=== PATIENT | female | born 1955 | race Caucasian/White ===

== ENCOUNTER 2025-01-20 12:29 | Inpatient (IN) | payer MEDICARE, SELFPAY ==
[2025-01-20] VITALS (12 sets, daily range): BP systolic 100–219; BP diastolic 61–102; PULSE 53–75; RESP 13–19; TEMP 36.4–36.7; O2SAT 92–96; BMI 21.1
--- NOTE | ~2025-01-20 | CT_ITS ---
EXAMINATION: CT HEAD WITHOUT IV CONTRAST HISTORY: SAENZ, hypertensive. TECHNIQUE: Unenhanced helical CT of the head was performed per standard departmental protocol. Coronal and sagittal reformats of the head were also evaluated. One or more of the following techniques was used for dose reduction: Automated exposure control, adjustment of the mA and/or kV according to patient size, use of iterative reconstruction technique. DLP: 695 mGy-cm COMPARISON: There are no prior studies for comparison. FINDINGS: BRAIN: The brain parenchyma is unremarkable. There is normal hurst/white differentiation. The ventricular system is normal in size and configuration. There is no mass effect or midline shift. No intra- or extra-axial fluid collections are identified. SINUSES: The visualized paranasal sinuses are clear. The mastoid air cells and middle ear cavities are well pneumatized. ORBITS: The visualized orbits are unremarkable. BONES/SOFT TISSUES: The extracranial soft tissues are unremarkable. The calvarium is intact. No suspicious lytic or sclerotic lesions. CT/CT head/brain wo IV con IMPRESSION: Unremarkable unenhanced head CT. Electronically signed by: Nick Guillory MD 01/20/2025 02:29 PM [facility]
--- NOTE | ~2025-01-20 | XR_ITS ---
CLINICAL HISTORY: sob 1 view chest x-ray Comparison: None Findings: The lungs are clear. Heart size is normal. No acute fracture. IMPRESSION: 1. No acute findings. This document has been electronically signed by: Gabino Smith MD on 01/20/2025 20:56:25
--- NOTE | 2025-01-20 12:34 | ED_ITS ---
HPI - General Adult General Chief complaint: Upper Respiratory Symptoms Stated complaint: Flu symptoms Time Seen by Provider: 01/20/25 17:50 Source: patient Limitations: no limitations History of Present Illness ED Provider: Julia Garcia PA-C HPI narrative: 69-year-old female with a history of COPD, hypertension, ongoing tobacco abuse presents with multiple complaints. Patient states she has had cough and cold symptoms for a week. Associated lethargy, nausea, vomiting, diarrhea, body aches and headache. The cough is dry and repetitive. Patient denies sick contacts with similar symptoms. Denies abdominal pain, recent travel, recent use of antibiotics or hospitalizations. Patient states she was seen at urgent care earlier this week, she was given a prescription for her cough, however she can not recall what it was. Related Data Home Medications ?Medication ?Instructions ?Recorded ?Confirmed albuterol sulfate 90 mcg/actuation 2 puff inhalation Q6H PRN wheezing 01/21/25 01/21/25 aerosol inhaler atenolol 25 mg tablet 37.5 mg PO DAILY 01/21/25 01/21/25 cholecalciferol (vitamin D3) 50 50 mcg PO DAILY 01/21/25 01/21/25 mcg (2,000 unit) capsule citalopram 40 mg tablet 40 mg PO DAILY 01/21/25 01/21/25 cyanocobalamin (vitamin B-12) 1,000 mcg PO DAILY 01/21/25 01/21/25 1,000 mcg tablet doxycycline hyclate 100 mg tablet 100 mg PO BID 01/21/25 01/21/25 fluticasone 250 mcg-salmeterol 50 1 ea inhalation BID 01/21/25 01/21/25 mcg/dose blistr powdr for inhalation lisinopril 40 mg tablet 40 mg PO DAILY 01/21/25 01/21/25 ondansetron 4 mg disintegrating 4 mg PO Q8H PRN Nausea And Vomiting 01/21/25 01/21/25 tablet pravastatin 20 mg tablet 20 mg PO DAILY 01/21/25 01/21/25 primidone 50 mg tablet 50 mg PO TID 01/21/25 01/21/25 Allergies Allergy/AdvReac Type Severity Reaction Status Date / Time No Known Allergies Allergy Verified 01/20/25 12:34 Review of Systems 2 Review of Systems: Yes all other systems are reviewed and are negative Constitutional: Constitutional: Reports fatigue, Reports fever(s) and Reports headache(s) ENT: Reports headache(s) Cardiovascular: Cardiovascular: Denies chest pain and Reports dyspnea Respiratory: Respiratory: Denies chest congestion, Reports cough and Reports dyspnea Gastrointestinal: Gastrointestinal: Denies abdominal pain, Reports diarrhea, Reports nausea and Reports vomiting Musculoskeletal: Musculoskeletal: Reports myalgias Neurologic: Reports headache(s) Endocrine: Endocrine: Reports fatigue PMF Past Medical History Attestation statement: The following information was validated with the patient. Medical History (Updated 01/21/25 @ 03:26 by Pal Bello MD) COPD (chronic obstructive pulmonary disease) Smoker unmotivated to quit Essential hypertension Social History Social History Smoked in Last 30 Days: Yes Advance Directives: No Advance Directives Information Provided: No Do you have a plan to hurt others: No Plan Patient : No Physical Exam ED Vital Signs: Vital Signs - 24 hr 01/20/25 12:32 01/20/25 18:32 01/20/25 18:39 Temperature 97.6 F Pulse Rate 75 53 Respiratory Rate 18 Blood Pressure 185/102 H 200/97 H Pulse Oximetry 94 92 Oxygen Delivery Method Room Air Room Air Oxygen Flow Rate 01/20/25 19:01 01/20/25 19:10 01/20/25 19:18 Temperature 98.1 F Pulse Rate 58 61 58 Respiratory Rate 16 15 Blood Pressure 219/87 H 219/87 H 152/72 H Pulse Oximetry 93 93 Oxygen Delivery Method Room Air Nasal Cannula Oxygen Flow Rate 2 01/20/25 19:28 01/20/25 20:08 01/20/25 21:09 Temperature Pulse Rate 57 61 63 Respiratory Rate 13 19 Blood Pressure 180/88 H 171/78 H Pulse Oximetry 95 Oxygen Delivery Method Nasal Cannula Oxygen Flow Rate 2 01/20/25 22:01 01/20/25 22:46 01/20/25 23:52 Temperature 98.1 F 98.0 F Pulse Rate 68 66 75 Respiratory Rate 15 18 17 Blood Pressure 136/66 129/69 100/61 Pulse Oximetry 92 94 93 Oxygen Delivery Method Room Air Room Air Room Air Oxygen Flow Rate 01/21/25 00:52 01/21/25 00:52 01/21/25 02:01 Temperature 97.9 F Pulse Rate 59 Respiratory Rate 18 Blood Pressure 85/43 L 99/54 L 88/44 L Pulse Oximetry 92 Oxygen Delivery Method Room Air Oxygen Flow Rate 01/21/25 02:04 Temperature Pulse Rate Respiratory Rate Blood Pressure 100/51 L Pulse Oximetry Oxygen Delivery Method Oxygen Flow Rate BMI result Body Mass Index 21.1 Const Other: Alert, ill in appearance Orientation/consciousness: patient oriented x3 Neck Other: Full range of motion no meningeal signs Resp Other: Nonlabored respirations, faint rhonchi noted no wheezing Cardio Other: Normal peripheral perfusion Skin Other: Warm dry no rash Neuro General: patient oriented x3, gait normal, no focal motor deficits and CN's II- XI intact bilaterally Psych Other: Cooperative Course Course Course Narrative: This is a Rapid Medical Examination (RME) performed by Rosa Pichardo PA-C in triage. Full HPI, ROS, assessment and treatment plan per primary provider in the Main ED. 69 yo female here for eval of headache, fever (tmax 101), nausea, myalgias x10 days. seen at 5 days ago, tested neg for covid. no known sick contacts. + hypertensive - took her BP meds this morning. self discontinued eliquis 6-7 wks ago. exam nonfocal. Plan: viral swabs, CT head Reevaluation(s) Reevaluation #1: concern for sepsis, the patient is now objectively hypoxic, she is between 89 and 90% on room air with a good pleth, her initial vitals she was 92-94 % RA.... Adding blood cultures, lactic acid and a chest x-ray. Other screening labs and a viral panel were already obtained, she is mildly rhonchorous on exam, I am treating her for bronchitis/COPD exacerbation. Her pressures have been elevated, she does not require weight based IV fluid at this time, starting empiric antibiotic Time: 19:23 Reevaluation #2: Blood pressure refractory, ordering additional IV labetalol Reevaluation #3: Pressures improved, we will give 100 mg of oral labetalol Additional Reevaluation(s): Pressure has remained stable, and We ambulated the patient, her oxygen dropped to 88% she became more dyspneic, we will admit Medications Administered Generic Name Dose Route Start Last Admin Trade Name Freq PRN Reason Stop Dose Admin Albuterol/Ipratropium 3 ml 01/21/25 03:00 01/21/25 07:48 Albuterol/Iprat 2.5/0.5mg 3 Ml Ampul.Neb INHALE 3 ml Q6H TIFFANIE Administration Sodium Chloride 3 ml 01/21/25 08:00 01/21/25 07:35 0.9 % Sodium Chloride Flush 3 Ml Syringe IVFLUSH Not Given QSHIFT TIFFANIE Discontinued Medications Generic Name Dose Route Start Last Admin Trade Name Aung PRN Reason Stop Dose Admin Albuterol/Ipratropium 3 ml 01/20/25 19:22 01/20/25 19:26 Albuterol/Iprat 2.5/0.5mg 3 Ml Ampul.Neb INHALE 01/20/25 19:23 3 ml ONCE ONE Administration Ceftriaxone Sodium 2 gm 01/20/25 19:23 01/20/25 20:05 Ceftriaxone Sodium 2 Gm Vial IVPUSH 01/20/25 19:24 2 gm ONCE ONE Administration Diphenhydramine HCl 25 mg 01/20/25 18:03 01/20/25 18:33 Diphenhydramine Hcl 50 Mg/Ml Vial IVPUSH 01/20/25 18:04 25 mg ONCE ONE Administration Magnesium Sulfate 2 gm in 50 mls @ 25 mls/hr 01/20/25 17:51 01/20/25 21:08 Magnesium Sulfate/H2o IV 01/20/25 19:50 Infused ONCE ONE Infusion Azithromycin 500 mg/ Sodium 250 mls @ 125 mls/hr 01/20/25 20:02 01/20/25 22:47 Chloride IV 01/20/25 22:01 Infused ONCE ONE Infusion Sodium Chloride 1,000 mls @ 999 mls/hr 01/21/25 01:00 01/21/25 02:10 Ns IV 01/21/25 02:00 Infused .Q1H1M TIFFANIE Infusion Sodium Chloride 1,000 mls @ 999 mls/hr 01/21/25 02:15 01/21/25 03:26 Ns IV 01/21/25 03:15 Infused .Q1H1M TIFFANIE Infusion Sodium Chloride 1,000 mls @ 250 mls/hr 01/21/25 02:51 01/21/25 07:35 Ns IVCONT 01/21/25 06:50 Infused .Q4H ONE Infusion Ketorolac Tromethamine 15 mg 01/20/25 18:03 01/20/25 18:33 Ketorolac Tromethamine 15 Mg/Ml Vial IVPUSH 01/20/25 18:04 15 mg ONCE ONE Administration Labetalol HCl 20 mg 01/20/25 18:03 01/20/25 18:32 Labetalol Hcl 100 Mg/20 Ml Vial IVPUSH 01/20/25 18:04 20 mg ONCE ONE Administration Labetalol HCl 30 mg 01/20/25 19:05 01/20/25 19:10 Labetalol Hcl 100 Mg/20 Ml Vial IVPUSH 01/20/25 19:06 30 mg ONCE ONE Administration Labetalol HCl 100 mg 01/20/25 20:37 01/20/25 21:09 Labetalol Hcl 100 Mg Tablet PO 01/20/25 20:38 100 mg ONCE ONE Administration Protocol Methylprednisolone Sodium Succinate 125 mg 01/20/25 19:06 01/20/25 19:11 Methylprednisolone Sod Succ 125 Mg/2 Ml Vial IVPUSH 01/20/25 19:07 125 mg ONCE ONE Administration Ondansetron HCl 4 mg 01/20/25 12:37 01/20/25 12:39 Ondansetron Odt 4 Mg Tab.Rapdis TRANSLINGU 01/20/25 12:38 4 mg ONCE ONE Administration Prochlorperazine Edisylate 10 mg 01/20/25 18:03 01/20/25 18:33 Prochlorperazine Edisylate 10 Mg/2 Ml Vial IVPUSH 01/20/25 18:04 10 mg ONCE ONE Administration Medical Decision Making Medical Decision Making MDM Narrative: 69-year-old female with a history of COPD, hypertension, ongoing tobacco abuse presents with multiple complaints. Patient states she has had cough and cold symptoms for a week. Associated lethargy, nausea, vomiting, diarrhea, body aches and headache. The cough is dry and repetitive. Patient denies sick contacts with similar symptoms. Denies abdominal pain, recent travel, recent use of antibiotics or hospitalizations. Patient states she was seen at urgent care earlier this week, she was given a prescription for her cough, however she can not recall what it was. Problem: COPD History: Per patient I have considered the following differential diagnoses: COPD exacerbation, pneumonia, bronchitis, sepsis, viral syndrome, hypertensive urgency , headache, intracranial hemorrhage, meningitis Plan:concern for sepsis, the patient is now objectively hypoxic, she is between 89 and 90% on room air with a good pleth, her initial vitals she was 92-94 % RA.... Adding blood cultures, lactic acid and a chest x-ray. Other screening labs and a viral panel were already obtained, she is mildly rhonchorous on exam, I am treating her for bronchitis/COPD exacerbation. Her pressures have been elevated, she does not require weight based IV fluid at this time, starting empiric antibiotics. In regard to her hypertension, she takes atenolol, she states she has been taking her medications as directed. We will be treating with IV labetalol. Patient was here also with a headache, likely part of her illness, CT scan of the brain was ordered and is negative. Unclear why this was ordered, the patient was not altered, she is neurologically intact, she is not actively vomiting to suggest an intracranial hemorrhage. Also thought about meningitis, however there were no meningeal signs on exam I have independently reviewed the following tests: Labs: No leukocytosis, not anemic, magnesium low we will replenish with 2 g of magnesium IV, viral panel negative EKG: Normal sinus rhythm, rate of 65, no active ischemic changes no ectopy QTC 457 Chest x-ray:Findings: The lungs are clear. Heart size is normal. No acute fracture. IMPRESSION: 1. No acute findings. CT brain:Unremarkable unenhanced head CT. Lab Data 01/21/25 05:12 01/21/25 05:12 Labs: Lab Results 01/20/25 01/20/25 Range/Units 12:49 19:57 WBC 8.6 (4.8-10.8) X10*3/uL RBC 5.34 (4.20-5.50) X10*6/uL Hgb 16.7 H (12.0-16.0) g/dl Hct 46.5 (37.0-47.0) % MCV 87.1 (80.0-98.0) fL MCH 31.3 (27.0-33.0) pg MCHC 35.9 H (31.0-35.0) g/dl RDW 13.6 (11.0-16.0) % Plt Count 237 (160-400) X10*3/uL MPV 9.7 (9.4-12.3) fL Immature Gran % (Auto) 0.3 (0.0-0.4) % Neut % (Auto) 69.0 (45-73) % Lymph % (Auto) 20.6 (20-40) % [place] % (Auto) 9.4 (2-11) % Eos % (Auto) 0.6 (0-4) % Baso % (Auto) 0.1 (0-2) % Lymph # (Auto) 1.8 (1.2-4.9) X10*3/uL [place] # (Auto) 0.8 (0.1-1.2) X10*3/uL Eos # (Auto) 0.1 (0.0-0.4) X10*3/uL Baso # (Auto) 0.0 (0.0-0.2) X10*3/uL Abs Immat Gran (auto) 0.03 (0.00-0.03) X10*3/uL Absolute Neuts (auto) 5.9 (2.0-8.3) x10*3/uL Absolute Nucleated RBC 0.000 (0.0-0.012) X10*3/uL Nucleated RBC % (auto) 0.0 (0.0-0.2) /100WBC Sodium 131 L (135-145) mmol/L Potassium 4.1 (3.3-5.1) mmol/L Chloride 97 (96-108) mmol/L Carbon Dioxide 20 L (22-29) mmol/L Anion Gap 18 (12-20) BUN 16 (9-16) mg/dL Creatinine 0.71 (0.5-1.4) mg/dL Estim Creat Clear Calc 67.2 Estimated GFR > 60 Random Glucose 104 (60-115) mg/dL Lactic Acid 1.4 (0.5-2.0) mmol/L Calcium 9.7 (8.4-10.2) mg/dL Magnesium 1.3 L* (1.6-2.6) mg/dL Total Bilirubin 0.5 (0.0-1.0) mg/dL AST 24 (5-31) U/L ALT 13 (0-31) U/L Alkaline Phosphatase 128 H (39-117) U/L Troponin I High Sens < 2.7 (<3.5-17.0) ng/L Total Protein 7.8 (6.5-8.0) g/dL Albumin 3.9 (3.5-5.0) g/dL Influenza Type A (PCR) NEGATIVE (Negative) Influenza Type B (PCR) NEGATIVE (Negative) RSV RNA Qual (PCR) NEGATIVE (Negative) SARS-CoV-2 RNA (RT-PCR) NEGATIVE (Negative) Discharge Plan Discharge Clinical Impression: COPD exacerbation, Hypoxia, Hypertensive urgency
[2025-01-20] MEDS: Ondansetron ODT 4 MG TAB.RAPDIS TRANSLINGU (12:39)
--- NOTE | 2025-01-20 12:39 | ECG_ITS ---
Test Reason : HYPERTENSIVE Blood Pressure : */* mmHG Vent. Rate : 65 BPM Atrial Rate : 65 BPM P-R Int : 166 ms QRS Dur : 72 ms QT Int : 440 ms P-R-T Axes : 75 -47 69 degrees QTcB Int : 457 ms Normal sinus rhythm Possible Left atrial enlargement Left anterior fascicular block Inferior infarct , age undetermined Possible Anterior infarct , age undetermined Abnormal ECG When compared with ECG of 07-Jun-2015 14:19, QRS axis Shifted left Inferior infarct is now Present Referred By: Kim Pichardo Electronically Signed By: KASSIE ESCOBAR MD
[2025-01-20 12:56] LABS: MANUAL DIFF FLAG NO
[2025-01-20 12:59] LABS: Basophils Percent Auto 0.1 % (0-2); Eosinophils Absolute Auto 0.1 X10*3/uL (0.0-0.4); Eosinophils Percent Auto 0.6 % (0-4); Hematocrit 46.5 % (37.0-47.0); Hemoglobin 16.7 g/dl (12.0-16.0); Imm Gran Abs Auto 0.03 X10*3/uL (0.00-0.03); Imm Gran Pct Auto 0.3 % (0.0-0.4); Lymphocytes Absolute Auto 1.8 X10*3/uL (1.2-4.9); Lymphocytes Percent Auto 20.6 % (20-40); Mean Corpuscular HGB Conc 35.9 g/dl (31.0-35.0); Mean Corpuscular Hemoglobin 31.3 pg (27.0-33.0); Mean Corpuscular Volume 87.1 fL (80.0-98.0); Mean Platelet Volume 9.7 fL (9.4-12.3); Monocytes Absolute Auto 0.8 X10*3/uL (0.1-1.2); Monocytes Percent Auto 9.4 % (2-11); Neutrophils Absolute Auto 5.9 x10*3/uL (2.0-8.3); Platelet Count 237 X10*3/uL (160-400); Red Blood Count 5.34 X10*6/uL (4.20-5.50); Red Cell Distribution Width 13.6 % (11.0-16.0); White Blood Count 8.6 X10*3/uL (4.8-10.8)
[2025-01-20 13:37] LABS: Influenza A PCR NEGATIVE (Negative); Influenza B PCR NEGATIVE (Negative); Resp Syncy Virus RNA Qual PCR NEGATIVE (Negative); SARS COV2 PCR INHOUSE NEGATIVE (Negative)
[2025-01-20 15:48] LABS: Alkaline Phosphatase 128 U/L (39-117); Anion Gap 18 (12-20)
[2025-01-20 16:24] LABS: Alanine Aminotransferase 13 U/L (0-31); Albumin Level 3.9 g/dL (3.5-5.0); Aspartate Amino Transferase 24 U/L (5-31); Bilirubin Total 0.5 mg/dL (0.0-1.0); Blood Urea Nitrogen 16 mg/dL (9-16); Calcium 9.7 mg/dL (8.4-10.2); Carbon Dioxide 20 mmol/L (22-29); Chloride 97 mmol/L (96-108); Creatinine Clr Calc Pharmacy 67.2; Estimated Glomerular Filt Rate > 60; Glucose Random 104 mg/dL (60-115); Magnesium 1.3 mg/dL (1.6-2.6); Potassium 4.1 mmol/L (3.3-5.1); Sodium 131 mmol/L (135-145); Total Protein 7.8 g/dL (6.5-8.0)
--- OUTSIDE RECORDS SUMMARY | 2025-01-20 18:16 | XMS_ITS | Clinical Summary ---
Author Organization [facility] [employer] [facility] Address [address] [place] [address] Phone Care Team Providers Care Conditioner Tender Name Role Phone Max George MD Primary Care Provider [phone] Allergies No known active allergies Medications apixaban (Eliquis) 5 mg tablet Take 1 tablet (5 mg total) by mouth 2 (two) times a day. 180 tablet 1 09/22/20 24 Active Additional Information Patient not taking.Reported on 01/09/2025 atenoloL (TENORMIN) 25 mg tablet Take 1.5 tablets (37.5 mg total) by mouth 1 (one) time each day. 08/03/20 24 Active betamethasone, augmented, (DIPROLENE-AF) 0.05 % cream APPLY TO AFFECTED AREA TWICE A DAY NEEDED 03/26/20 22 Active cyanocobalamin (VITAMIN B-12) 1,000 mcg tablet Take 1 tablet (1,000 mcg total) by mouth 1 (one) time each day. 08/03/20 24 Active lisinopril (PRINIVIL,ZEST RIL) 40 mg tablet Take 1 tablet (40 mg total) by mouth 1 (one) time each day. 08/03/20 24 Active loperamide (IMODIUM) 2 mg capsule Take 1 Capsule by mouth 2 times daily as needed for Diarrhea. 11/10/20 23 Active primidone (MYSOLINE) 50 mg tablet Take 1 tablet (50 mg total) by mouth 1 (one) time each day. 09/09/20 23 Active pravastatin (PRAVACHOL) 20 mg tablet TAKE 1 TABLET BY MOUTH DAILY 90 tablet 1 12/08/19 25 Active albuterol HFA (PROAIR HFA ; PROVENTIL HFA ; VENTOLIN HFA) 90 mcg/actuation inhaler Inhale 2 puffs by mouth every 6 (six) hours if needed for wheezing. 6.7 g 11 12/12/19 25 026 Active cholecalcifero l (VITAMIN D-3) 25 mcg (1,000 unit) tablet Take 1 tablet (1,000 Units total) by mouth 1 (one) time each day. Active citalopram (CeleXA) 40 mg tablet Take 1 tablet by mouth once daily 90 each 3 01/09/20 25 Active cholecalcifero l (VITAMIN D-3) 50 mcg (2,000 unit) capsule Take 1 capsule (2,000 Units total) by mouth 1 (one) time each day. 08/03/20 24 025 Discontinued citalopram (CeleXA) 20 mg tablet Take 1 tablet (20 mg total) by mouth 1 (one) time each day. 08/03/20 24 025 Discontinued flecainide (TAMBOCOR) 50 mg tablet Take 1 tablet (50 mg total) by mouth 2 (two) times a day. 08/03/20 025 Discontinued furosemide (LASIX) 40 mg tablet Take 1 tablet (40 mg total) by mouth 1 (one) time each day. 09/10/20 23 025 Discontinued Active Problems Problem Noted Date Diagnosed Date Dyspnea 09/10/2023 Overview (10/19/2024): Last Assessment & Plan: The patient had been reporting episodes of shortness of breath with associated chest pain. She underwent a pharmacological nuclear stress test which showed normal perfusion without evidence of ischemia or infarction. We discussed these results. Her symptoms are likely related to her COPD and she continues to follow with pulmonary and has been participating in pulmonary rehab with improvement in her symptoms. She continues on furosemide daily as prescribed. Patient advised to seek emergency medical attention by calling 911 if they were to develop severe dyspnea, chest pain that did not resolve with rest, or if they were to faint. A-fib 09/09/2023 Overview (10/19/2024): Last Assessment & Plan: The patient has a history of paroxysmal atrial fibrillation. She recently completed a 48-hour Holter monitor which showed normal sinus rhythm with sinus bradycardia with an average heart rate of 60 bpm. During times of symptoms, she was noted to be in sinus rhythm. She also completed an echocardiogram which showed normal LV function and no significant valvular abnormalities. Her heart rate is well-controlled today. She continues on rate control therapy with atenolol as prescribed. She is also on flecainide. She denies any perceptions of atrial fibrillation including palpitations or dizziness. She continues on anticoagulation with apixaban 5 mg orally twice daily based on her age, weight, and kidney function. She denies any excessive bruising or bleeding. At this point, we will continue current therapies. Assessment & Plan (01/11/2025 1:43 PM EST): Orders: Complete blood count; Future Comprehensive metabolic panel; Future Thyroid stimulating hormone; Future Lipid panel with reflex to direct LDL; Future Vitamin D 25 hydroxy; Future Chest pain 09/09/2023 Overview (10/19/2024): Last Assessment & Plan: The patient has been reporting episodes of chest discomfort. She does describe that her symptoms are usually worse with exerting herself with activities associated with shortness of breath as well as worse with taking deep breaths. During her hospitalization, inflammatory markers of ESR and CRP were significantly elevated. She was treated presumptively for acute pericarditis with colchicine which she will continue for 3 months. She was not treated for NSAIDs or aspirin given she was just started on Eliquis for new atrial fibrillation. She does report some improvement in her symptoms since her hospitalization. I will have her update new inflammatory markers to assess her ESR and CRP to ensure that they are downtrending. We also discussed that the episodes of chest discomfort and shortness of breath could be related to ischemia as a cause given her cardiac risk factors of hypertension, hyperlipidemia, and chronic tobacco use. I will have her complete an exercise nuclear stress test to assess for ischemia as a cause as well as assess her heart rates during activity. I will notify her of the results of soon as the become available. Patient advised to seek emergency medical attention by calling 911 if they were to develop severe dyspnea, chest pain that did not resolve with rest or nitroglycerin, or if they were to faint. Pulmonary edema 09/09/2023 Stage 1 mild COPD by GOLD classification 023 Overview (10/19/2024): Last Assessment & Plan: 68-year-old woman with stage I COPD Congratulated her because she has been ready more than 6 months without smoking after 40 pack years Continue with dual therapy with Anoro/Ellipta 1 puff once a day Continue with Combivent as a rescue inhaler Patient is already enrolled in the lung cancer screening program Return to clinic in [address] Carballo. B12 deficiency 04/05/2019 Ingrown nail 04/05/2019 Osteopenia 04/05/2019 Panic attack 06/01/2018 Primary osteoarthritis of both shoulders 015 Hyperlipidemia 05/04/2015 Anxiety 10/17/2013 Essential tremor 05/16/2013 Depression 02/14/2013 Insomnia 02/14/2013 HTN (hypertension) 01/24/2013 Overview (10/19/2024): Last Assessment & Plan: Patient's blood pressure is well-controlled today with a reading of 110/60. She will continue her current antihypertensive medication regimen with lisinopril and atenolol as prescribed. Assessment & Plan (01/11/2025 1:43 PM EST): Orders: Complete blood count; Future Comprehensive metabolic panel; Future Thyroid stimulating hormone; Future Lipid panel with reflex to direct LDL; Future Vitamin D 25 hydroxy; Future Macrocytosis 12/10/2010 Vitamin D deficiency 12/09/2010 Assessment & Plan (01/11/2025 1:43 PM EST): Orders: Complete blood count; Future Comprehensive metabolic panel; Future Thyroid stimulating hormone; Future Lipid panel with reflex to direct LDL; Future Vitamin D 25 hydroxy; Future Hand eczema 12/05/2010 Encounters Date Type Department Care Team Description 01/09/2025 3:00 PM EST Office Visit Adult Medicine [address] [phone] Braydon Hunter PA Hypertension, unspecified type (Primary Dx); Atrial fibrillation, unspecified type (CMS/[facility]); Vitamin D deficiency; Tubular adenoma [facility] [address] [place] [address] Julieta Carballo MD Med Refill from Last 3 Months Immunizations Name Administration Dates Next Due Pfizer SARS-CoV-2 COVID-19, mRNA, LNP-S, preservative free 07/05/2021,06/20/2021 Td Tetanus diptheria (Tdvax) 7yo and older 04/27 Tdap Tetanus diptheria acell ular pertussis (Boostrix; Adacel) 7yo and older 03/13/2008 Surgical History Surgery Date Site/Laterality Comments KNEE SURGERY Left PROCEDURE: HISTORICAL KNEE SURGERY APPENDECTOMY PROCEDURE: HISTORICAL APPENDECTOMY COLONOSCOPY 03/12/2017 PROCEDURE: HISTORICAL COLONOSCOPY; COMMENT: normal; repeat in 10 yrs UPPER GASTROINTESTINAL ENDOSCOPY 08/10/2019 PROCEDURE: [place] UPPER GI ENDOSCOPY PERFORMED; COMMENT: Normal; duodenal bx: normal. COLONOSCOPY 08/10/2019 PROCEDURE: HISTORICAL COLONOSCOPY; COMMENT: Solitary 4 mm polyp; random biopsies obtained. Random bx normal; tubular adenoma. Medical History Medical History Date Comments Vitamin D deficiency DX:Vitamin D deficiency Tremor DX:Tremor Vitamin D deficiency disease DX: Vitamin D deficiency disease HTN (hypertension) DX:HTN (hyper tension) Hyperlipidemia DX:Hyperlipidemi a Insomnia DX:Insomnia DJD of shoulder DX:DJD of should er; COMMENT: pt denies this Smoker DX:Smoker Family History Medical History Relation Name Comments Lung cancer Father Diabetes Maternal Grandmother Colon cancer Mother Hypertension Mother Alcohol abuse Sister 1 Cirrhosis Sister 1 Breast cancer Neg Hx Ovarian cancer Neg Hx Relation Name Status Comments Brother Alive Father (Age 83) lung cance r Maternal Grandmother Mother dm, Sister 1 Sister 2 (Age 40's) etoh Sister 3 (Age 40's) etoh Social History Tobacco Use Types Packs/Day Years Used Date Smoking Tobacco: Former Cigarettes Q uit: 07/17/2023 Smokeless Tobacco: Never Alcohol Use Standard Drinks/Week Comments Not Currently 5.8 (1 standard drink = 0.6 oz p ure alcohol) Comments Unknown Sex and Gender Information Value Date Recorded Sex Assigned at Not on file Legal Sex Female 1:40 PM EST Gender Identity Not on file Sexual Orientation Not on file Obstetrics History Last Filed Vital Signs Vital Sign Reading Time Taken Comments Blood Pressure 110/60 08/03/2024 1:58 PM EDT Pulse 56 08/03/2024 1:58 PM EDT Temperature 36.4 ??C (97.6 ??F) 01/09/2025 3:15 PM ES T Respiratory Rate - - Oxygen Saturation - - Inhaled Oxygen Concentration - - Weight 61.2 kg (135 lb) 01/09/2025 3:15 PM EST Height 160 cm (5' 3 ) 01/09/2025 3:15 PM EST Body Mass Index 23.91 01/09/2025 3:15 PM EST Plan of Treatment Upcoming Encounters Date Type Department Care Team (Late st Contact Info) Description 01/26/2025 8:40 AM EDT Office Visit [facility] [address] [place] [address] [place] [address] Lisa Jarvis NP [address] [place] [address] [address] [place] [address] 01/30/2025 2:00 PM EDT Office Visit Pulmonolgy - [facility] [address] [facility] [address] [place] [phone] Julieta Carballo MD [address] [facility] [address] [place] [address] 05/11/2025 2:30 PM EDT Office Visit Adult Medicine [place] - [address] [phone] Stacey Griffin PA [address] [place] [id number] 05/22/2025 1:00 PM EDT Appointment Radiology Department - [address] [phone] Health Maintenance Due Date Last Done Comments Pneumococcal Vaccine: 50+ Years (1 of 2 - PCV) 1974 Zoster Vaccines (1 of 2) 2005 RSV Immunization Patients 60+ Years Old (1 - Risk 60-74 years 1-dose series) 2015 Social Influencers of Health Screening 10/25/2022 COVID-19 Vaccine (3 - season) 2024 07/05/2021, 06/20/2021 Influenza Vaccine (#1) 2024 Colorectal Cancer Screening: Colonoscopy 08/10/2024 08/10/2019, 03/12/2017 Hypertension/CHF/CAD Annual BMP Blood Test 11/10/2024 11/10/2023 Lung Cancer Screening (Low Dose CT) 08/15/2025 08/15/2024, 08/12/2024, 12/28/2022 Depression Screening 01/09/2026 01/09/2025 Falls Risk Assessment 01/09/2026 01/09/2025, 025 Medicare Annual Wellness Visit 01/09/2026 01/09/2025 Breast Cancer Screening 05/12/2026 05/12/20, 05/12/2024, 04/30/2023, Additional history exists Cholesterol Screening (Lipid Panel) 12/05/2027 12/05/2022 DTaP,Tdap,and Td Vaccines (3 - Td or Tdap) 04/27/2028 04/27/2018, 03/13/2008 Osteoporosis Screening (Bone Density Screening) 01/22/2033 01/22/2023, 07/02/2018 Hepatitis C Screening Completed 05/16/2013 HIB Vaccines Aged Out No longer eligi ble based on patient's age to complete this topic HPV Vaccines Aged Out No longer eligi ble based on patient's age to complete this topic Hepatitis A Vaccines Aged Out No long er eligible based on patient's age to complete this topic Hepatitis B Vaccines Aged Out No long er eligible based on patient's age to complete this topic IPV Vaccines Aged Out No longer eligi ble based on patient's age to complete this topic MMR Vaccines Aged Out No longer eligi ble based on patient's age to complete this topic Meningococcal ACWY Vaccine Aged Out N o longer eligible based on patient's age to complete this topic Meningococcal B Vacine Aged Out No lo nger eligible based on patient's age to complete this topic RSV Immunization Patients Under 20 months Aged Out No longer eligible based on patient's age to complete this topic Varicella Vaccines Aged Out No longer eligible based on patient's age to complete this topic Procedures Procedure Name Priority Date/Time Associated Diagnosis Comments CT LUNG SCREENING LOW DOSE Routine 08/15/2024 10:40 AM EDT SCREENING MAMMOGRAPHY BI 2-VIEW BREAST INC CAD Routine 05/12/2024 9:52 AM EDT Encounter for screening mammogram for malignant neoplasm of breast ANNUAL BMP BLOOD TEST Routine 11/10/2023 DXA BONE DENSITY STUDY 1+ SITS AXIAL SKEL Routine 01/22/2023 11:40 AM EST Other specified disorders of bone density and structure, unspecified site LIPID PANEL Routine 12/05/2022 COLONOSCOPY Routine 08/10/2019 HEPATITIS C SCREENING Routine 05/16/2013 from Last 3 Months or Most Recently Relevant to Health Maintenance Results * CT LUNG SCREENING LOW DOSE (08/15/2024 10:40 AM EDT) Anatomical Region Laterality Modality Computed Tomogra phy 08/12/2024 2:27 PM EDT Narrative 08/15/2024 10:40 AM EDT [facility] Diagnostic Imaging Department [address] [place], [place] [id number] Patient: ??RAYA STEINER ?/Age/Sex: 1955 - 69 - F Unit#: ??[id number] ? Location/Status: ??SPDICATLS/REG CLI ? Mnemonic/Ordering Site: ??CTLUNGLD/SPCT Ordering Physician: ??DAVID CRUZ MD CT Lung Screening Low Dose - 08/12/24 - [id number] Report Status:Signed INDICATION: Current smoker with 44 pack-year smoking history FINDINGS: Low-dose CT scan of the chest obtained as a lung cancer screening study. Scanner: NeuroVista speed 64 slice VCT Dose reduction technique: ASIR (Adaptive statistical iterative reconstruction) and/or AEC (automated exposure control) Dose: total exam DLP 168 mGY per cm COMPARISON: Compared to multiple prior studies most recent chest CTA from August 06, 2023. Lung: Emphysematous changes with persistent bilateral upper lobe peripheral groundglass attenuation small nodules suggestive of respiratory bronchiolitis, similar to the prior study. Grouping of 3 adjacent 2 mm nodules noted anteriorly in the right upper lobe seen best on series 3 image 90. Mild parenchymal scarring medial right middle lobe, right lung base and lingula. Resolved small left effusion as well as left lower lobe atelectatic changes. Lymph nodes: No thoracic lymphadenopathy. Mediastinum: Trachea and esophagus are within normal limits. Heart normal in size and shape without pericardial effusion. Mediastinal vascular structures are normal in course and caliber. Bony structures: Within normal limits for the patient's age. IMPRESSION: 3 adjacent 2 mm nodules anteriorly in the right upper lobe are likely post infectious/inflammatory in origin. Lung RADS 2, recommend low-dose screening chest CT in 12 months Dictating Physician: ??LAWRENCE JOHNSTON MD Electronically Signed by: ??LAWRENCE JOHNSTON MD Dic Date/Time: ??08/15/24 1028 Sign date/Time: ??08/15/24 1040 Procedure Note Lawrence Johnston MD - 08/31/2024 [facility] Diagnostic Imaging Department [address] [place] [id number] Patient: RAYA STEINER /Age/Sex: 1955 - 69 - F Unit#: [id number] Location/Status: SPDICATLS/REG CLI [facility] Ordering Physician: DAVID CRUZ MD CT Lung Screening Low Dose - 08/12/24 - [id number] Report Status:Signed INDICATION: Current smoker with 44 pack-year smoking history FINDINGS: Low-dose CT scan of the chest obtained as a lung cancerscreening study. Scanner: NeuroVista speed 64 slice VCT Dose reduction technique: ASIR (Adaptive statistical iterativereconstruction) and/or AEC (automated exposure control) Dose: total exam DLP 168 mGY per cm COMPARISON: Compared to multiple prior studies most recent chest CTAfrom August 06, 2023. Lung: Emphysematous changes with persistent bilateral upper lobeperipheral groundglass attenuation small nodules suggestive of respiratorybronchiolitis, similar to the prior study. Grouping of 3 adjacent 2 mm nodules notedanteriorly in the right upper lobe seen best on series 3 image 90. Mild parenchymal scarring medial right middle lobe, right lung base and lingula. Resolvedsmall left effusion as well as left lower lobe atelectatic changes. Lymph nodes: No thoracic lymphadenopathy. Mediastinum: Trachea and esophagus are within normal limits. Heart normalin size and shape without pericardial effusion. Mediastinal vascularstructures are normal in course and caliber. Bony structures: Within normal limits for the patient's age. IMPRESSION: 3 adjacent 2 mm nodules anteriorly in the right upper lobe are likelypost infectious/inflammatory in origin. Lung RADS 2, recommend low-dose screening chest CT in 12 months Dictating Physician: LAWRENCE JOHNSTON MD Electronically Signed by: LAWRENCE JOHNSTON MD Dic Date/Time: 08/15/24 1028 Sign date/Time: 08/15/24 1040 David Cruz MD IMG CT PROCEDURES Final Result * SCREENING MAMMOGRAPHY BI 2-VIEW BREAST INC CAD (05/12/2024 9:52 AM EDT) Anatomical Region Laterality Modality Radiographic Amisha ging 04/30/2023 3:45 PM EDT Narrative 05/12/2024 12:02 PM EDT This is a summary report. The complete report is available in the patient's medical record. If you cannot access the medical record, please contact the sending organization for a detailed fax or copy. Full field digital screening 2D C views and tomosynthesis mammography, reviewed with CAD and compared to previous. The breasts are composed of fatty and fibroglandular tissue. ??No suspicious mass, architectural distortion or suspicious calcifications are identified. IMPRESSION: : No mammographic evidence of malignancy. BIRADS 1-Negative; N. 5 year breast cancer risk assessment 1.4 % Lifetime breast cancer risk assessment 4.6 % Breast cancer risk category Low (<15%) Procedure Note Samira Lackey MD - 08/31/2024 This is a summary report. The complete report is available in thepatient's medical record. If you cannot access the medical record, pleasecontact the sending organization for a detailed fax or copy. Full field digital screening 2D C views and tomosynthesis mammography,reviewed with CAD and compared to previous. The breasts are composed offatty and fibroglandular tissue. No suspicious mass, architecturaldistortion or suspicious calcifications are identified. IMPRESSION: : No mammographic evidence of malignancy. BIRADS 1-Negative; N. 5 year breast cancer risk assessment 1.4 % Lifetime breast cancer risk assessment 4.6 % Breast cancer risk category Low (<15%) Max George MD IMG XR PROCEDURES Final Result * Annual BMP Blood Test (11/10/2023) HM Annual BMP Blood Test abstracted us Historical Provider HEALTH MAINTENANCE Final Result * DXA BONE DENSITY STUDY 1+ SITS AXIAL SKEL (01/22/2023 11:40 AM EST) Anatomical Region Laterality Modality Bone Densitometr y 11/25/2022 1:49 PM EST Narrative 01/22/2023 8:29 PM EST BONE DENSITY SCAN (DEXA): FINDINGS: Lumbar Spine T-score is 1.0. ?? (SD relative to 20-29 y/o adult) Z-score is 2.9. ??(SD relative to age matched peers) This is considered normal by WHO criteria. Left Hip T-score is -1.6. Z-score is 0.1. This is considered osteopenia by WHO criteria. Comparison exam(s): 07/02/2018. ??5.5% loss of left hip bone mineral density and 5.1% increase in lumbar spine bone mineral density, both statistically significant at the 95% confidence level. IMPRESSION: IMPRESSION: Osteopenia by WHO criteria. This patient has a 8.8% risk of major osteoporotic fracture and a 1.9% risk of hip fracture over the next 10 years. (World Health Organization Fracture Risk Assessment) [facility] Department of Internal Medicine recommends using National Osteoporosis Foundation (NOF) guidelines in treatment decisions related to osteoporosis. NOF guidelines suggest considering treatment for postmenopausal women and men aged 50 or older presenting with the following: History of hip or vertebral fracture. T-score = -2.5 (DXA) at the femoral neck, total hip, or spine, after appropriate evaluation to exclude secondary causes. Low bone mass (T-score between -1.0 and -2.5 at the femoral neck or spine) AND a 10-year probability of a hip fracture = 3% OR a 10-year probability of a major osteoporosis-related fracture = 20% based on the [place]-adapted WHO algorithm Please note that all treatment decisions require clinical judgment and consideration of individual patient factors, including patient preferences, co-morbidities, previous drug use, risk factors not captured in the FRAX model (e.g., frailty, falls, vitamin D deficiency, increased bone turnover, interval significant decline in bone density) and possible under- or over-estimation of fracture risk by FRAX. Optional alternative screening schedule based on kvng Luong., [facility] December 04, 2011 for patients with osteopenia (based on hip BMD T-score) is as follows: * ??advanced osteopenia (T scores -2.00 to -2.49), BMD testing every year * ??moderate osteopenia (T scores -1.50 to -1.99), BMD testing every 5 years mild osteopenia or normal BMD (T scores -1.50 and higher), BMD testing every 15 years Procedure Note Kemi Blanco MD - 12/22/2023 BONE DENSITY SCAN (DEXA): FINDINGS: Lumbar Spine T-score is 1.0. (SD relative to 20-29 y/o adult) Z-score is 2.9. (SD relative to age matched peers) This is considered normal by WHO criteria. Left Hip T-score is -1.6. Z-score is 0.1. This is considered osteopenia by WHO criteria. Comparison exam(s): 07/02/2018. 5.5% loss of left hip bone mineraldensity and 5.1% increase in lumbar spine bone mineral density, both statistically significant atthe 95% confidence level. IMPRESSION: IMPRESSION: Osteopenia by WHO criteria. This patient has a 8.8% risk of majorosteoporotic fracture and a 1.9% risk of hip fracture over the next 10 years. (World HealthOrganization Fracture Risk Assessment) [facility] Department of Internal Medicine recommendsusing National Osteoporosis Foundation (NOF) guidelines in treatment decisions related toosteoporosis. NOF guidelines suggest considering treatment for postmenopausal women and menaged 50 or older presenting with the following: History of hip or vertebral fracture. T-score = -2.5 (DXA) at the femoral neck, total hip, or spine, afterappropriate evaluation to exclude secondary causes. Low bone mass (T-score between -1.0 and -2.5 at the femoral neck or spine)AND a 10-year probability of a hip fracture = 3% OR a 10-year probability of a majorosteoporosis-related fracture = 20% based on the [place]-adapted WHO algorithm Please note that all treatment decisions require clinical judgment andconsideration of individual patient factors, including patient preferences, co- morbidities,previous drug use, risk factors not captured in the FRAX model (e.g., frailty, falls, vitaminD deficiency, increased bone turnover, interval significant decline in bone density) andpossible under- or over-estimation of fracture risk by FRAX. Optional alternative screening schedule based on siena Luong al., NEJMJanuary 2011 for patients with osteopenia (based on hip BMD T-score) is as follows: * advanced osteopenia (T scores -2.00 to -2.49), BMD testing every year * moderate osteopenia (T scores -1.50 to -1.99), BMD testing every 5years mild osteopenia or normal BMD (T scores -1.50 and higher), BMD testingevery 15 years Result [facility] Braydon CAM IMG DXA PROCEDURES Final Result * Lipid panel (12/05/2022) [facility] LDL/HDL Ratio 2 0 - 4 Triglycerides 92 0 - 150 mg/dL Cholesterol 184 0 - 200 mg/dL HDL 88 >=40 mg/dL LDL Cholesterol 78 0 - 100 mg/dL Blood Venous blood specimen / Unknown Result [facility] Historical Provider LAB BLOOD ORDERABLES Mavis l Result * Colonoscopy (08/10/2019) [facility] Colonoscopy no interpreta tion,abstr acted Anatomical Region Laterality Modality Other Result [facility] Historical [facility] Final Result * Hepatitis C Screening (05/16/2013) [facility] Hepatitis C Screening abstracted Result [facility] Historical Provider HEALTH MAINTENANCE Final Result from Last 3 Months or Most Recently Relevant to Health Maintenance Insurance [employer] MEDICARE Advance Directives Documents on File Type Date Recorded Patient Observatory Director Expl anation Health Care Decision (hx) 08/10/2023 AD HAYES DIRECTIVE Health Care Decision (hx) 08/10/2023 AD HAYES DIRECTIVE Health Care Decision (hx) 08/10/2023 AD HAYES DIRECTIVE Health Care Decision (hx) 08/10/2023 AD HAYES DIRECTIVE Health Care Decision (hx) 08/10/2023 AD HAYES DIRECTIVE Care Teams Conditioner Tender Relationship Specialty Start Date End Date Max George MD [address] [place] [address] PCP - General Internal Medicine 05/08/15
--- OUTSIDE RECORDS SUMMARY | 2025-01-20 18:16 | XMS_ITS | Encounter Summary ---
Author Organization [facility] Address [address] [place] [address] Care Team Providers Care Latin Dance Instructor Name Role Phone Max George MD Primary Care Provider [phone] Reason for Referral * Consultation (Routine) - Closed Specialty Diagnoses / Procedures Referred By Chan hinojosa Referred To Contact Gastroenterology Diagnoses Tubular adenoma Braydon Hunter PA [address] [place] [address] Phone: tel: fax: Gastroenterology - [address] [place] [address] Phone: tel: fax: Referral ID Status Reason Start Date Expiration Date V isits Requested Visits Authorized [id number] Closed Specialty Services Required 01/11/2025 01/11/2026 1 1 Reason for Visit * Reason Comments Medicare Annual Wellness Visit Bryant hinojosa Encounter Details Date Type Department Care Team (Late st Contact Info) Description 01/09/2025 3:00 PM EST Office Visit Adult Medicine [facility] [address] [place] [id number] Braydon Hunter PA [address] [place], [place] Hypertension, unspecified type (Primary Dx); Atrial fibrillation, unspecified type (CMS/HCC); Vitamin D deficiency; Tubular adenoma Social History Tobacco Use Types Packs/Day Years [...] on file Sexual Orientation Not on file documented as of this encounter Last Filed Vital Signs Vital Sign Reading Time Taken Comments Blood Pressure - - Pulse - - Temperature 36.4 ??C (97.6 ??F) 01/09/2025 3:15 PM ES T Respiratory Rate - - Oxygen Saturation - - Inhaled Oxygen Concentration - - Weight 61.2 kg (135 lb) 01/09/2025 3:15 PM EST Height 160 cm (5' 3 ) 01/09/2025 3:15 PM EST Body Mass Index 23.91 01/09/2025 3:15 PM EST documented in this encounter Ordered Prescriptions Prescription Sig Dispense Quantity Refills Last Filled Start Date End Date citalopram (CeleXA) 40 mg tablet Take 1 tablet by mouth once daily 90 each 3 01/09/2025 documented in this encounter Progress Notes * DORINA Olson - 01/09/2025 3:00 PM ESTAssociated Problem(s): HTN (hypertension) Orders: Complete blood count; Future Comprehensive metabolic panel; Future Thyroid stimulating hormone; Future Lipid panel with reflex to direct LDL; Future Vitamin D 25 hydroxy; Future * DORINA Olson - 01/09/2025 3:00 PM ESTAssociated Problem(s): A-fib (CMS/HCC) Orders: Complete blood count; Future Comprehensive metabolic panel; Future Thyroid stimulating hormone; Future Lipid panel with reflex to direct LDL; Future Vitamin D 25 hydroxy; Future * DORINA Olson - 01/09/2025 3:00 PM ESTAssociated Problem(s): Vitamin D deficiency Orders: Complete blood count; Future Comprehensive metabolic panel; Future Thyroid stimulating hormone; Future Lipid panel with reflex to direct LDL; Future Vitamin D 25 hydroxy; Future * DORINA Olson - 01/09/2025 3:00 PM EST Medicare Annual Wellness Visit Note Patient Name: Raya Soler Date of : 1955 Race: White Ethnicity: Not Hispan/Lat Date of Service: 01/09/2025 Raya is a 69 y.o. female presenting for Medicare Annual Wellness Visit Subsequent History of Present Illness 69-year-old female here for evaluation of her medical conditions. She is also here for an annual wellness visit. She is atrial fibrillation, anxiety, B12 deficiency, hypertension, hyperlipidemia, vitamin D deficiency. She tells me she takes 40 mg of Celexa, not 20 mg, because she feels this dose works better for her anxiety. She needs a refill. She is seeing the cardio team in regards to her atrial fibrillation. She has not been taking her Eliquis regularly, she plans to discuss this with her cardiology team. We discussed the risks of untreated atrial fibrillation. She feels well. She does not have any complaints or concerns. 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 6.7 g 11 atenoloL (TENORMIN) 25 mg tablet Take 1.5 tablets (37.5 mg total) by mouth 1 (one) time each day. betamethasone, augmented, (DIPROLENE-AF) 0.05 % cream APPLY TO AFFECTED AREA TWICE A DAY NEEDED cholecalciferol (VITAMIN D-3) 25 mcg (1,000 unit) tablet Take 1 tablet (1,000 Units total) by mouth1 (one) time each day. cyanocobalamin (VITAMIN B-12) 1,000 mcg tablet Take 1 tablet (1,000 mcg total) by mouth 1 (one) time each day. lisinopril (PRINIVIL,ZESTRIL) 40 mg tablet Take 1 tablet (40 mg total) by mouth 1 (one) time each day. pravastatin (PRAVACHOL) 20 mg tablet TAKE 1 TABLET BY MOUTH DAILY 90 tablet 1 primidone (MYSOLINE) 50 mg tablet Take 1 tablet (50 mg total) by mouth 1 (one) time each day. apixaban (Eliquis) 5 mg tablet Take 1 tablet (5 mg total) by mouth 2 (two) times a day. (Patient not taking: Reported on 01/09/2025) 180 tablet 1 citalopram (CeleXA) 40 mg tablet Take 1 tablet by mouth once daily 90 each 3 loperamide (IMODIUM) 2 mg capsule Take 1 Capsule by mouth 2 times daily as needed for Diarrhea. (Patient not taking: Reported on 01/09/2025) No current facility-administered medications for this visit. Past Medical History: Diagnosis Date DJD of shoulder DX:DJD of shoulder; COMMENT: pt denies this HTN (hypertension) DX:HTN (hypertension) Hyperlipidemia DX:Hyperlipidemia Insomnia DX:Insomnia Smoker DX:Smoker Tremor DX:Tremor Vitamin D deficiency DX:Vitamin D deficiency Vitamin D deficiency disease DX:Vitamin D deficiency disease Past Surgical History: Procedure Laterality Date APPENDECTOMY PROCEDURE: HISTORICAL APPENDECTOMY COLONOSCOPY 03/12/2017 PROCEDURE: HISTORICAL COLONOSCOPY; COMMENT: normal; repeat in 10 yrs COLONOSCOPY 08/10/2019 PROCEDURE: HISTORICAL COLONOSCOPY; COMMENT: Solitary 4 mm polyp; random biopsies obtained. Random bx normal; tubular adenoma. KNEE SURGERY Left PROCEDURE: HISTORICAL KNEE SURGERY UPPER GASTROINTESTINAL ENDOSCOPY 08/10/2019 PROCEDURE: AK UPPER GI ENDOSCOPY PERFORMED; COMMENT: Normal; duodenal bx: normal. Social History Socioeconomic History Marital status: Spouse name: None Number of children: None Years of education: None Highest education level: None Occupational History None Tobacco Use Smoking status: Former Current packs/day: 0.00 Types: Cigarettes Quit date: 07/17/2023 Years since quittin.4 Smokeless tobacco: Never Substance and Sexual Activity Alcohol use: Not Currently Alcohol/week: 5.8 standard drinks of alcohol Drug use: Yes Types: Marijuana/Cannabis Sexual activity: None Other Topics Concern None Social History Narrative None Family History Problem Relation Name Age of Onset Hypertension Mother Colon cancer Mother Lung cancer Father Cirrhosis Sister Alcohol abuse Sister Diabetes Maternal Grandmother Breast cancer Neg Hx Ovarian cancer Neg Hx Immunizations: Immunization History Administered Date(s) Administered Pfizer SARS-CoV-2 COVID-19, mRNA, LNP-S, preservative free 06/20/2021, 07/05/2021 Td Tetanus diptheria (Tdvax) 7yo and older 04/27/2018 Tdap Tetanus diptheria acellular pertussis (Boostrix; Adacel) 7yo and older 03/13/2008 Hospitalization in the last year: Has not been hospitalized in last year Current Providers and Suppliers: Patient Care Team: Max George MD as PCP - General (Internal Medicine) Irving Chicas MD as Consulting Physician (Cardiology) Lisa Jarvis NP as Nurse Practitioner (Cardiology) Patient does not have/use current medical supplier Cognitive Function Assessment Cognitive screening performed. Depression/Mood Disorder Screening Depression Screening (PHQ2/9): Depression Screening Will the patient answer the depression risk questions?: Yes Over the last 2 weeks, how often have you been bothered by little interest or pleasure in doing things?: Not at all Over the last 2 weeks, how often have you been bothered by feeling down, depressed, or hopeless?: Not at all Depression Risk: 0 PHQ9 Full Set of Questions Over the last 2 weeks, how often have you been bothered by little interest or pleasure in doing things?: Not at all Over the last 2 weeks, how often have you been bothered by feeling down, depressed, or hopeless?: Not at all Depression Risk Score NEW: 0 Pain: Pain Medications: Patient does not take any opioid medications BMI: Body mass index is 23.91 kg/m??.. BMI is in the acceptable range. Functional Ability and Level of Safety Review Health Status: In general, the patient reports health as: good In general, patient reports life as: good Patient reports sleep pattern as: sleeping well Has stress been negatively affecting your life: No Has anger been negatively affecting your life: No Have you been bothered by unusual fatigue: No Activity of Daily Living (ADLs): Do you need help from others for your personal care such as eating, dressing, toileting, or gettingaround the house?: No Do you experience incontinence?: No Are you able to independently move around your home, with or without an assistive device such as a walker or wheelchair: Yes Do you need help from others grooming, bathing or dressing: No Do you need help from others with eating: No Do you need help from others for toileting: No Instrumental Activities of Daily Living (IADLs): Do you need help with using the telephone?: No Do you need help with shopping?: No Do you need help with food preparation?: No Do you need help with housekeeping?: No Do you need help with laundry?: No Do you need help handling finances?: No Do you drive?: Yes Do you manage your own medication?: Yes, independent Physical Activity: Do you exercise for about 20 minutes or more three days a week?: Yes, most of the time Nutritional Assessment: Do you eat a balanced diet including daily serving of fruits, vegetables, and whole grains?: Yes, most of the time Social Influencer of Health (SIOH): Sexual Health: Have you been bothered by sexual problems: Declined to answer Fall Risk: Have you fallen in the past year? yes. Are you worried about falling? no. . Hearing: No data recorded Vision Screening: Required for Medicare Initial Preventative Physical Exam (IPPE) No data recorded Review of Systems Review of Systems Constitutional: Negative for chills, fever and unexpected weight change. HENT: Negative for ear discharge, ear pain, facial swelling, sinus pain, sore throat and trouble swallowing. Eyes: Negative for discharge and visual disturbance. Respiratory: Negative for cough, chest tightness and shortness of breath. Cardiovascular: Negative for chest pain and leg swelling. Gastrointestinal: Negative for abdominal distention, abdominal pain, blood in stool, diarrhea and nausea. Endocrine: Negative for cold intolerance, heat intolerance, polydipsia and polyuria. Genitourinary: Negative for dysuria and flank pain. Musculoskeletal: Negative for gait problem and joint swelling. Skin: Negative for color change, rash and wound. Breast: Negative for breast lump or mass. Neurological: Negative for dizziness, syncope, facial asymmetry and headaches. Hematological: Negative for adenopathy. Psychiatric/Behavioral: Negative for confusion. Objective Temp 36.4 ??C (97.6 ??F) (Temporal) Ht 1.6 m (63 ) Wt 61.2 kg (135 lb) BMI 23.91 kg/m?? Physical Exam Constitutional: General: She is not in acute distress. Appearance: Normal appearance. She is not ill-appearing. HENT: Head: Normocephalic and atraumatic. Right Ear: Tympanic membrane, ear canal and external ear normal. There is no impacted cerumen. Left Ear: Tympanic membrane, ear canal and external ear normal. There is no impacted cerumen. Mouth/Throat: Mouth: Mucous membranes are moist. Pharynx: Oropharynx is clear. No oropharyngeal exudate or posterior oropharyngeal erythema. Eyes: General: No scleral icterus. Right eye: No discharge. Left eye: No discharge. Extraocular Movements: Extraocular movements intact. Conjunctiva/sclera: Conjunctivae normal. Pupils: Pupils are equal, round, and reactive to light. Neck: Vascular: No carotid bruit. Cardiovascular: Rate and Rhythm: Normal rate and regular rhythm. Pulses: Normal pulses. Heart sounds: Normal heart sounds. No murmur heard. Pulmonary: Effort: Pulmonary effort is normal. No respiratory distress. Breath sounds: Normal breath sounds. No wheezing, rhonchi or rales. Abdominal: General: Bowel sounds are normal. There is no distension. Palpations: Abdomen is soft. There is no mass. Tenderness: There is no abdominal tenderness. Hernia: No hernia is present. Musculoskeletal: General: No swelling, tenderness, deformity or signs of injury. Normal range of motion. Cervical back: Normal range of motion. No rigidity or tenderness. Right lower leg: No edema. Left lower leg: No edema. Lymphadenopathy: Cervical: No cervical adenopathy. Skin: General: Skin is warm and dry. Capillary Refill: Capillary refill takes less than 2 seconds. Coloration: Skin is not jaundiced. Findings: No bruising, erythema, lesion or rash. Neurological: General: No focal deficit present. Mental Status: She is alert and oriented to person, place, and time. Mental status is at baseline. Coordination: Coordination normal. Gait: Gait normal. Deep Tendon Reflexes: Reflexes normal. Psychiatric: Mood and Affect: Mood normal. Behavior: Behavior normal. Thought Content: Thought content normal. ASSESSMENT AND PLAN: Patient presented today for an Subsequent Medicare Wellness Visit with management of chronic condition(s). Assessment/Plan Assessment & Plan Hypertension, unspecified type Orders: Complete blood count; Future Comprehensive metabolic panel; Future Thyroid stimulating hormone; Future Lipid panel with reflex to direct LDL; Future Vitamin D 25 hydroxy; Future Atrial fibrillation, unspecified type (CMS/HCC) Orders: Complete blood count; Future Comprehensive metabolic panel; Future Thyroid stimulating hormone; Future Lipid panel with reflex to direct LDL; Future Vitamin D 25 hydroxy; Future Vitamin D deficiency Orders: Complete blood count; Future Comprehensive metabolic panel; Future Thyroid stimulating hormone; Future Lipid panel with reflex to direct LDL; Future Vitamin D 25 hydroxy; Future Tubular adenoma Orders: Ambulatory referral to Gastroenterology; Future Will check basic labs. Will refer to gastroenterology for another colonoscopy because previously she had tubular adenoma and is due for repeat. Discussed signs or symptoms that warrant immediate reevaluation. Follow-up in 4 months. Sooner if needed. She is asked to call with questions or concerns. Advance Care Planning Discussion: Advance Care Planning was discussed. Raya reports that she does not have advance directives or surrogate decision maker. have an advanced directive. Patient has not identified their surrogate decision maker. During the visit we discussed: Available Advanced Directive forms discussed A total time of 16 minutes or greater was spent on Advance Care Planning today :No Health Maintenance Health Maintenance Topic Date Due Pneumococcal Vaccine: 50+ Years (1 of 2 - PCV) Never done Zoster Vaccines (1 of 2) Never done RSV Immunization Patients 60+ Years Old (1 - Risk 60-74 years 1-dose series) Never done Social Influencers of Health Screening Never done Medicare Annual Wellness Visit Never done Influenza Vaccine (1) Never done COVID-19 Vaccine (2023- season) 2024 Colorectal Cancer Screening: Colonoscopy 08/10/2024 Hypertension/CHF/CAD Annual BMP Blood Test 11/10/2024 Lung Cancer Screening (Low Dose CT) 08/15/2025 Falls Risk Assessment 01/09/2026 Depression Screening 01/09/2026 Breast Cancer Screening 05/12/2026 Cholesterol Screening (Lipid Panel) 12/05/2027 DTaP,Tdap,and Td Vaccines (3 - Td or Tdap) 04/27/2028 Osteoporosis Screening (Bone Density Screening) 01/22/2033 Hepatitis C Screening Completed HIB Vaccines Aged Out Hepatitis B Vaccines Aged Out IPV Vaccines Aged Out Hepatitis A Vaccines Aged Out MMR Vaccines Aged Out Varicella Vaccines Aged Out Meningococcal ACWY Vaccine Aged Out Meningococcal B Vacine Aged Out HPV Vaccines Aged Out RSV Immunization Patients Under 20 months Aged Out DORINA Olson [facility] [address] Dept: [phone] Dept documented in this encounter Plan of Treatment Upcoming Encounters Date Type Department Care Team (Late st Contact Info) Description 01/26/2025 8:40 AM EDT Office Visit [facility] [place] [address] [place] [address] Lisa Jarvis NP [address] [place] [address] [address] [place] [address] 01/30/2025 2:00 PM EDT Office Visit Pulmonolgy - [place] [address] [facility] [address] [place] [address] Julieta Carballo MD [address] [facility] [address] [place] [address] 05/11/2025 2:30 PM EDT Office Visit Adult Medicine [address] [phone] Stacey Griffin PA [address] [place] [address] 05/22/2025 1:00 PM EDT Appointment Radiology Department - [address] [place] [address] Scheduled Orders Name Type Priority Associated Diagnoses Orde r Schedule Complete blood count Lab Routine Hypertension, unspecified type Atrial fibrillation, unspecified type (CMS/HCC) Vitamin D deficiency 1 Occurrences starting 01/09/2025 until 01/09/2026 Comprehensive metabolic panel Lab Routine Hypertension, unspecified type Atrial fibrillation, unspecified type (CMS/HCC) Vitamin D deficiency 1 Occurrences starting 01/09/2025 until 01/09/2026 Thyroid stimulating hormone Lab Routine Hypertension, unspecified type Atrial fibrillation, unspecified type (CMS/HCC) Vitamin D deficiency 1 Occurrences starting 01/09/2025 until 01/09/2026 Lipid panel with reflex to direct LDL Lab Routine Hypertension, unspecified type Atrial fibrillation, unspecified type (CMS/HCC) Vitamin D deficiency 1 Occurrences starting 01/09/2025 until 01/09/2026 Vitamin D 25 hydroxy Lab Routine Hypertension, unspecified type Atrial fibrillation, unspecified type (CMS/HCC) Vitamin D deficiency 1 Occurrences starting 01/09/2025 until 01/09/2026 Scheduled Referrals Name Type Priority Associated Diagnoses Order Schedule Ambulatory referral to Gastroenterology Outpatient Referral Routine Tubular adenoma 1 Occurrences starting 01/11/2025 until 01/11/2026 documented as of this encounter Visit Diagnoses Diagnosis Hypertension, unspecified type- Primary Atrial fibrillation, unspecified type (CMS/HCC) Vitamin D deficiency Tubular adenoma Benign neoplasm of unspecified site Encounter for screening mammogram for breast cancer documented in this encounter Discontinued Medications Medication Sig Discontinue Reason Start Date End Da te citalopram (CeleXA) 20 mg tablet Take 1 tablet (20 mg total) by mouth 1 (one) time each day. 08/03/2024 01/09/2025 flecainide (TAMBOCOR) 50 mg tablet Take 1 tablet (50 mg total) by mouth 2 (two) times a day. 08/03/2024 01/09/2025 furosemide (LASIX) 40 mg tablet Take 1 tablet (40 mg total) by mouth 1 (one) time each day. 09/10/2023 01/09/2025 cholecalciferol (VITAMIN D-3) 50 mcg (2,000 unit) capsule Take 1 capsule (2,000 Units total) by mouth 1 (one) time each day. 08/03/2024 01/09/2025 documented as of this encounter Historical Medications * This list may reflect changes made after this encounter. cholecalciferol (VITAMIN D-3) 25 mcg (1,000 unit) tablet Take 1 tablet (1,000 Units total) by mouth 1 (one) time each day. added in this encounter Additional Health Concerns Assessment Noted Time PHQ-9 Depression Total Score: 0 01/09/20 25 3:23 PM EST A fall risk assessment has been complete d for the patient 01/09/2025 3:22 PM EST documented as of this encounter Care Teams Latin Dance Instructor Relationship Specialty Start Date End Date Max George MD [address] [place] [address] PCP - General Internal Medicine 05/08/15 documented as of this encounter
[2025-01-20 18:24] LABS: Troponin-I High Sensitivity < 2.7 ng/L (<3.5-17.0)
[2025-01-20] MEDS: Labetalol HCL 100 MG/20 ML VIAL 20 MG IVPUSH (18:32)
[2025-01-20] MEDS: diphenhydrAMINE HCL 50 MG/ML VIAL 25 MG IVPUSH (18:33)
[2025-01-20] MEDS: Ketorolac Tromethamine 15 MG/ML VIAL IVPUSH (18:33)
[2025-01-20] MEDS: Prochlorperazine Edisylate 10 MG/2 ML VIAL IVPUSH (18:33)
[2025-01-20] MEDS: Magnesium Sulfate/H2O 2 GM/50 ML PIGGYBACK IV (19:03)
[2025-01-20] MEDS: Labetalol HCL 100 MG/20 ML VIAL 30 MG IVPUSH (19:10)
[2025-01-20] MEDS: methylPREDNISolone Sod Succ 125 MG/2 ML VIAL IVPUSH (19:11)
[2025-01-20] MEDS: Albuterol/Iprat 2.5/0.5MG 3 ML AMPUL.NEB INHALE (19:26)
[2025-01-20] MEDS: cefTRIAXone sodium 2 GM VIAL IVPUSH (20:05)
[2025-01-20 20:30] LABS: Lactic Acid 1.4 mmol/L (0.5-2.0)
[2025-01-20] MEDS: Azithromycin 500 MG in 0.9 % Sodium Chloride 250 ML 125 MG IV (20:38)
[2025-01-20] MEDS: Labetalol HCL 100 MG TABLET PO (21:09)
--- NOTE | 2025-01-20 23:00 | PC.NURSE ---
Addendum entered by Sarah Bansal RN 01/21/25 02:06: Pts BP noted to be 88/44 on RA and 100/51 on La after 1L of NS. Provider aware, pending new orders Addendum entered by Sarah Bansal RN 01/21/25 00:51: Pt noted to have BP of 85/43 on the left arm supine and 99/54 on the right arm supine. Provider aware, pending new orders Original Note: EDT attempted ambulation trial with pt, pt desat to 88% on RA and stated she felt dizzy. Provider aware.
[2025-01-21] VITALS (16 sets, daily range): BP systolic 85–176; BP diastolic 43–85; PULSE 56–80; RESP 13–20; TEMP 36.6–37; O2SAT 92–99
[2025-01-21] MEDS: 0.9 % Sodium Chloride 1,000 ML 999 ML IV ×2 (01:01→02:18)
--- NOTE | 2025-01-21 02:47 | P.HPHOSP_ITS ---
History of Present Illness Date of Service: 01/21/25 Attending physician on admission: Pal Bello Chief Complaint: Feeling generally weak with flu-like symptoms x 1 week Patient is a 69-year-old female with history of COPD, hypertension, and ongoing tobacco abuse who presents to the emergency room from home complaining of feeling generally weak with flu-like symptoms for the last 1 week. She describes generalized body aches, headaches, decreased appetite, dry cough and nasal congestion over the past one week. She has not been able to go to work (at [employer]) as she has been very weak. Today she was so weak that she could not even get off the couch and she also had a severe headache so she decided to come in for evaluation. She is long time smoker who has underlying COPD but did not endorse any associated shortness of breath or chest pain. Initial blood work done in the emergency department was significant for mild hyponatremia with a serum sodium of 131 mmol/L and hypomagnesemia at 1.3 for which she received IV magnesium sulfate replacement. She was also noted to be significantly hypertensive with a blood pressure of 219/87 mmHg which was treated with intravenous and oral labetalol with improvement. There was concern for COPD exacerbation so she received DuoNeb updrafts, steroids and antibiotics but when they tried to walk her, her oxygen saturation dropped to 88% hence the decision to admit her. She otherwise has no other complaints. Review of Systems 2 Review of Systems: Yes all other systems are reviewed and are negative PMFSH Medical History (Updated 01/21/25 @ 03:26 by Pal Bello MD) COPD (chronic obstructive pulmonary disease) Smoker unmotivated to quit Essential hypertension Functional capacity: independent ambulation Patient : No Meds Allergies Allergy/AdvReac Type Severity Reaction Status Date / Time No Known Allergies Allergy Verified 01/20/25 12:34 Physical Exam 2 Vital Signs and Narrative: Vital Signs: Last Vital Signs Temp 97.9 F 01/21/25 02:01 Pulse 59 01/21/25 02:01 Resp 18 01/21/25 02:01 BP 100/51 L 01/21/25 02:04 Pulse Ox 92 01/21/25 02:01 O2 Del Method Room Air 01/21/25 02:01 O2 Flow Rate 2 01/20/25 20:08 BMI result Body Mass Index 21.1 General: Well nourished but ill appearing. Awake, alert and oriented x 4. No apparent distress Eyes: No pallor or jaundice. PERRLA, EOMI HENT: Moist oral mucus membranes. No oropharyngeal lesions. Neck: Supple. No cervical adenopathy. No JVD Cardiovascular: Regular rate and rhythm. Normal heart sounds. No murmurs, rubs or gallops. No JVD. No peripheral edema. Respiratory: Normal respiratory effort with no accessory muscle use. CTAB. Gastrointestinal: Abdomen is soft, non-tender, non-distended. Normoactive bowel sounds in all quadrants. No hepatosplenomegaly Extremities: No edema. No calf tenderness. Good peripheral pulses Skin - Warm/Dry. No rashes. No mottling. Capillary refill is < 2 seconds Neurological: AAOx4. Intact speech & cognition. Normal gait & balance. CN II - XII grossly intact but not individually tested. No motor or sensory deficits Hematologic: No bleeding. No ecchymosis. No swollen or tender lymph nodes. Psychiatric: Cooperative. Appropriate mood and affect Results Labs 01/20/25 12:49 01/20/25 12:49 Labs: Laboratory Results - last 24 hr 01/20/25 01/20/25 12:49 19:57 MCV 87.1 MCH 31.3 MCHC 35.9 H RDW 13.6 Plt Count 237 MPV 9.7 Immature Gran % (Auto) 0.3 Neut % (Auto) 69.0 Lymph % (Auto) 20.6 [place] % (Auto) 9.4 Eos % (Auto) 0.6 Baso % (Auto) 0.1 Lymph # (Auto) 1.8 [place] # (Auto) 0.8 Eos # (Auto) 0.1 Baso # (Auto) 0.0 Abs Immat Gran (auto) 0.03 Absolute Neuts (auto) 5.9 Absolute Nucleated RBC 0.000 Nucleated RBC % (auto) 0.0 Anion Gap 18 Estim Creat Clear Calc 67.2 Estimated GFR > 60 Random Glucose 104 Lactic Acid 1.4 Calcium 9.7 Magnesium 1.3 L* Total Bilirubin 0.5 AST 24 ALT 13 Alkaline Phosphatase 128 H Total Protein 7.8 Albumin 3.9 Influenza Type A (PCR) NEGATIVE Influenza Type B (PCR) NEGATIVE RSV RNA Qual (PCR) NEGATIVE SARS-CoV-2 RNA (RT-PCR) NEGATIVE Imaging Radiologist's Impressions: Impressions Head CT 01/20/25 14:[address] Chest x-ray No acute findings Assessment and Plan (1) Hypertensive urgency: Status: Acute (2) Generalized weakness: Status: Acute (3) Electrolyte abnormality: Status: Acute (4) COPD (chronic obstructive pulmonary disease): Qualifiers: COPD type: COPD with acute exacerbation Qualified Code(s): J44.1 - Chronic obstructive pulmonary disease with (acute) exacerbation Status: Acute (5) Smoker unmotivated to quit: Status: Chronic Plan This is a 69-year-old female with a history of hypertension though not on treatment, COPD and who unfortunately continues to smoke here with: # hypertensive urgency -she presents with a blood pressure of 219/87 mmHg -this improved after she received both IV and oral labetalol -will admit for overnight observation -encourage low-salt diet and increased activity -will start on antihypertensive medication (Amlodipine) -encourage primary care provider follow-up -encourage smoking cessation # asthenia -she presents complaining of progressively worsening weakness over the last 1 week -she likely had a viral infection - probably the flu - that is resolving -encourage caloric intake -encouraged increased physical activity -consider physical therapy if she remains weak -consider discharged for short-term rehab if she remains weak # electrolyte imbalance -noted with mild hypomagnesemia and hyponatremia -magnesium was replaced -low sodium is likely due to mild dehydration -she has received IV fluids and so we will recheck electrolytes in the morning # COPD exacerbation -likely with mild exacerbation -oxygen saturation on ambulation was around 88% which is acceptable -will however continue treatment with steroids and DuoNebs -reassess in the morning # smoker -still unmotivated to quit -declines an RT -encouraged smoking cessation DVT: SC Lovenox CODE STATUS: Full code Admission for at least 2 midnights for management of hypertensive urgency, generalized weakness and COPD exacerbation This note is constructed using voice recognition software. While every effort has been made to ensure accuracy, paster operator errors may have been included. Total time managing care of this patient today: 75 minutes. Quality Stroke Does the patient have a stroke diagnosis?: No VTE Prior VTE?: No VTE Risk Level:: Medical - moderate - high VTE Device Contraindication: N/A - Device Ordered VTE Drug Contraindication: N/A - Med Ordered
[2025-01-21] MEDS: 0.9 % Sodium Chloride 1,000 ML 250 ML IVCONT (03:28)
[2025-01-21 06:09] LABS: Hematocrit 38.5 % (37.0-47.0); Hemoglobin 13.4 g/dl (12.0-16.0); Mean Corpuscular HGB Conc 34.8 g/dl (31.0-35.0); Mean Corpuscular Hemoglobin 30.7 pg (27.0-33.0); Mean Corpuscular Volume 88.3 fL (80.0-98.0); Platelet Count 217 X10*3/uL (160-400); Red Blood Count 4.36 X10*6/uL (4.20-5.50); Red Cell Distribution Width 13.7 % (11.0-16.0); White Blood Count 7.8 X10*3/uL (4.8-10.8)
[2025-01-21 06:36] LABS: Anion Gap 13 (12-20); Blood Urea Nitrogen 19 mg/dL (9-16); Carbon Dioxide 21 mmol/L (22-29); Chloride 106 mmol/L (96-108); Creatinine Clr Calc Pharmacy 67.2; Estimated Glomerular Filt Rate > 60; Potassium 4.6 mmol/L (3.3-5.1); Sodium 135 mmol/L (135-145)
[2025-01-21 06:37] LABS: Alanine Aminotransferase 8 U/L (0-31); Albumin Level 2.8 g/dL (3.5-5.0); Alkaline Phosphatase 94 U/L (39-117); Aspartate Amino Transferase 17 U/L (5-31); Bilirubin Total 0.3 mg/dL (0.0-1.0); Calcium 7.8 mg/dL (8.4-10.2); Cholesterol 136 mg/dL (<200); Glucose Random 103 mg/dL (60-115); HDL Cholesterol 41 mg/dL (>40); LDL Cholesterol Calculated 83 mg/dL (<100); Magnesium 1.5 mg/dL (1.6-2.6); Phosphorus 3.1 mg/dL (2.7-4.5); Total Protein 5.6 g/dL (6.5-8.0); Triglycerides 62 mg/dL (<150)
[2025-01-21 06:49] LABS: Thyroid Stimulating Hormone 0.26 uIU/mL (0.32-4.0)
[2025-01-21] MEDS: Albuterol/Iprat 2.5/0.5MG 3 ML AMPUL.NEB INHALE ×3 (07:48→19:38)
--- NOTE | 2025-01-21 10:01 | PHA.MEDREC ---
Pharmacy Consult ? Medication Reconciliation Pharmacy has completed the medication reconciliation. Spoke to pt to confirm meds. Per pt, no longer takes flecainide and eliquis.
--- NOTE | 2025-01-21 11:27 | PC.NURSE ---
Patient stopped taking eliquis for afib because she could not afford the cost of it. was prescribed doxycycline bid 100mg x 10 days at urgent care last thursday and was taking as prescribed until she came to the hospital. provider aware
[2025-01-21] MEDS: Doxycycline Monohydrate 100 MG CAPSULE PO ×2 (11:44→21:09)
[2025-01-21] MEDS: Cyanocobalamin (Vitamin B-12) 1,000 MCG TABLET 1000 MCG PO (11:44)
[2025-01-21] MEDS: Cholecalciferol (Vitamin D3) 25 MCG TABLET 50 MCG PO (11:44)
[2025-01-21] MEDS: lisinopriL 40 MG TABLET PO (11:44)
[2025-01-21] MEDS: atenoloL 25 MG TABLET 37.5 MG PO (11:45)
[2025-01-21 11:53] LABS: INTERNATIONAL NORM RATIO 1.3 (0.9-1.1); Prothrombin Time 14.8 SEC (10.9-12.4)
--- NOTE | 2025-01-21 11:55 | MHC.CM.PN ---
Addendum entered by Nahomi Benson 01/21/25 15:05: HOSPITALIST SENT A PRESCRIPTION OF DABIGATRAN TO PTS PHARMACY CM CALLED [facility] AND SPOKE TO THE PHARMACIST WHO INDICATED THE COST WOULD BE $97 PER MONTH CM MET WITH PT WHO STATED THAT IS NOT AFFORDABLE, ESPECIALLY SINCE SHE HAS BEEN OUT OF WORK DUE TO ILLNESS Original Note: PT REPORTS SHE LIVES ALONE AND IS INDEPENDENT WITH CARE SHE HAS NO DME AND NO SERVICES SHE HAS A HCP, COPY REQUESTED PCP: MANNIE FLETCHER IMM DELIVERED DCP: HOME NO SERVICES VIA PRIVATE TRANSPORT PT REPORTS SHE HAS BEEN ON ELIQUIS BUT CAN NO LONGER AFFORD IT SHE SAYS SHE DID CALL HER INSURANCE COMPANY FOR ASSISTANCE BUT THEY WERE UNABLE TO HELP PT WILL DISCUSS OTHER MED OPTIONS WITH HOSPITALIST AND HAS AN APPT WITH HER [employer] ON THURSDAY
[2025-01-21] MEDS: Primidone 50 MG TABLET PO ×3 (12:29→21:09)
[2025-01-21] MEDS: Escitalopram Oxalate 20 MG TABLET PO (12:29)
[2025-01-21] MEDS: Pravastatin Sodium 20 MG TABLET PO (12:30)
[2025-01-21 13:26] LABS: Adenovirus PCR Not Detected (Not Detect.); Bordetella parapertussis PCR Not Detected (Not Detect.); Bordetella pertussis PCR Not Detected (Not Detect.); Chlamydia pneumoniae PCR Not Detected (Not Detect.); Coronavirus 229E PCR Not Detected (Not Detect.); Coronavirus HKU1 PCR Not Detected (Not Detect.); Coronavirus NL63 PCR Not Detected (Not Detect.); Coronavirus OC43 PCR Not Detected (Not Detect.); Human metapneumovirus PCR Not Detected (Not Detect.); Influenza A PCR Not Detected (Not Detect.); Influenza B PCR Not Detected (Not Detect.); Mycoplasma pneumoniae PCR Not Detected (Not Detect.); Parainfluenza 1 PCR Not Detected (Not Detect.); Parainfluenza 2 PCR Not Detected (Not Detect.); Parainfluenza 3 PCR Not Detected (Not Detect.); Parainfluenza 4 PCR Not Detected (Not Detect.); RSV PCR Not Detected (Not Detect.); Rhino/Enterovirus PCR Not Detected (Not Detect.)
[2025-01-21 13:44] LABS: SARS-CoV-2 PCR Not Detected (Not Detect.)
--- NOTE | 2025-01-21 14:06 | PM.EVENT ---
Event Note Date of Service: 01/22/25 Event Note: Patient seen and examined by hospitalist service this morning, seen and examined again: Seem feeling somewhat better Physical exam and assessment and plan coordinated in h&P note, Agree with the plan in addition: hypertensive urgency,electrolyte imbalance,copd excerebation,smoker,hx of copd and paf (Self stopped eliquis): Continue blood pressure medications, COPD management, Eliquis was changed to warfarin since patient insurance issues. Time Spent With Patient Time: Total time managing care of this patient today ____ minutes.
[2025-01-21] MEDS: Magnesium Sulfate/D5W 1 GM/100 ML PIGGYBACK IV (14:55)
[2025-01-21 15:06] LABS: Free T4 (Free Thyroxine) 1.06 ng/dL (0.71-1.85)
[2025-01-21] MEDS: Magnesium Oxide 400 MG TABLET PO (18:16)
[2025-01-21] MEDS: Warfarin Sodium 5 MG TABLET PO (18:16)
[2025-01-22] VITALS (16 sets, daily range): BP systolic 137–173; BP diastolic 71–87; PULSE 52–91; RESP 13–19; TEMP 36–37.1; O2SAT 93–95; BMI 21.6
[2025-01-22] MEDS: 0.9 % Sodium Chloride Flush 3 ML SYRINGE IVFLUSH ×4 (00:47→20:49)
[2025-01-22 06:27] LABS: INTERNATIONAL NORM RATIO 1.3 (0.9-1.1); Prothrombin Time 14.7 SEC (10.9-12.4)
[2025-01-22 07:09] LABS: Anion Gap 10 (12-20); Blood Urea Nitrogen 17 mg/dL (9-16); Carbon Dioxide 23 mmol/L (22-29); Chloride 106 mmol/L (96-108); Creatinine Clr Calc Pharmacy 72.3; Estimated Glomerular Filt Rate > 60; Glucose Random 80 mg/dL (60-115); Magnesium 1.7 mg/dL (1.6-2.6); Potassium 4.3 mmol/L (3.3-5.1); Sodium 135 mmol/L (135-145)
[2025-01-22] MEDS: Albuterol/Iprat 2.5/0.5MG 3 ML AMPUL.NEB INHALE ×3 (08:26→20:17)
[2025-01-22] MEDS: Escitalopram Oxalate 20 MG TABLET PO (08:56)
[2025-01-22] MEDS: Primidone 50 MG TABLET PO ×3 (08:56→20:49)
[2025-01-22] MEDS: Cyanocobalamin (Vitamin B-12) 1,000 MCG TABLET 1000 MCG PO (08:56)
[2025-01-22] MEDS: Pravastatin Sodium 20 MG TABLET PO (08:56)
[2025-01-22] MEDS: Doxycycline Monohydrate 100 MG CAPSULE PO ×2 (08:56→20:49)
[2025-01-22] MEDS: Magnesium Oxide 400 MG TABLET PO ×2 (08:56→17:28)
[2025-01-22] MEDS: Cholecalciferol (Vitamin D3) 25 MCG TABLET 50 MCG PO (08:56)
[2025-01-22] MEDS: atenoloL 25 MG TABLET 37.5 MG PO (08:57)
[2025-01-22] MEDS: lisinopriL 40 MG TABLET PO (08:57)
--- NOTE | 2025-01-22 13:11 | P.PNIM_ITS ---
Subjective Subjective Date of Service: 01/22/25 Interval History: COPD exacerbation, hypomagnesemia Review of Systems Shortness of breaths somewhat improving but short of breath with minimal exertion, generalized weak Physical Exam 2 Vital Signs: Vital Signs: Last Vital Signs Temp 98.2 F 01/22/25 11:20 Pulse 52 01/22/25 11:20 Resp 18 01/22/25 11:20 BP 149/79 H 01/22/25 11:20 Pulse Ox 94 01/22/25 11:20 O2 Del Method Room Air 01/22/25 11:20 O2 Flow Rate 2 01/21/25 04:00 BMI result Body Mass Index 21.6 Appearance: Alert.? Oriented X3.? cvs: rrr, [id number]. res:air entry seems abd: no rebound or guarding ,nt, bs present. ext pulses present , no cyanosis . neuro: axo3 , nonfocal. Objective Data Active Medications Acetaminophen (Acetaminophen 325 Mg Tablet) 650 mg PO Q6H PRN PRN Reason: Pain, Mild 1-3,fever,headache Albuterol Sulfate (Albuterol Sulfate (0.083%) 2.5 Mg/3 Ml Vial.Neb) 2.5 mg INHALE Q4H PRN PRN Reason: Shortness of Breath/Wheezing Albuterol/Ipratropium (Albuterol/Iprat 2.5/0.5mg 3 Ml Ampul.Neb) 3 ml INHALE Q6H [facility] Last Admin: 01/22/25 08:26 Dose: 3 ml Documented By: KELLY Atenolol (Atenolol 25 Mg Tablet) 37.5 mg PO DAILY [facility]; Protocol Last Admin: 01/22/25 08:57 Dose: 37.5 mg Documented By: SPEEDY Calcium Carbonate (Calcium Carbonate 750 Mg Tab.Chew) 750 mg PO Q4H PRN PRN Reason: Heartburn Cyanocobalamin (Cyanocobalamin (Vitamin B-12) 1,000 Mcg Tablet) 1,000 mcg PO DAILY [facility] Last Admin: 01/22/25 08:56 Dose: 1,000 mcg Documented By: SPEEDY Doxycycline Monohydrate (Doxycycline Monohydrate 100 Mg Capsule) 100 mg PO BID [facility] Last Admin: 01/22/25 08:56 Dose: 100 mg Documented By: SPEEDY Escitalopram Oxalate (Escitalopram Oxalate 20 Mg Tablet) 20 mg PO DAILY [facility] Last Admin: 01/22/25 08:56 Dose: 20 mg Documented By: SPEEDY Fluticasone/Vilanterol (Fluticasone/Vilanterol 100/25 Blst.W.Dev) 1 puff INHALE RDAILY [facility] Last Admin: 01/22/25 08:56 Dose: Not Given Documented By: KELLY Non-Admin Reason: med unavailable pharmacy called Lisinopril (Lisinopril 40 Mg Tablet) 40 mg PO DAILY [facility]; Protocol Last Admin: 01/22/25 08:57 Dose: 40 mg Documented By: SPEEDY Magnesium Hydroxide (Milk Of Magnesia 30 Ml Oral.Susp) 30 ml PO DAILY PRN PRN Reason: Constipation Magnesium Oxide (Magnesium Oxide 400 Mg Tablet) 400 mg PO BIDPC [facility] Last Admin: 01/22/25 08:56 Dose: 400 mg Documented By: SPEEDY Melatonin (Melatonin 3 Mg Tablet) 6 mg PO BEDTIME PRN PRN Reason: Insomnia Nicotine Polacrilex (Nicotine Polacrilex Lozenge 2 Mg Lozenge) 2 mg BUCCAL Q2H PRN PRN Reason: Nicotine Cravings Ondansetron HCl (Ondansetron Hcl 4 Mg/2 Ml Vial) 4 mg IVPUSH Q8H PRN PRN Reason: Nausea and Vomiting Oxycodone HCl (Oxycodone Hcl Immed Release 5 Mg Tablet) 5 mg PO Q6H PRN PRN Reason: Pain, Severe (Pain Scale 7-10) Pravastatin Sodium (Pravastatin Sodium 20 Mg Tablet) 20 mg PO DAILY [facility] Last Admin: 01/22/25 08:56 Dose: 20 mg Documented By: SPEEDY Primidone (Primidone 50 Mg Tablet) 50 mg PO TID [facility] Last Admin: 01/22/25 08:56 Dose: 50 mg Documented By: SPEEDY Senna (Sennosides 8.6 Mg Tablet) 17.2 mg PO BEDTIME PRN PRN Reason: Constipation Sodium Chloride (0.9 % Sodium Chloride Flush 3 Ml Syringe) 3 ml IVFLUSH QSHIFT [facility] Last Admin: 01/22/25 08:55 Dose: 3 ml Documented By: SPEEDY Vitamin D (Cholecalciferol (Vitamin D3) 25 Mcg Tablet) 50 mcg PO DAILY [facility] Last Admin: 01/22/25 08:56 Dose: 50 mcg Documented By: SPEEDY Warfarin Sodium (Warfarin Sodium 5 Mg Tablet) 5 mg PO DAILY@1800 [facility] Last Admin: 01/21/25 18:16 Dose: 5 mg Documented By: ZORAIDA Labs 01/21/25 05:12 01/22/25 06:09 Labs: Laboratory Results - last 24 hr 01/21/25 01/21/25 01/22/25 05:12 11:48 06:09 Hold Purple Top SEE NOTE PT 14.7 H INR 1.3 H Anion Gap 10 L Estim Creat Clear Calc 72.3 Estimated GFR > 60 Random Glucose 80 Calcium 9.0 D Magnesium 1.7 Free T4 1.06 Hold Green Top See Note Respiratory Panel Mendes See Note Adenovirus (Rapid PCR) Not Detected B.pert (TEM-PCR) Not Detected B.parapertussis DNA PCR Not Detected C. pneumoniae DNA (PCR) Not Detected Coronavirus OC43 (PCR) Not Detected Coronavirus HKU1 (PCR) Not Detected Coronavirus 229E (PCR) Not Detected Coronavirus NL63 (PCR) Not Detected Human Metapneumovir PCR Not Detected Influenza A (RT-PCR) Not Detected Influenza B (RT-PCR) Not Detected M. pneumoniae (PCR) Not Detected Parainfluenza 1 (PCR) Not Detected Parainfluenza 2 (PCR) Not Detected Parainfluenza 3 (PCR) Not Detected Parainfluenza 4 (PCR) Not Detected RSV (PCR) Not Detected Entero/Rhino (PCR) Not Detected SARS-CoV-2 RNA (RT-PCR) Not Detected Microbiology Microbiology Results: Microbiology 01/20/25 19:58 Blood Culture - Preliminary Blood - Venous No growth after 24 hours. 01/20/25 19:58 Blood Culture - Preliminary Blood - Venous No growth after 24 hours. Assessment and Plan (1) Electrolyte abnormality: Status: Acute (2) Generalized weakness: Status: Acute (3) COPD (chronic obstructive pulmonary disease): Status: Acute Assessment and Plan: 69-year-old female with a history of hypertension though not on treatment, COPD and who unfortunately continues to smoke here with: acute COPD exacerbation-likely with mild exacerbation Shortness of breath with minimal exertion Feels generalized weak Continue nebs, steroids, out of bed, incentive spirometry, chest physiotherapy PT evaluation electrolyte imbalance -noted with mild hypomagnesemia and hyponatremia replted and improved smoker -still unmotivated to quit -declines an RT -encouraged smoking cessation diarrhae: added cdiff and gip DVT: SC Lovenox CODE STATUS: Full code Ongoing need: generalized weakness and COPD exacerbation-respiratory status is not optimal yet, need nebs, steroids, PT evaluation and diarrhea workup. Quality Stroke Does the patient have a stroke diagnosis?: No VTE Prior VTE?: No VTE Risk Level:: Medical - moderate - high VTE Device Contraindication: N/A - Device Ordered VTE Drug Contraindication: N/A - Med Ordered
[2025-01-22] MEDS: Warfarin Sodium 5 MG TABLET PO (17:28)
[2025-01-22 20:15] LABS: CDiff Gene PCR NEGATIVE (Negative)
[2025-01-23] VITALS (9 sets, daily range): BP systolic 129–166; BP diastolic 69–89; PULSE 54–79; RESP 16–18; TEMP 36–37; O2SAT 93–97
[2025-01-23 06:42] LABS: INTERNATIONAL NORM RATIO 1.6 (0.9-1.1); Prothrombin Time 18.6 SEC (10.9-12.4)
[2025-01-23] MEDS: Albuterol/Iprat 2.5/0.5MG 3 ML AMPUL.NEB INHALE (07:48)
[2025-01-23] MEDS: Fluticasone/Vilanterol 100/25 BLST.W.DEV 1 PUFF INHALE (08:05)
[2025-01-23] MEDS: Primidone 50 MG TABLET PO (08:26)
[2025-01-23] MEDS: Pravastatin Sodium 20 MG TABLET PO (08:26)
[2025-01-23] MEDS: lisinopriL 40 MG TABLET PO (08:26)
[2025-01-23] MEDS: Magnesium Oxide 400 MG TABLET PO (08:26)
[2025-01-23] MEDS: Escitalopram Oxalate 20 MG TABLET PO (08:26)
[2025-01-23] MEDS: Doxycycline Monohydrate 100 MG CAPSULE PO (08:26)
[2025-01-23] MEDS: Cholecalciferol (Vitamin D3) 25 MCG TABLET 50 MCG PO (08:26)
[2025-01-23] MEDS: atenoloL 25 MG TABLET 37.5 MG PO (08:26)
[2025-01-23] MEDS: Cyanocobalamin (Vitamin B-12) 1,000 MCG TABLET 1000 MCG PO (08:26)
[2025-01-23] MEDS: 0.9 % Sodium Chloride Flush 3 ML SYRINGE IVFLUSH (08:28)
[2025-01-23] MEDS: guaiFENesin 200 MG/10 ML 10 ML LIQUID PO (10:35)
[2025-01-23 11:00] LABS: Adenovirus F 40/41 Not Detected (Not Detect.); Astrovirus Not Detected (Not Detect.); Campylobacter Not Detected (Not Detect.); Cryptosporidium Not Detected (Not Detect.); Cyclospora cayetanensis Not Detected (Not Detect.); E. coli EAEC Not Detected (Not Detect.); E. coli EPEC Not Detected (Not Detect.); E. coli ETEC Not Detected (Not Detect.); E. coli STEC Not Detected (Not Detect.); Entamoeba histolytica Not Detected (Not Detect.); Giardia lamblia Not Detected (Not Detect.); Norovirus GI/GII Not Detected (Not Detect.); Plesiomonas shigelloides Not Detected (Not Detect.); Rotavirus A Not Detected (Not Detect.); Salmonella Not Detected (Not Detect.); Sapovirus Not Detected (Not Detect.); Shigella sp./EIEC Not Detected (Not Detect.); Vibrio Not Detected (Not Detect.); Vibrio Cholerae Not Detected (Not Detect.); Yersinia enterocolitica Not Detected (Not Detect.)
[2025-01-23] MEDS: predniSONE 20 MG TABLET PO (11:29)
--- NOTE | 2025-01-23 11:29 | P.DS_ITS ---
DS: Providers Provider Date of Service: 01/23/25 Date of admission: 01/21/25 02:49 Date of discharge: 01/23/25 Primary care physician: Max George MD Attending physician on discharge: Nithya Guardado Discharging clinician: Nithya Guardado DS: Diagnosis Discharge Diagnosis (1) Electrolyte abnormality: Status: Acute (2) Generalized weakness: Status: Acute (3) COPD (chronic obstructive pulmonary disease): Status: Acute DS: Summary Hospital Course Hospital Course: HPI:69-year-old female with history of COPD, hypertension, and ongoing tobacco abuse who presents to the emergency room from home complaining of feeling generally weak with flu-like symptoms for the last 1 week. She describes generalized body aches, headaches, decreased appetite, dry cough and nasal congestion over the past one week. She has not been able to go to work (at [employer]) as she has been very weak. Today she was so weak that she could not even get off the couch and she also had a severe headache so she decided to come in for evaluation. She is long time smoker who has underlying COPD but did not endorse any associated shortness of breath or chest pain. Initial blood work done in the emergency department was significant for mild hyponatremia with a serum sodium of 131 mmol/L and hypomagnesemia at 1.3 for which she received IV magnesium sulfate replacement. She was also noted to be significantly hypertensive with a blood pressure of 219/87 mmHg which was treated with intravenous and oral labetalol with improvement. There was concern for COPD exacerbation so she received DuoNeb updrafts, steroids and antibiotics but when they tried to walk her, her oxygen saturation dropped to 88% hence the decision to admit her. She otherwise has no other complaints. Hospital course: 69-year-old female with a history of hypertension though not on treatment, COPD and who unfortunately continues to smoke here with: acute COPD exacerbation-likely with mild exacerbation: Given nebs, added steroids and seems to improved: Patient will be going p.o. prednisone 3 more days electrolyte imbalance: mild hypomagnesemia-repleted and resolved hyponatremia: Hydrated and improved smoker: Advised to abstain from smoking, nicotine gum ordered. diarrhae: Improved spontaneously cdiff negative and gi panel pending but patient is asymptomatic so going home, no diarrhea. PAF: Patient is noncompliant with Eliquis secondary to insurance issues, started on warfarin given 1 week supply she is saying that she will seeing her die set up worker this week and decide further anticoagulation type at time. Currently INR is 1.6. Patient will be going home with warfarin 5 mg daily. Please check INR in 2-3 days outpatient. Patient is to follow-up with PCP /cardiology outpatient. p Above management discussed with the patient in detail length she understand and in agreement with the above plan. Time spent 40 minute. Time Attestation Discharge Coordination Time (in mins): 40 min Quality: Safe Use of Opioids Does Pt have an Active Cancer Diagnosis on the Problem List?: No Quality: Stroke Does the patient have a stroke diagnosis?: No Physical Exam Vital Signs: Vital Signs: Last Vital Signs Temp 97.7 F 01/23/25 07:35 Pulse 79 01/23/25 08:25 Resp 18 01/23/25 07:50 BP 135/77 01/23/25 08:25 Pulse Ox 94 01/23/25 07:35 O2 Del Method Room Air 01/23/25 07:35 O2 Flow Rate 2 01/21/25 04:00 BMI result Body Mass Index 21.6 Appearance: Alert.? Oriented X3.? cvs: rrr, [id number]. res: clear to auscultation ,no rhonchii or wheezing abd: no rebound or guarding ,nt, bs present. ext pulses present , no cyanosis d. neuro: axo3 , nonfocal. DS: Data Data Completed and Pending Labs on day of discharge: Laboratory Results - last 24 hr 01/22/25 01/23/25 19:17 06:24 PT 18.6 H D INR 1.6 H C. difficile Tox B Gene NEGATIVE Preliminary micro results at discharge 01/20/25 19:58 Blood Culture - Preliminary Blood - Venous No growth after 48 hours. 01/20/25 19:58 Blood Culture - Preliminary Blood - Venous No growth after 48 hours. Imaging Chest x-ray: Radiologist's impression: ITS Impressions Head CT 01/20/25 14:00 IMPRESSION: Unremarkable unenhanced head CT. Electronically signed by: Nick Guillory MD 01/20/2025 02:29 PM EST Discharge Plan Discharge Anticipated Discharge Date/Time: 01/23/25 11:14 Patient Disposition: Home, Self-Care Discharge Diagnosis: copd execerebation, hx of paf Referrals: Max George MD [Primary Care Provider] - 1 Week Discharge Medications: New nicotine (polacrilex) 2 mg Lozenge 2 mg buccal Q2H PRN (Reason: Nicotine Cravings) Qty: 72 0RF guaifenesin 100 mg/5 mL Liquid 100 mg PO Q4H PRN (Reason: Cough) Qty: 473 0RF warfarin [Jantoven] 5 mg Tablet 5 mg PO DAILY@1800 Qty: 7 0RF prednisone 20 mg tablet 20 mg PO DAILY Qty: 3 0RF magnesium oxide 400 mg (241.3 mg magnesium) Tablet 400 mg PO BIDPC Qty: 10 0RF Continued primidone 50 mg tablet 50 mg PO TID fluticasone propion-salmeterol 250-50 mcg/dose blister with device 1 ea inhalation BID citalopram 40 mg tablet 40 mg PO DAILY atenolol 25 mg tablet 37.5 mg PO DAILY cyanocobalamin (vitamin B-12) 1,000 mcg tablet 1,000 mcg PO DAILY pravastatin 20 mg tablet 20 mg PO DAILY albuterol sulfate 90 mcg/actuation HFA aerosol inhaler 2 puff INHALATION Q6H PRN (Reason: wheezing) lisinopril 40 mg tablet 40 mg PO DAILY ondansetron 4 mg tablet,disintegrating 4 mg PO Q8H PRN (Reason: Nausea And Vomiting) doxycycline hyclate 100 mg tablet 100 mg PO BID Rx Instructions: END DATE: 01/23/25 cholecalciferol (vitamin D3) 50 mcg (2,000 unit) capsule 50 mcg PO DAILY Discharge Orders: Discharge Order (Routine); Ordered 01/23/25 Ordered By: Nithya Guardado Diet: Advance to usual diet Activity on Discharge: As tolerated Stand Alone Forms: Patient Portal Discharge page Print Language: Singaporean Other Ambulatory Orders: Basic Metabolic Panel (Routine) Timeframe: 1 Week Facility: [facility] - Location: Laboratory Ordered By: Nithya Guardado Magnesium (Routine) Timeframe: 1 Week Facility: [facility] - Location: Laboratory Ordered By: Nithya Guardado Prothrombin Time INR (Routine) Timeframe: 2 Days Facility: [facility] - Location: Laboratory Ordered By: Nithya Guardado Care Plan Goals: 69-year-old female with a history of hypertension though not on treatment, COPD and who unfortunately continues to smoke here with: acute COPD exacerbation-likely with mild exacerbation: Given nebs, added steroids and seems to improved:Patient will be going p.o. prednisone 3 more days electrolyte imbalance: mild hypomagnesemia-repleted and resolved hyponatremia: Hydrated and improved htn -bp flactuating : will continue her home meds atenolol andlisinopril- monitor blood pressure outpatient and further management outpatient. smoker: Advised to abstain from smoking, nicotine gum ordered. diarrhae: Improved spontaneously cdiff negative and gi panel pending but patient is asymptomatic so going home, no diarrhea. PAF: Patient is noncompliant with Eliquis secondary to insurance issues, [facility] on warfarin given 1 week supply she is saying that she will seeing her die set up worker this week and decide further anticoagulation type at time. Currently INR is 1.6. Patient will be going home with warfarin 5 mg daily. Please check INR in 2-3 days outpatient. Patient is to follow-up with pcp and cardiology outpatient. Health Concerns: As above. Plan of Treatment: As above. Assessment: As above. Discharge Date/Time: 01/23/25 12:48
--- NOTE | 2025-01-23 11:45 | MHC.CM.PN ---
PT DCD HOME SELF CARE
== END 2025-01-23 12:48 | disposition home or self-care (01) | DRG 191 ==
LOC: HO.ED 19:33 → HO.EDOVER 01-21 02:56 → HO.S3 01-22 07:45
PROVIDERS: Physician Assistant Medical; Admitting Provider Internal Medicine; Emergency Provider Emergency Medicine Emergency Medical Services; PCP Internal Medicine; Visit Provider Internal Medicine
DX: J44.1 Chronic obstructive pulmonary disease with (acute) exacerbation (principal); E87.1 Hypo-osmolality and hyponatremia; I16.0 Hypertensive urgency; I48.0 Paroxysmal atrial fibrillation; T45.516A Underdosing of anticoagulants, initial encounter; E83.42 Hypomagnesemia; R19.7 Diarrhea, unspecified; F17.210 Nicotine dependence, cigarettes, uncomplicated; I10 Essential (primary) hypertension; Z20.822 Contact with and (suspected) exposure to COVID-19; Z71.6 Tobacco abuse counseling; Z79.51 Long term (current) use of inhaled steroids; Z79.899 Other long term (current) drug therapy
CPT/HCPCS: 0241U; 36415; 70450; 71045; 80048; 80053; 80061; 83605; 83735; 84100; 84439; 84443; 84484; 85025; 85027; 85610; 87040; 87493; 87507; 87633; 93005; 94640; 97161; 99221; 99285; J0456; J0696; J0737; J1200; J1885; J1920; J2919; J3475

== ENCOUNTER → 2025-01-20 12:36 | Outpatient (BNV) | payer MEDICAID, SELFPAY | PROVIDERS: PCP Internal Medicine; Visit Provider Radiology Diagnostic Radiology | DX: I10 Essential (primary) hypertension (principal); R51.9 Headache, unspecified; R06.02 Shortness of breath | CPT/HCPCS: 70450; 71045 ==

== ENCOUNTER → 2025-01-20 12:39 | Outpatient (BNV) | payer MEDICAID, SELFPAY | PROVIDERS: PCP Internal Medicine; Visit Provider Internal Medicine Cardiovascular Disease | DX: I44.4 Left anterior fascicular block (principal); R94.31 Abnormal electrocardiogram [ECG] [EKG]; I10 Essential (primary) hypertension | CPT/HCPCS: 93010 ==

== ENCOUNTER → 2025-01-21 02:49 | Outpatient (BNV) | payer MEDICARE, SELFPAY | PROVIDERS: Admitting Provider Internal Medicine; Emergency Provider Emergency Medicine Emergency Medical Services; PCP Internal Medicine; Visit Provider Internal Medicine | DX: I16.0 Hypertensive urgency (principal); R53.1 Weakness; E87.8 Other disorders of electrolyte and fluid balance, not elsewhere classified; J44.1 Chronic obstructive pulmonary disease with (acute) exacerbation; F17.200 Nicotine dependence, unspecified, uncomplicated | CPT/HCPCS: 99223; 99231; 99499 ==

== ENCOUNTER 2025-03-19 09:30 | Emergency (ER) | payer MEDICARE, SELFPAY ==
--- NOTE | ~2025-03-19 | XR_ITS ---
CLINICAL HISTORY: pain 3 views lumbar spine Comparison: None Findings: Normal alignment. No acute fractures or dislocation. Multilevel disc space narrowing and endplate osteophyte formation, as well as facet hypertrophy. IMPRESSION: No acute findings. This document has been electronically signed by: Nayeil Regalado MD on 03/19/2025 13:50:42
--- NOTE | ~2025-03-19 | XR_ITS ---
CLINICAL HISTORY: pain 3 view, pelvis and left hip Comparison: None Findings: The bones are intact. No significant arthritic change. The soft tissues are unremarkable. IMPRESSION: No acute findings. This document has been electronically signed by: Nayeli Regalado MD on 03/19/2025 13:51:13
[2025-03-19 09:54] VITALS: BP 134/47; PULSE 54; RESP 18; TEMP 36.4; O2SAT 95; BMI 22.3
--- NOTE | 2025-03-19 11:54 | ED_ITS ---
HPI - General Adult General Chief complaint: General Medical Stated complaint: hip pain Time Seen by Provider: 03/19/25 14:28 Source: patient and RN notes reviewed Mode of arrival: ambulatory Limitations: no limitations History of Present Illness ED Provider: Kassandra Garces PA-C HPI narrative: This is a [id number]-female who presents to the ER with complaints of ongoing atraumatic left hip pain x 4 weeks. Patient reports that she has had ongoing left hip pain without any known injury. She states that the pain starts in her left hip and radiates into her left thigh. She denies any saddle anesthesia, urinary or bowel retention or incontinence. She states that she works at the [employer] and spends prolonged periods of time standing. She states that she went to an urgent care where she had x-rays ordered, was told that everything looked okay, and was prescribed prednisone and oxycodone. She states that the oxycodone helped with her pain significantly however states that the pain has not fully resolved even after course of prednisone. She called in to her primary care physician's office twice, and they instructed her to give it more time , and the 2nd time they told her to go to the emergency room if her pain has not fully resolved. She denies any fevers, chills, chest pain, shortness of breath, abdominal pain, nausea, vomiting or diarrhea. No other complaints or concerns at this time. MD complaint: Left hip pain Onset (ago): week(s) Radiation: non-radiation Pain Consistency: constant Relieving factors: immobilization Exacerbating factors: movement Associated symptoms: denies other symptoms Treatments prior to arrival: none Related Data Home Medications ?Medication ?Instructions ?Recorded ?Confirmed albuterol sulfate 90 mcg/actuation 2 puff inhalation Q6H PRN wheezing 01/21/25 01/21/25 aerosol inhaler atenolol 25 mg tablet 37.5 mg PO DAILY 01/21/25 01/21/25 cholecalciferol (vitamin D3) 50 50 mcg PO DAILY 01/21/25 01/21/25 mcg (2,000 unit) capsule citalopram 40 mg tablet 40 mg PO DAILY 01/21/25 01/21/25 cyanocobalamin (vitamin B-12) 1,000 mcg PO DAILY 01/21/25 01/21/25 1,000 mcg tablet doxycycline hyclate 100 mg tablet 100 mg PO BID 01/21/25 01/21/25 fluticasone 250 mcg-salmeterol 50 1 ea inhalation BID 01/21/25 01/21/25 mcg/dose blistr powdr for inhalation lisinopril 40 mg tablet 40 mg PO DAILY 01/21/25 01/21/25 ondansetron 4 mg disintegrating 4 mg PO Q8H PRN Nausea And Vomiting 01/21/25 01/21/25 tablet pravastatin 20 mg tablet 20 mg PO DAILY 01/21/25 01/21/25 primidone 50 mg tablet 50 mg PO TID 01/21/25 01/21/25 Previous Rx's ?Medication ?Instructions ?Recorded guaifenesin 100 mg/5 mL oral liquid 100 mg (5 mL) PO Q4H PRN Cough 01/23/25 #473 mL magnesium oxide 400 mg (241.3 mg 400 mg PO BIDPC #10 tabs 01/23/25 magnesium) tablet nicotine (polacrilex) 2 mg buccal 2 mg buccal Q2H PRN Nicotine 01/23/25 lozenge Cravings #72 ea prednisone 20 mg tablet 20 mg PO DAILY #3 tabs 01/23/25 warfarin 5 mg tablet (Jantoven) 5 mg PO DAILY@1800 #7 tabs 01/23/25 acetaminophen 500 mg tablet 1,000 mg (2 x 500 mg) PO QID PRN 03/19/25 (Tylenol Extra Strength) pain #30 tabs lidocaine 5 % topical patch 1 patch topical DAILY #30 ea 03/19/25 oxycodone 5 mg capsule 5 mg PO Q6H PRN severe pain #7 caps 03/19/25 oxycodone 5 mg tablet 5 mg PO Q6H PRN severe pain (scale 03/19/25 score 7-10) #7 tabs oxycodone 5 mg tablet 5 mg PO Q8H PRN pain #7 tabs 03/21/25 Allergies Allergy/AdvReac Type Severity Reaction Status Date / Time No Known Allergies Allergy Verified 03/21/25 08:31 Review of Systems Review of Systems: Yes all other systems are reviewed and are negative Constitutional: Constitutional: Reports as per [facility] Past Medical History Medical History COPD (chronic obstructive pulmonary disease) Smoker unmotivated to quit Essential hypertension Social History Social History Household Members: None Housing: Apartment Do you presently have visiting nurse or other home services: No Patient Tobacco Use Status: Current everyday Tobacco user Tobacco use type: Cigarette Cigarette Packs Per Day: 0.5 Cigarettes Per Day: 10.0 Years Smoked: 30 Substance Use Type: Marijuana service: No Physical Exam ED Vital Signs: Vital Signs - 24 hr 03/19/25 09:54 03/19/25 11:56 Temperature 97.5 F 98.6 F Pulse Rate 54 60 Respiratory Rate 18 18 Blood Pressure 134/47 L 169/70 H Pulse Oximetry 95 94 Oxygen Delivery Method Room Air Room Air BMI result Body Mass Index 22.3 Const General: cooperative, comfortable and no acute distress Orientation/consciousness: patient oriented x3 Limitations: no limitations HENMT Head: Yes normal to inspection, Yes normocephalic and Yes atraumatic Ears: hearing grossly normal bilaterally General nose exam: Normal external nose present Face and sinus: Yes normal facial exam Mouth: Normal oral and palatal mucosa present, oropharynx normal and moist mucous membranes Throat: Yes posterior oropharynx normal Eyes General: appearance normal, both eyes and all related structures Eyelids: Yes eyelids normal Conjunctivae: conjunctivae normal Sclerae: sclerae normal Pupils: Equal, round and reactive pupils present EOM: EOMs intact bilaterally Neck Neck: Yes normal visual inspection, Yes full ROM and Yes no lymphadenopathy Lymphatic: no lymphadenopathy noted Chest Chest palpation & inspection: normal inspection of the chest Resp Effort & Inspection: normal respiratory effort and able to speak in complete sentences Auscultation: clear to auscultation bilaterally, no crackles, no rales, no rhonchi and no wheezes Cardio Rate: regular rate Rhythm: regular rhythm Heart sounds: S1 normal heart sound present and S2 normal heart sound present GI Inspection: Yes normal to inspection Back/Spine/Pelvis Other: left posterior hip with mild tenderness palpation extending into the SI joint, and into the lateral hip. No bony step-off or deformity. No midline spine tenderness. She is ambulatory with steady gait. Strength 5/5 in lower extremities. Skin General skin exam: no rashes or lesions noted Trauma: no lacerations or abrasions Wounds: no wounds Neuro General: patient oriented x3 and moves all extremities Cranial nerves: Yes Equal, round and reactive pupils present Extrem General: Yes normal to inspection Right upper extremity: normal to inspection Left upper extremity: normal to inspection Right lower extremity: normal to inspection Left lower extremity: normal to inspection Medical Decision Making Medical Decision Making MDM Narrative: This is a [id number]-female who presents to the ER with complaints of ongoing atraumatic left hip pain x 4 weeks. On arrival, patient ambulatory with steady gait. She does have tenderness palpation along the left SI joint. X-rays were performed of the lumbar spine and hip revealing no acute findings, there are multilevel disc space narrowing and endplate osteophyte formations as well as facet hypertrophy. I discussed this finding with patient. She states that oxycodone provided her with good relief therefore given small course. I stressed the importance of only taking this for severe pain only, and that this can cause drowsiness and not to drink or drive while taking this medication. She understands and agrees with plan. I encouraged patient to take Tylenol for moderate pain. Given strict return precautions. She understands agrees with plan, advised follow-up with PCP. Patient stable for discharge. Differential Diagnosis Differential Diagnoses: The differential diagnosis associated with the presentation includes Disc herniation, sciatica, lumbar radiculopathy, lumbago Radiology Impression Discussion of test interpretation with radiology: I have reviewed the radiologist's reading. Radiologist Impression: Findings: The bones are intact. No significant arthritic change. The soft tissues are unremarkable. IMPRESSION: No acute findings. This document has been electronically signed by: Nayeli Regalado MD on 03/19/2025 13:51:13 Dictated By: Nayeli Regalado MD Findings: Normal alignment. No acute fractures or dislocation. Multilevel disc space narrowing and endplate osteophyte formation, as well as facet hypertrophy. IMPRESSION: No acute findings. This document has been electronically signed by: Nayeli Regalado MD on 03/19/2025 13:50:42 Dictated By: Nayeli Regalado MD Discharge Plan Discharge Clinical Impression: Back pain, Hip pain, left Patient Disposition: Home, Self-Care Instructions: Acute Low Back Pain (ED), Arthralgia (ED), Back Pain (ED) Additional Instructions: You were seen in the emergency room and had x-rays of your lumbar spine and your left hip. See the findings below for more details. You have degenerative changes in your spine which is causing you to have your symptoms as it is compressing on the nerve. You need to follow-up with your primary care physician, you may need to have additional diagnostic imaging, as well as possible referral to physical therapy. And/or pain management. Gentle stretching, heat or ice, and massage can help your symptoms. Take Tylenol as directed as needed for [id number] pain. Oxycodone is a strong pain medication, please be advised that this can cause addictive behaviors, use sparingly. We are unable to refill this medication through the emergency room. Please be advised that this can also cause drowsine ss, do not drink alcohol or drive while taking this medication. If any new or worsening symptoms occur including but not limited to severe chest pain, shortness for breath, loss of bowel or bladder control, please seek emergent care. Prescriptions: New acetaminophen [Tylenol Extra Strength] 500 mg tablet 1,000 mg PO QID PRN (Reason: pain) Qty: 30 0RF lidocaine 5 % adhesive patch,medicated 1 patch topical DAILY Qty: 30 0RF Rx Instructions: leave on most painful area for up to 12 hrs oxycodone 5 mg capsule 5 mg PO Q6H PRN (Reason: severe pain) Qty: 7 0RF Rx Instructions: Partial Fill upon patient request. oxycodone 5 mg tablet 5 mg PO Q6H PRN (Reason: severe pain (scale score 7-10)) Qty: 7 0RF Rx Instructions: Partial Fill upon patient request. No Action primidone 50 mg tablet 50 mg PO TID fluticasone propion-salmeterol 250-50 mcg/dose blister with device 1 ea inhalation BID citalopram 40 mg tablet 40 mg PO DAILY atenolol 25 mg tablet 37.5 mg PO DAILY cyanocobalamin (vitamin B-12) 1,000 mcg tablet 1,000 mcg PO DAILY pravastatin 20 mg tablet 20 mg PO DAILY albuterol sulfate 90 mcg/actuation HFA aerosol inhaler 2 puff INHALATION Q6H PRN (Reason: wheezing) lisinopril 40 mg tablet 40 mg PO DAILY ondansetron 4 mg tablet,disintegrating 4 mg PO Q8H PRN (Reason: Nausea And Vomiting) doxycycline hyclate 100 mg tablet 100 mg PO BID Rx Instructions: END DATE: 01/23/25 cholecalciferol (vitamin D3) 50 mcg (2,000 unit) capsule 50 mcg PO DAILY nicotine (polacrilex) 2 mg Lozenge 2 mg buccal Q2H PRN (Reason: Nicotine Cravings) Qty: 72 0RF guaifenesin 100 mg/5 mL Liquid 100 mg PO Q4H PRN (Reason: Cough) Qty: 473 0RF warfarin [Jantoven] 5 mg Tablet 5 mg PO DAILY@1800 Qty: 7 0RF prednisone 20 mg tablet 20 mg PO DAILY Qty: 3 0RF magnesium oxide 400 mg (241.3 mg magnesium) Tablet 400 mg PO BIDPC Qty: 10 0RF oxycodone 5 mg tablet 5 mg PO Q8H PRN (Reason: pain) Qty: 7 0RF Rx Instructions: Partial Fill upon patient request. Interventions: ED Discharge Assessment Last Done: 03/19/25 14:46 Discharge Date/Time: 03/19/25 14:47 Print Language: B[place]
[2025-03-19 11:56] VITALS: BP 169/70; PULSE 60; RESP 18; TEMP 37; O2SAT 94
--- OUTSIDE RECORDS SUMMARY | 2025-03-19 14:42 | XMS_ITS | Data Portability ---
Author Organization [place] - [facility], Allergy Address [address] [place] [address] Care Team Providers Care Senior Credit Analyst Name Role Phone KEHINDE FLETCHER Primary Care Provider [phone] Assessment Encounter Date Assessment Date Assessment LastModified by Organization Details LastModified Time 12/01/2024 12/01/2024 69yo female with history of otosclerosis with mixed hearing loss and BPPV presents for evaluation of vertigo. She reports 3 episodes of room-spinning disequilibrium in the past couple days that last up to one hour with associated vomiting. She had a similar episode 6-7 years ago that was self-limiting. Triggers include bending down at work. Denies associated neurologic or otologic symptoms. Audiometric testing is stable. Patient declined Theron-Hallpike test for vertigo in the office. Symptoms and history are consistent with BPPV. The pathophysiology of BPPV was discussed in detail. Patient was provided with a referral to [facility] for Marbin maneuvers and vestibular therapy.? ? ?We discussed the fact that treatment of BPPV can require anywhere from 1 to 6 treatments for successful results, and has approximately 95% success rate in eliminating symptoms. BPPV can recur and if the classic positionally induced symptoms do recur, patient can call for further referrals. [email or web address] Not available 12/01/2024 17:48:18 Plan of Treatment Reminders Order Date Submit Date Provider Last Modified By Organization Details Last Modified Time Details Appointments None recorded. Lab None recorded. Referral vestibular therapy referral 2024 025 [facility] - Joo Funk, [address] [facility] , Rash[address], [place], [address], 01/22/202 5 10:19:04 Procedures None recorded. Surgeries None recorded. Imaging None recorded. Medication Orders None recorded. Patient TargetsNo targets recorded. Patient InstructionsNo instructions recorded. Reason for Referral Vestibular Therapy Referral for Benign paroxysmal positional vertigo Referring Physician: Grace Huynh, Otolaryngology, Encounter Date: 12/01/2024 Results Created Date Observation Date Name Description Value Unit Range Abnormal Flag Note LastModifiedBy Organization Detail LastModifiedTime 12/01/19 25 audio gram No observ ation record ed. BARCODE Not Available 2024 13:41:49 Result Notes None recorded. Problems Name Problem SNOMED Code Status Onset Date Resolution Date Notes Provider Name and Address Organization Details Recorded Time Sudden idiopathi c hearing loss 111089398 Active 2021 Sudden idiopathi c hearing loss, left ear; Note: Date Diagnosed : 08/21/2022 12:30 PM (H91.22) Not Available [facility] 4 02:25:54 Sensorine ural hearing loss in right ear 78598420004 100 Active 2021 Sensorine ural hearing loss, unilatera l, right ear, with restricte d hearing on the contralat eral side; Note: Date Diagnosed : 08/21/2022 11:55 AM (H90.A21) Not Available [facility] 4 02:26:15 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 81219747 Active 2016 Otosclero sis involving oval window, nonoblite rative, right ear; Note: Changed from H80.91 to H80.01 (09/25/20 17 1:34 PM) , Date Diagnosed : 05/15/2017 10:44 AM (H80.91) Otoscle rosis involving oval window, nonoblite rative, left ear; Note: Date Diagnosed : 05/15/2017 10:44 AM (H80.02) Not Available [facility] 4 02:26:17 Mixed conductiv e and sensorine ural hearing loss, bilateral 362962130 Active 2017 Mixed conductiv e and sensorine ural hearing loss, bilateral ; Note: Date Diagnosed : 11/26/2017 2:33 PM (H90.6) Mixed conductiv e and sensorine ural hearing loss, bilateral ; Note: Date Diagnosed : 02/05/2017 2:25 PM (H90.6) ; Start Date : 7 Not Available [facility] 4 02:25:49 Tobacco user 692214411 Active 2016 Tobacco use NOS; Note: Date Diagnosed : 02/05/2017 2:26 PM (Z72.0) Not Available [facility] 4 02:26:04 Mixed conductiv e and sensorine ural hearing loss of right ear 77499432027 105 Active 2016 Mixed conductiv e and sensorine ural hearing loss, unilatera l, right ear with restricte d hearing on the contralat eral side; Note: Date Diagnosed : 07/16/2017 3:45 PM (H90.A31) Not Available [facility] 4 02:25:54 Otosclero sis 33169530 Active 2016 Unspecifi ed otosclero sis, bilateral ; Note: Date Diagnosed : 02/05/2017 2:25 PM (H80.93) Not Available [facility] 4 02:25:52 Sensorine ural hearing loss in left ear 92783978021 109 Active 2016 Sensorine ural hearing loss, unilatera l, left ear, with restricte d hearing on the contralat eral side; Note: Date Diagnosed : 07/16/2017 3:46 PM (H90.A22) Not Available [facility] 4 02:26:02 Sensorine ural hearing loss of bilateral ears 466560547 Active 2021 Sensorine ural hearing loss, bilateral ; Note: Date Diagnosed : 09/19/2022 4:14 PM (H90.3) Not Available [facility] 4 02:26:11 Follow-up visit Active 2016 Medical surveilla nce following completed treatment ; Note: Date Diagnosed : 7 10:48 AM (Z09) Medical surveilla nce following completed treatment ; Note: Date Diagnosed : 05/22/2017 1:36 PM (Z09) ; Start Date : 07/07/201 7 Not Available [facility] 4 02:26:05 Mixed conductiv e and sensorine ural hearing loss of left ear 48287149993 107 Active 2021 Mixed conductiv e and sensorine ural hearing loss, unilatera l, left ear with restricte d hearing on the contralat eral side; Note: Date Diagnosed : 08/21/2022 11:55 AM (H90.A32) Not Available [facility] 4 02:25:53 Vertigo 927621043 Active 2024 RAYA TYLER MA, CCC-A [address]ASH[address] [facility], [place], [address] , [facility] - [facility] 5 10:47:35 Benign paroxysma l positiona l vertigo 269116083 Active 2024 GRACE HUYNH PA-C [address],[facility] [address], [place], [address] , [facility] - [facility] 5 11:23:15 Problem Notes None recorded. Procedures Surgical History Date Name Laterality Status Provider Name and Address Organization Details Recorded Time 12/01/2024 Comp Audio with Tymps - 46401 & 50184 completed RAYA TYLER MA, CCC-A [address], [place], [address], [facility] - [facility] 12/01/2024 10:44:24 Imaging Results Imaging Date Name Status LastModified by Organiz ation Details LastModified Time 12/01/2024 audiogram completed BARCODE Information no t available 12/01/2024 13:41:49 Procedure Notes None recorded. Medical Equipment None Reported. Medications Name Sig Start Date Stop Date Status Note LastModified by Organization Details LastModified Time primidone 50 mg tablet TAKE 1 TABLET BY MOUTH THREE TIMES DAILY active Not Available Not Available No t Available fluticaso ne 250 mcg-salme terol 50 mcg/dose blistr powdr for inhalatio n INHALE 1 PUFF INTO THE LUNGS TWICE DAILY active Not Available Not Available No t Available prednison e 10 mg tablet 2021 active Medicati on ID: [id number] D uration Value: 14 Brand Name: predniso ne Send Method: E-Prescr ibed Sub s Allowed: subs OK Speci al Instruct ion: Take 6 tabs PO QD X 9 days, then 5 tabs on day 10, 4 tabs day 11, 3 tabs day 12, 2 tabs day 13 and 1 tab day 14 Medic ationGen ericName : predniso ne Not Available Not Available Not Available meloxicam 15 mg tablet 2016 active Medicati on ID: [id number] D uration Value: 30 Brand Name: meloxica m Send Method: E-Prescr ibed Sub s Allowed: subs OK Speci al Instruct ion: TAKE 1 TABLET BY MOUTH EVERY DAY NEEDED FOR PAIN Med icationG enericNa me: meloxica m Not Available Not Available Not Available prednison e 20 mg tablet TAKE 2 TABLETS BY MOUTH DAILY FOR 5 DAYS active Not Available Not Available No t Available atenolol 25 mg tablet TAKE 1 AND 1/2 TABLETS BY MOUTH DAILY active Not Available Not Available No t Available cyanocoba randee (vit B-12) 1,000 mcg tablet TAKE 1 TABLET BY MOUTH EVERY DAY active Not Available Not Available No t Available Ciloxan 0.3 % eye drops 10/16 completed Medicati on ID: [id number] D uration Value: 5 Prescri bed By Name: PRASHANTH Lora nd Name: Ciloxan Send Method: E-Prescr ibed Sub s Allowed: subs OK Speci al Instruct ion: Instill 4 drops twice a day into the affected ear Medi cationGe nericNam e: Ciloxan Not Available Not Available Not Available citalopra m 20 mg tablet TAKE 1 TABLET BY MOUTH DAILY active Not Available Not Available No t Available trazodone 100 mg tablet 2016 active Medicati on ID: [id number] D uration Value: 15 Brand Name: trazodon e Send Method: E-Prescr ibed Sub s Allowed: subs OK Speci al Instruct ion: TAKE 1 TABLET BY MOUTH AT BEDTIME Medicati onGeneri cName: trazodon e Not Available Not Available Not Available benzonata te 100 mg capsule TAKE 1 CAPSULE BY MOUTH THREE TIMES DAILY FOR 5 DAYS FOR COUGH active Not Available Not Available No t Available flecainid e 50 mg tablet TAKE 1 TABLET BY MOUTH TWICE DAILY active Not Available Not Available No t Available pravastat in 20 mg tablet TAKE 1 TABLET BY MOUTH DAILY active Not Available Not Available No t Available albuterol sulfate HFA 90 mcg/actua tion aerosol inhaler INHALE 2 PUFFS INTO THE LUNGS EVERY 4 HOURS NEEDED FOR WHEEZING FOR UP TO 30 DAYS active Not Available Not Available No t Available Enid 5 mg-325 mg tablet 1-2 tablet by mouth 2016 active Medicati on ID: [id number] D uration Value: 7 Prescri bed By Name: Yesy Juarez M.D. Bra nd Name: Jasmyne Se nd Method: E-Prescr ibed Sub s Allowed: subs OK Medic ationGen ericName : Enid Not Available Not Available Not Available lisinopri l 40 mg tablet TAKE 1 TABLET BY MOUTH DAILY active Not Available Not Available No t Available sertralin e 50 mg tablet 2016 active Medicati on ID: [id number] D uration Value: 30 Brand Name: sertrali ne Send Method: E-Prescr ibed Sub s Allowed: subs OK Speci al Instruct ion: TAKE 1 TABLET BY MOUTH EVERY DAY Medi cationGe nericNam e: sertrali ne Not Available Not Available Not Available doxycycli ne hyclate 100 mg tablet active Not Available Not Available Not Available cholecalc iferol (vitamin D3) 50 mcg (2,000 unit) capsule TAKE 1 CAPSULE BY MOUTH EVERY DAY active Not Available Not Available No t Available Combivent Respimat 20 mcg-100 mcg/actua tion solution for inhalatio n INHALE 1 PUFF BY MOUTH THREE TIMES DAILY NEEDED active Not Available Not Available No t Available Eliquis 5 mg tablet TAKE 1 TABLET BY MOUTH TWICE DAILY active Not Available Not Available No t Available Anoro Ellipta 62.5 mcg-25 mcg/actua tion powder for inhalatio n INHALE 1 PUFF BY MOUTH AND INTO THE LUNGS EVERY DAY active Not Available Not Available No t Available colchicin e 0.6 mg capsule TAKE 1 CAPSULE BY MOUTH DAILY active Not Available Not Available No t Available Vitals None Recorded Social History None recorded. Functional Status None recorded. Mental Status None recorded. Family History Nothing Reported. Medical History No medical history recorded. Gynecological HistoryNo gynecological history recorded. Obstetrics History GPAL:G 0 P 0 0 0 0 Past Encounters Encounter ID Performer Location Encounter Start Date Encounter Closed Date Diagnosis/Indication Diagnosis SNOMED-CT Code Diagnosis ICD10 Code Diagnosis Note [id number] GRACE HUYNH PA-C [facility] [place] [address] [place] [address] 12/01/2024 10:07:13 12/01/2024 11:23:18 Nonobliterative otosclerosis involving oval window 41882614 H80.01 H80.02 Sensorineu ral hearing loss in right ear 7964733387 9100 H90.A21 Audiologic al evaluation results: Right ear: {{Normal N ormal through 2 kHz Mild M oderate Mo derately-s evere Erica re Profoun d Mild SNHL thru 4000Hz dropping#} } {{hearing hearing. s loping to a mild slopi ng to a moderate s loping to moderately severe slo ping to severe slo ping to profound f lat high frequency low frequency mid frequency cookie bite sinha curve to severe at 8000Hz#}} {{with* se nsorineura l hearing loss with condu ctive hearing loss with mixed hearing loss with}} {{excellen t* good fa ir poor no measurable }} word recognitio n. Left ear: {{Normal N ormal through 2 kHz Mild M oderate Mo derately-s evere Erica re Profoun d Moderate to mild mixed hearing loss thru 4000Hz#}} {{hearing hearing. s loping to a mild slopi ng to a moderate s loping to moderately severe slo ping to severe slo ping to profound f lat high frequency low frequency mid frequency cookie bite sinha curve drpp ing to moderate-s evere at 6 & 8kHz#}} {{with* se nsorineura l hearing loss with condu ctive hearing loss with mixed hearing loss with}} {{excellen t* good fa ir poor no measurable }} word recognitio n. Tympanomet ry: Right Ear:{{Type A Type As Type Ad* Type C Type C, shallow & rounded Ty pe B Type B with large volume Cou ld not maintain a hermetic seal}} Left Ear:{{Type A Type As Type Ad* Type C Type C, shallow & rounded Ty pe B Type B with large volume Cou ld not maintain a hermetic seal}} Benign par oxysmal positional vertigo 585104835 H81.13 Health Concerns Section Related Observation LastModified by Organization Detai ls LastModified Time None Recorded Concern Status LastModified by Organization Details LastModified Time None Recorded Advance Directives Directive None Recorded Payers Encounter Date Sequence Insurance Name Policy Number Policy Tran Covered Member ID Tran Member ID Guarantor Name 12/01/2024 1 [facility] (MEDICARE REPLACEMENT/A DVANTAGE - PPO) [id number] Raya Saeed Ryder [id number] Raya Soler Notes Date Note Type Note Provider Name and Address Organization Details Recorded Time 12/01/2024 text/html 69yo female with history of otosclerosis with mixed hearing loss and BPPV presents for evaluation of vertigo. She reports 3 episode of room-spinning disequilibrium in the past couple days. Endorses associated vomiting. She describes the sensation as light headedness and feeling a buzz. She had a similar episode 6-7 years ago that was self-limiting. 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 Episodes last up to an hour. Patient denies associated confusion, slurred speech, facial or extremity weakness, numbness, headache, chest pain, heart palpitations, or vision change. Denies change in hearing, tinnitus, or otalgia. She does have a tremor. Smoker. YESY JUAREZ MD [address] [place] [address], [place], [address], [facility] - [facility] 12/02/2024 07:33:25 OBGyn Episode No OBEpisode recorded.
--- OUTSIDE RECORDS SUMMARY | 2025-03-19 14:42 | XMS_ITS | Encounter Summary ---
Author Organization [facility] Address [address] [place] [address] Care Team Providers Care Fruit I Farmworker Name Role Phone Max George MD Primary Care Provider [phone] Encounter Details Date Type Department Care Team (Late Contact Info) Description 02/27/2025 Telephone Adult Medicine [address] [phone] Naima Molina MA Social History Tobacco Use Types Packs/Day Years Used Date Smoking Tobacco: Former Cigarettes Q uit: 07/17/2023 Smokeless Tobacco: Never Alcohol Use Standard Drinks/Week Comments Not Currently 5.8 (1 standard drink = 0.6 oz p ure alcohol) Comments No Sex and Gender Information Value Date Recorded Sex Assigned at Not on file Legal Sex Female 1:40 PM EST Gender Identity Not on file Sexual Orientation Not on file documented as of this encounter Plan of Treatment Upcoming Encounters Date Type Department Care Team (Late Contact Info) Description 05/11/2025 2:30 PM EDT Office Visit Adult Medicine [address] [phone] Stacey Griffin PA [address] [place] [address] 05/22/2025 1:00 PM EDT Appointment Radiology Department [address] [phone] 06/02/2025 2:15 PM EDT Office Visit [place] [address] [facility] [address] [place] [address] Julieta Carballo MD [address] [facility] [address] [place] [address] 06/15/2025 11:10 AM EDT Office Visit [facility] [address] [place] [address] [address] [place] [address] Judith Wright NP [address] [place] [address] Dr [address] [place] [address] documented as of this encounter Visit Diagnoses Not on filedocumented in this encounter Additional Health Concerns Assessment Noted Time PHQ-9 Depression Total Score: 0 01/09/20 3:23 PM EST A fall risk assessment has been complete d for the patient 01/09/2025 3:22 PM EST documented as of this encounter Care Teams Fruit I Farmworker Relationship Specialty Start Date End Date Max George MD [address] [place] [address] PCP - General Internal Medicine 05/08/15 documented as of this encounter
--- OUTSIDE RECORDS SUMMARY | 2025-03-19 14:42 | XMS_ITS | Encounter Summary ---
Author Organization [facility] Address [address] [place] [address] Care Team Providers Care Financial Advocate Name Role Phone Max George MD Primary Care Provider [phone] Reason for Visit * Reason Onset Date Comments Groin Pain 03/13/2025 Encounter Details Date Type Department Care Team ([facility] st Contact Info) Description 03/13/2025 Telephone Adult Medicine [facility] [address] [place] [address] Max George MD [address] [place] [address] Groin Pain Social History Tobacco Use Types Packs/Day Years [...] on file documented as of this encounter Progress Notes * DORINA Olson - 03/14/2025 1:03 PM EDT Thank you * Melanie Longoria RN - 03/14/2025 12:46 PM EDT Pt is still having 8/10 pain had to leave work. She is advised to go to the ed now, she understandsand agrees * Ankit Bellamy - 03/14/2025 9:10 AM EDT Patient is returning call back. She states that she is still in pain. * DORINA Olson - 03/13/2025 11:27 AM EDT I tried calling twice. No answer. VM left. I was worried about her during my office visit. If she does not have any significant improvement, or if she has new/worsening symptoms, would recommend ER evaluation or at least repeat evaluation in office today if possible. If she does not call back, can we try and give her a call before the end of the day * Veena Marx RN - 03/13/2025 9:37 AM EDT Was given prednisone and oxycodone Called to the pt States the pain is not worse than at the visit Was told that the nerve at the back is pressing on another nerve Took the prednisone and the pain is no longer in the hip but is all in the groin. Reaching over to the coffee table increases the pain Last evening was having more pain in the groin so she took an oxy and went to bed because sitting and standing were both causing pain She took today's prednisone and has 2 more left Please advise on increasing pain * Ankit Bellamy - 03/13/2025 8:44 AM EDT The patient is calling due to groin pain. She states that she was seen or spoken to about hip pain 03/09/25. Later on was informed that it is not hip pain and it is a nerve pain. She states this morning that in her groin area, she is feeling the pain and compared the pain from 03/09/25 from 10 to 8 scale. She was wondering if possible for someone to touch base with her about this issue via phone number [phone]. Patient also informed if she does not picker feeder first phone call, please try a second time due to new phone. Please Advise. documented in this encounter Plan of Treatment Upcoming Encounters Date Type Department Care Team (Late st Contact Info) Description 05/11/2025 2:30 PM EDT Office Visit [facility] [place] - [address] [phone] Stacey Griffin PA [address] [place] [address] 05/22/2025 1:00 PM EDT Appointment Radiology Department - [address] [phone] 06/02/2025 2:15 PM EDT Office Visit Pulmonolgy - [place] [address] [address] Julieta Carballo MD [address] [facility] [address] [place] [address] 06/15/2025 11:10 AM EDT Office Visit [facility] [address] [place] [address] [address] [place] [address] Judith Wright NP [address] [place] [address] [address] [place] [address] documented as of this encounter Visit Diagnoses Not on filedocumented in this encounter Additional Health Concerns Assessment Noted Time PHQ-9 Depression Total Score: 0 01/09/20 3:23 PM EST A fall risk assessment has been complete d for the patient 01/09/2025 3:22 PM EST documented as of this encounter Care Teams Financial Advocate Relationship Specialty Start Date End Date Max George MD [address] [place] [address] PCP - General Internal Medicine 05/08/15 documented as of this encounter
--- OUTSIDE RECORDS SUMMARY | 2025-03-19 14:42 | XMS_ITS | Clinical Summary ---
Author Organization [facility] PIERIS [employer] [facility] Address [address] [place] [phone] Phone Care Team Providers Care Recycling Specialist Name Role Phone Max George MD Primary Care Provider [phone] Allergies No known active allergies Medications atenoloL (TENORMIN) 25 mg tablet Take 1.5 tablets (37.5 mg total) by mouth 1 (one) time each day. 08/03/20 24 Active cyanocobalamin (VITAMIN B-12) 1,000 mcg tablet Take 1 tablet (1,000 mcg total) by mouth 1 (one) time each day. 08/03/20 24 Active lisinopril (PRINIVIL,ZEST RIL) 40 mg tablet Take 1 tablet (40 mg total) by mouth 1 (one) time each day. 08/03/20 24 Active primidone (MYSOLINE) 50 mg tablet Take 1 tablet (50 mg total) by mouth 3 (three) times a day. 09/09/20 23 Active albuterol HFA (PROAIR HFA ; PROVENTIL HFA ; VENTOLIN HFA) 90 mcg/actuation inhaler Inhale 2 puffs by mouth every 6 (six) hours if needed for wheezing. 6.7 g 11 12/12/19 25 026 Active cholecalcifero l (VITAMIN D-3) 25 mcg (1,000 unit) tablet Take 1 tablet (1,000 Units total) by mouth 1 (one) time each day. Active warfarin (COUMADIN) 5 mg tablet Take 1-2 tablets daily as directed by [facility] 60 tablet 6 01/27/20 25 Active betamethasone, augmented, (DIPROLENE-AF) 0.05 % cream Apply topically 2 (two) times a day. 30 g 1 02/28/20 25 Active pravastatin (PRAVACHOL) 20 mg tablet Take 1 tablet (20 mg total) by mouth 1 (one) time each day. 90 tablet 1 03/06/20 25 Active predniSONE (DELTASONE) 10 mg tablet Take 2 tabs PO daily for 3 days then 1 tab PO daily for 4 days 10 tablet 03/09/20 25 Active betamethasone, augmented, (DIPROLENE-AF) 0.05 % cream APPLY TO AFFECTED AREA TWICE A DAY NEEDED 03/26/20 22 025 Discontinued(Re order) loperamide (IMODIUM) 2 mg capsule 11/10/20 025 Discontinued pravastatin (PRAVACHOL) 20 mg tablet TAKE 1 TABLET BY MOUTH DAILY 90 tablet 1 12/08/19 025 Discontinued(Re order) citalopram (CeleXA) 40 mg tablet Take 1 tablet by mouth once daily 90 each 3 01/09/20 25 025 Discontinued magnesium oxide (MAG-OX) 400 mg magnesium tablet Take 1 tablet (400 mg total) by mouth 1 (one) time each day. 025 Discontinued oxyCODONE (ROXICODONE) 5 mg immediate release tablet Take 1 tablet (5 mg total) by mouth every 6 (six) hours if needed for severe pain for up to 3 days. Max Daily Amount: 20 mg 12 tablet 03/09/20 025 Active Problems Problem Noted Date Diagnosed Date A-fib ([facility] V24, [facility] V28) 09/09/2023 Overview (10/19/2024): Last Assessment & Plan: [...] will continue current therapies. Assessment & Plan (02/27/2025 4:29 PM EDT): Assessment & Plan (01/26/2025 9:23 AM EDT): Patient has a history of paroxysmal atrial fibrillation. Her last echocardiogram showed normal LV function. Currently, her heart rate is well-controlled today and EKG shows sinus bradycardia. She denies any perception of atrial fibrillation including palpitations or dizziness. She is a [id number] score of 3. She does report over the past few months, nonadherence to Eliquis due to the cost of the medication and insurance coverage. During her hospitalization 01/23/2025, she was discharged on warfarin 5 mg orally daily with instructions to follow-up with blood work. INR 01/24/2025 was 1.3. Currently, she does not have a clinic managing her INRs. We will refer her to our warfarin clinic for management of her INR. Goal INR 2-3. We discussed the risks and benefits of anticoagulation and she wishes to continue with warfarin. We also discussed the interaction that warfarin has with primidone which she takes for her tremors as this may increase her bleeding risk. She will continue to follow with her primary care provider regarding whether or not she needs to adjust her medication regimen. She is seeing her PCP today. We discussed bleeding risk and she accepts these risks. 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 Most recent fasting lipid panel showed acceptable cholesterol control. She will continue her current dose of pravastatin as prescribed. Anxiety 10/17/2013 Essential tremor 05/16/2013 Depression 02/14/2013 Insomnia 02/14/2013 HTN (hypertension) 01/24/2013 Overview (10/19/2024): Last Assessment & Plan: Patient's blood pressure is well-controlled today with a reading of 110/60. She will continue her current antihypertensive medication regimen with lisinopril and atenolol as prescribed. Assessment & Plan (01/26/2025 9:21 AM EDT): Patient's blood pressure is borderline today. She does report during her hospitalization, her blood pressure was elevated. I have given her prescription for home automatic blood pressure cuff to keep a blood pressure log for the next couple weeks and notify me of any consistently elevated readings greater than 145/90. She will continue her current antihypertensive medication regimen in the meantime. Assessment & Plan (01/11/2025 1:43 PM EST): [...] D 25 hydroxy; Future Hand eczema 12/05/2010 Resolved Problems Problem Noted Date Diagnosed Date Resolved Date Dyspnea 09/10/2023 01/26/2025 Overview (10/19/2024): Last Assessment & Plan: The [...] rest, or if they were to faint. Chest pain 09/09/2023 01/26/2025 Overview (10/19/2024): Last Assessment & Plan: The [...] nitroglycerin, or if they were to faint. Encounters Date Type Department Care Team Description 03/13/[address], [place] [phone] Max George MD Groin Pain 03/09/2025 11:38 AM EDT - 03/09/2025 11:59 PM EDT Hospital Encounter [address] [phone] Left hip pain Discharge Disposition: Home or Self Care 03/09/2025 11:30 AM EDT Office Visit [address] [phone] Braydon Hunter PA Left hip pain (Primary Dx) 03/03/2025 Anticoagulation - Warfarin Visit [facility] [address] [facility] [address] [place] [address] Tyron Chicas MD Atrial fibrillation, unspecified type (CMS/HCC V24, CMS/HCC V28) (Primary Dx) 02/27/2025 2:00 PM EDT Office Visit [address] [phone] Braydon Hunter PA Encounter for completion of form with patient (Primary Dx); COPD exacerbation (CMS/HCC V24, CMS/HCC V28); Atrial fibrillation, unspecified type (CMS/HCC V24, CMS/HCC V28) 02/27/[address] [phone] Naima Molina MA 02/17/2025 Anticoagulation - Warfarin Visit [facility] [address] [facility] [address] [place] [address] Tyron Chicas MD Atrial fibrillation, unspecified type (CMS/HCC V24, CMS/HCC V28) (Primary Dx) 02/10/2025 Anticoagulation - Warfarin Visit [facility] [address] [facility] [address] [place] [address] Tyron Chicas MD Atrial fibrillation, unspecified type (CMS/HCC V24, CMS/HCC V28) (Primary Dx) 02/03/2025 Anticoagulation - Warfarin Visit [facility] [address] [facility] [address] [place] [address] Tyron Chicas MD Atrial fibrillation, unspecified type (CMS/HCC V24, CMS/HCC V28) (Primary Dx) 02/02/[address] [phone] Max George MD Forms/questionnaires ([facility]) 01/30/2025 2:00 PM EDT [facility] [address] [place] [address] Julieta Carballo MD Chronic obstructive pulmonary disease, unspecified COPD type (CMS/HCC V24, CMS/HCC V28) (Primary Dx); Tobacco abuse 01/30/2025 Anticoagulation - Warfarin Visit [facility] [address] [place] [address] Tyron Chicas MD Atrial fibrillation, unspecified type (CMS/HCC V24, CMS/HCC V28) (Primary Dx) 01/26/2025 1:30 PM EDT Office Visit [address] [phone] Max George MD COPD exacerbation (CMS/HCC V24, CMS/HCC V28) (Primary Dx); Upper respiratory tract infection, unspecified type; Anxiety; Atrial fibrillation, unspecified type (CMS/HCC V24, CMS/HCC V28); Hypomagnesemia 01/26/2025 8:40 AM EDT Office Visit [facility] [address] [place] [address] Lisa Jarvis NP Atrial fibrillation, unspecified type (CMS/HCC V24, CMS/HCC V28) (Primary Dx); Hypertension, unspecified type; Mixed hyperlipidemia 01/26/2025 Anticoagulation - Warfarin Visit [facility] [address] [place] [address] Tyron Chicas MD Atrial fibrillation, unspecified type (CMS/HCC V24, CMS/HCC V28) (Primary Dx) 01/26/[address] [facility] [address] [place] [phone] Lisa Jarvis NP 01/25/2025 Telephone Adult Medicine [address] [phone] Max George MD Hospitalization/ER 01/09/2025 3:00 PM EST Office Visit Adult [address] [phone] Braydon Hunter PA Hypertension, unspecified type (Primary Dx); Atrial fibrillation, unspecified type (CMS/HCC V24, CMS/HCC V28); Vitamin D deficiency; Tubular adenoma from Last 3 Months Immunizations Name Administration Dates Next Due [employer] SARS-CoV-2 COVID-19, mRNA, LNP-S, preservative free 07/05/2021,06/20/2021 Td Tetanus diptheria (Tdvax) 7yo and older 04/27 Tdap Tetanus diptheria acell ular pertussis (Boostrix; Adacel) 7yo and older 03/13/2008 Surgical History Surgery Date Site/Laterality Comments KNEE SURGERY Left PROCEDURE: HISTORICAL KNEE SURGERY APPENDECTOMY PROCEDURE: HISTORICAL APPENDECTOMY COLONOSCOPY 03/12/2017 PROCEDURE: HISTORICAL COLONOSCOPY; COMMENT: normal; repeat in 10 yrs UPPER GASTROINTESTINAL ENDOSCOPY 08/10/2019 PROCEDURE: [place] UPPER GI ENDOSCOPY PERFORMED; COMMENT: Normal; duodenal [...] Cigarettes Q uit: 07/17/2023 Smokeless Tobacco: Never Tobacco Cessation:Counseling Given: Not Answered Alcohol Use Standard Drinks/Week Comments Not Currently 5.8 (1 standard drink = 0.6 oz p ure alcohol) Comments No Sex and Gender Information Value Date Recorded Sex Assigned at Not on file Legal Sex Female 1:40 PM EST Gender Identity Not on file Sexual Orientation Not on file Obstetrics History Last Filed Vital Signs Vital Sign Reading Time Taken Comments Blood Pressure 140/70 03/09/2025 12:21 PM EDT Pulse 60 03/09/2025 11:20 AM EDT Temperature 36.4 ??C (97.5 ??F) 03/09/2025 11:20 AM E DT Respiratory Rate 16 02/27/2025 2:04 PM EDT Oxygen Saturation 97% 02/27/2025 2:04 PM EDT Inhaled Oxygen Concentration - - Weight 59 kg (130 lb) 03/09/2025 11:20 AM EDT Height 165.1 cm (5' 5 ) 03/09/2025 11:20 AM EDT Body Mass Index 21.63 03/09/2025 11:20 AM EDT Plan of Treatment Upcoming Encounters Date Type Department Care Team (Late st Contact Info) Description 05/11/2025 2:30 PM EDT Office Visit Adult Medicine [place] - [address] [phone] Stacey Griffin PA [address] [place] [phone] 05/22/2025 1:00 PM EDT Appointment Radiology Department - [address] [phone] 06/02/2025 2:15 PM EDT Office Visit [facility] - [place] [address] [place] [address] Julieta Carballo MD [address] [place] [address] 06/15/2025 11:10 AM EDT Office Visit [facility] [address] [place] [address] Judith Wright, DOYLE [address] [place] [address] Health Maintenance Due Date Last Done Comments Pneumococcal Vaccine: 50+ Years (1 of 2 - PCV) 1974 Zoster Vaccines (1 of 2) 2005 RSV Immunization Adult Patients (1 - Risk 60-74 years 1-dose series) 2015 Social Influencers of Health Screening 10/25/2022 COVID-19 Vaccine ( - season) 2024 07/05/2021, 06/20/2021 Colorectal Cancer Screening: Colonoscopy 08/10/2024 08/10/2019, 03/12/2017 Influenza Vaccine (Season Ended) 2025 Lung Cancer Screening (Low Dose CT) 08/15/2025 08/15/2024, 08/12/2024, 12/28/2022 Depression Screening 01/09/2026 01/09/2025 Falls Risk Assessment 01/09/2026 01/09/2025, 025 Medicare Annual Wellness Visit 01/09/2026 01/09/2025 Hypertension/CHF/CAD Annual BMP Blood Test 03/09/2026 03/09/2025, 01/24/2025, 11/10/2023 Breast Cancer Screening 05/12/2026 05/12/20 24, 05/12/2024, 04/30/2023, Additional history exists DTaP,Tdap,and Td Vaccines (3 - Td or Tdap) 04/27/2028 04/27/2018, 03/13/2008 Cholesterol Screening (Lipid Panel) 01/24/2030 01/24/2025, 12/05/2022 Osteoporosis Screening (Bone Density Screening) 01/22/2033 01/22/2023, [...] age to complete this topic Meningococcal B Vaccine Aged Out No l onger eligible based on patient's age to complete this topic RSV Immunization Patients Under 20 months Aged Out No longer eligible based on patient's age to complete this topic Varicella Vaccines Aged Out No longer eligible based on patient's age to complete this topic Procedures Procedure Name Priority Date/Time Associated Diagnosis Comments COMPLETE BLOOD COUNT Routine 03/09/2025 12:39 PM EDT Left hip pain C-REACTIVE PROTEIN Routine 03/09/2025 12 :39 PM EDT Left hip pain BASIC METABOLIC PANEL Routine 03/09/2025 12:39 PM EDT Left hip pain XR HIP 2-3 VIEWS LEFT STAT 03/09/2025 11:50 AM EDT Left hip pain PROTHROMBIN TIME WITH INR Routine 03/03/2025 10:14 AM EDT Atrial fibrillation, unspecified type (CMS/HCC V24, CMS/HCC V28) PROTHROMBIN TIME WITH INR Routine 02/17/2025 11:45 AM EDT Atrial fibrillation, unspecified type (CMS/HCC V24, CMS/HCC V28) PROTHROMBIN TIME WITH INR Routine 02/10/2025 10:18 AM EDT Atrial fibrillation, unspecified type (CMS/HCC V24, CMS/HCC V28) PROTHROMBIN TIME WITH INR Routine 02/03/2025 10:22 AM EDT Atrial fibrillation, unspecified type (CMS/HCC V24, CMS/HCC V28) PROTHROMBIN TIME WITH INR Routine 01/30/2025 9:11 AM EDT Atrial fibrillation, unspecified type (CMS/HCC V24, CMS/HCC V28) MAGNESIUM Routine 01/30/2025 9:11 AM EDT Hypomagnesemia ECG 12-LEAD Routine 01/26/2025 9:20 AM EDT Atrial fibrillation, unspecified type (CMS/HCC V24, CMS/HCC V28) COMPLETE BLOOD COUNT Routine 01/24/2025 11:44 AM EDT Hypertension, unspecified type Atrial fibrillation, unspecified type (CMS/HCC V24, CMS/HCC V28) Vitamin D deficiency COMPREHENSIVE METABOLIC PANEL Routine 01/24/2025 11:44 AM EDT Hypertension, unspecified type Atrial fibrillation, unspecified type (CMS/HCC V24, CMS/HCC V28) Vitamin D deficiency THYROID STIMULATING HORMONE Routine 01/24/2025 11:44 AM EDT Hypertension, unspecified type Atrial fibrillation, unspecified type (CMS/HCC V24, CMS/HCC V28) Vitamin D deficiency LIPID PANEL WITH REFLEX TO DIRECT LDL Routine 01/24/2025 11:44 AM EDT Hypertension, unspecified type Atrial fibrillation, unspecified type (CMS/HCC V24, CMS/HCC V28) Vitamin D deficiency PROTHROMBIN TIME WITH INR Routine 01/24/2025 11:44 AM EDT Other disorders of electrolyte and fluid balance, not elsewhere classified Paroxysmal atrial fibrillation (CMS/HCC V24, CMS/HCC V28) MAGNESIUM Routine 01/24/2025 11:44 AM EDT Other disorders of electrolyte and fluid balance, not elsewhere classified Paroxysmal atrial fibrillation (CMS/HCC V24, CMS/HCC V28) VITAMIN D 25 HYDROXY Routine 01/24/2025 11:44 AM EDT Hypertension, unspecified type Atrial fibrillation, unspecified type (CMS/HCC V24, CMS/HCC V28) Vitamin D deficiency CT LUNG SCREENING LOW DOSE Routine 08/15/2024 10:40 AM EDT SCREENING MAMMOGRAPHY BI 2-VIEW BREAST INC CAD Routine 05/12/2024 9:52 AM EDT Encounter for screening mammogram for malignant neoplasm of breast DXA BONE DENSITY STUDY 1+ SITS AXIAL SKEL Routine 01/22/2023 11:40 AM EST Other specified disorders of bone density and structure, unspecified site COLONOSCOPY Routine 08/10/2019 HEPATITIS C SCREENING Routine 05/16/2013 from Last 3 Months or Most Recently Relevant to Health Maintenance Results * (ABNORMAL) Complete blood count (03/09/2025 12:39 PM EDT) Only the most recent of2 resultswithin the time period is included. WBC 11.5(H) 4.8 - 10.8 K/mcL LAB HEMETOLOGY METHOD 03/09/2025 3:00 PM EDT [facility] RBC 4.90(H) 3.80 - 4.80 M/mcL LAB HEMETOLOGY METHOD 03/09/2025 3:00 PM EDT [facility] Hemoglobin 15.0 11.5 - 16.0 g/dL LAB HEMETOLOGY METHOD 03/09/2025 3:00 PM [facility] Hematocrit 44.6 35.0 - 47.0 % LAB HEMETOLOGY METHOD 03/09/2025 3:00 PM EDT [facility] MCV 92.0 79.0 - 98.0 FL LAB HEMETOLOGY METHOD 03/09/2025 3:00 PM EDT [facility] MCH 30.9 27.0 - 32.0 pcg LAB HEMETOLOGY METHOD 03/09/2025 3:00 PM EDT [facility] MCHC 33.6 32.0 - 37.0 g/dL LAB HEMETOLOGY METHOD 03/09/2025 3:00 PM EDT [facility] RDW 15.4(H) 11.0 - 15.0 % LAB HEMETOLOGY METHOD 03/09/2025 3:00 PM EDT [facility] Platelets 298 130 - 400 K/mcL LAB HEMETOLOGY METHOD 03/09/2025 3:00 PM EDT [facility] MPV 9.7 7.0 - 11.0 FL LAB HEMETOLOGY METHOD 03/09/2025 3:00 PM EDT [facility] NRBC 0.0 <1.0 % LAB HEMETOLOGY METHOD 03/09/2025 3:00 PM EDT [facility] NRBC Absolute 0.00 <0.10 K/mcL LAB HEMETOLOGY METHOD 03/09/2025 3:00 PM EDT [facility] Blood Venous blood specimen / Unknown Venipuncture / Unknown 03/09/2025 12:39 PM EDT 03/09/2025 12:39 PM EDT us Braydon CAM LAB BLOOD ORDERABLES Fin al Result [facility] [address] [place] [address], * (ABNORMAL) C-reactive protein (03/09/2025 12:39 PM EDT) C-Reactive Protein 0.87(H) <=0.50 mg/dL LAB CHEMISTRY METHOD 03/09/2025 5:36 PM [facility] Blood Venous blood specimen / Unknown Venipuncture / Unknown 03/09/2025 12:39 PM EDT 03/09/2025 12:39 PM EDT us Braydon CAM LAB BLOOD ORDERABLES Fin al Result [facility] [address] [place] [address], * (ABNORMAL) Basic metabolic panel (03/09/2025 12:39 PM EDT) Sodium 131(L) 133 - 145 mmol/L LAB CHEMISTRY METHOD 03/09/2025 5:36 PM [facility] Potassium 5.0 3.5 - 5.5 mmol/L LAB CHEMISTRY METHOD 03/09/2025 5:36 PM [facility] Chloride 102 96 - 110 mmol/L LAB CHEMISTRY METHOD 03/09/2025 5:36 PM [facility] CO2 25 21 - 32 mmol/L LAB CHEMISTRY METHOD 03/09/2025 5:36 PM [facility] Anion Gap 4 3 - 11 LAB CHEMISTRY METHOD 03/09/2025 5:36 PM [facility] Glucose 97 70 - 100 mg/dL LAB CHEMISTRY METHOD 03/09/2025 5:36 PM [facility] BUN 13 5 - 25 mg/dL LAB CHEMISTRY METHOD 03/09/2025 5:36 PM [facility] Creatinine 0.82 0.50 - 1.10 mg/dL LAB CHEMISTRY METHOD 03/09/2025 5:36 PM [facility] eGFR 78 >=60 mL/min/1. 73m2 LAB CHEMISTRY METHOD 03/09/2025 5:36 PM [facility] Comment:Calculation based on the??Chronic Kidney Disease Epidemiology Collaboration (CKD-EPI) equation refit??without adjustment for race. BUN/Creatinine Ratio 15.9 LAB CHEMISTRY METHOD 03/09/2025 5:36 PM EDT [facility] Calcium 10.2 8.5 - 10.5 mg/dL LAB CHEMISTRY METHOD 03/09/2025 5:36 PM EDT [facility] Blood Venous blood specimen / Unknown Venipuncture / Unknown 03/09/2025 12:39 PM EDT 03/09/2025 12:39 PM EDT us Braydon CAM LAB BLOOD ORDERABLES Fin al Result [facility] [address] [place] [address], [place] [phone] * XR Hip 2-3 Views Left (03/09/2025 11:50 AM EDT) Anatomical Region Laterality Modality Lower Extremities, Hip Left Radiograp hic Imaging 03/09/2025 12:0 5 PM EDT Impressions 03/09/2025 12:06 PM EDT Minor osteoarthritis of the left hip. Lumbar spondylosis. -------- FINAL REPORT -------- Dictated By: Elizabeth Arroyo Dictated Date: 03/09/2025 12:05 ET Assigned Physician: Elizabeth Arroyo Reviewed and Electronically Signed By: Elizabeth Arroyo Signed Date: 03/09/2025 12:06 ET Workstation ID: [id number] Transcribed By: Self Edit Transcribed Date: 03/09/2025 12:05 ET Narrative 03/09/2025 12:06 PM EDT PELVIS, SINGLE FRONTAL VIEW LEFT HIP, FRONTAL & FROG LEG LATERAL VIEWS HISTORY: Left hip pain. PRIORS: None. FINDINGS: The hip joints are symmetric and are maintained. There is minor spurring of the left femoral head. There is degenerative change of the visualized lower lumbar spine. No acute fracture, malalignment, or soft tissue abnormality is seen. Procedure Note Elizabeth Arroyo MD - 03/09/2025 PELVIS, SINGLE FRONTAL VIEW LEFT HIP, FRONTAL & FROG LEG LATERAL VIEWS HISTORY: Left hip pain. PRIORS: None. FINDINGS: The hip joints are symmetric and are maintained. There is minor spurring of the left femoral head. There is degenerative change of the visualized lower lumbar spine. No acute fracture, malalignment, or soft tissue abnormality is seen. IMPRESSION: Minor osteoarthritis of the left hip. Lumbar spondylosis. -------- FINAL REPORT -------- Dictated By: Elizabeth Arroyo Dictated Date: 03/09/2025 12:05 ET Assigned Physician: Elizabeth Arroyo Reviewed and Electronically Signed By: Elizabeth Arroyo Signed Date: 03/09/2025 12:06 ET Workstation ID: [id number] Transcribed By: Self Edit Transcribed Date: 03/09/2025 12:05 ET B[facility]don CAM IMG XR PROCEDURES Final Result * (ABNORMAL) Prothrombin time with INR (03/03/2025 10:14 AM EDT) Only the most recent of6 resultswithin the time period is included. Protime 32.0(H) 10.6 - 13.9 sec LAB COAGULATION METHOD 03/03/2025 12:10 PM EDT [facility] INR 2.6 LAB COAGULATION METHOD 03/03/2025 12:10 PM EDT [facility] Blood Venous blood specimen / Unknown Venipuncture / Unknown 03/03/2025 10:14 AM EDT 03/03/2025 10:14 AM EDT Tyron Chicas MD LAB BLOOD ORDERABLES F inal Result [facility] [address] [place] [address], [place] [phone] * (ABNORMAL) Magnesium (01/30/2025 9:11 AM EDT) Only the most recent of2 resultswithin the time period is included. Pathologist [facility] Magnesium 1.8(L) 1.9 - 2.6 mg/dL LAB CHEMISTRY METHOD 01/30/2025 12:58 PM EDT [facility] Blood Venous blood specimen / Unknown Venipuncture / Unknown 01/30/2025 9:11 AM EDT 01/30/2025 9:11 AM EDT Max George MD LAB BLOOD ORDERABLES Final Resul t Performing Organization Address City/[facility]/ZIP Co de Phone Number [facility] [address] [place] [address], [place] [phone] * ECG 12 lead (01/26/2025 9:20 AM EDT) [facility] Ventricular Rate ECG 50 BPM GEMUSE Atrial Rate 50 BPM GEMUSE P-R Interval 160 ms GEMUSE QRS Duration 70 ms GEMUSE Q-T Interval 440 ms GEMUSE QTc 401 ms GEMUSE P Wave [place] 76 degrees GEMUSE R [place] 0 degrees GEMUSE T [place] 76 degrees GEMUSE ECG Interpretation Sinus bradycardia Otherwise normal ECG When compared with ECG of 08-AUG-2023 08:06, Sinus rhythm has replaced Atrial fibrillation Vent. rate has decreased BY ??72 BPM Nonspecific T wave abnormality no longer evident in Anterolateral leads Confirmed by TYRON CHICAS ([id number]) on 01/26/2025 9:25:30 AM GEMUSE 01/26/2025 8:36 AM EDT 01/26/2025 9:25 AM EDT Lisa Jarvis SCLEROSCOPE TESTER ECG ORDERABLES Edited Resu lt - Final Performing Organization Address City/[facility]/ZIP Co de Phone Number GEMUSE * Lipid panel with reflex to direct LDL (01/24/2025 11:44 AM EDT) [facility] Cholesterol 168 0 - 200 mg/dL LAB CHEMISTRY METHOD 01/24/2025 4:34 PM EDT [facility] Triglycerides 102 0 - 150 mg/dL LAB CHEMISTRY METHOD 01/24/2025 4:34 PM EDT [facility] HDL 70 >=40 mg/dL LAB CHEMISTRY METHOD 01/24/2025 4:34 PM EDT [facility] LDL Calculated 78 0 - 100 mg/dL LAB CHEMISTRY METHOD 01/24/2025 4:34 PM EDT [facility] VLDL Cholesterol Jd 20.4 mg/dL LAB CHEMISTRY METHOD 01/24/2025 4:34 PM EDT [facility] Non HDL Chol. (LDL+VLDL) 98 <145 mg/dL LAB CHEMISTRY METHOD 01/24/2025 4:34 PM EDT [facility] Chol/HDL Ratio 2.4 0.0 - 4.4 LAB CHEMISTRY METHOD 01/24/2025 4:34 PM EDT [facility] Blood Venous blood specimen / Unknown Venipuncture / Unknown 01/24/2025 11:44 AM EDT 01/24/2025 11:44 AM EDT [facility] LAB BLOOD ORDERABLES Fin al Result Performing Organization Address City/[facility]/ZIP Co de Phone Number [facility] [address] [place] [address], * Vitamin D 25 hydroxy (01/24/2025 11:44 AM EDT) Vit D, 25-Hydroxy 37.6 30.0 - 80.0 ng/mL LAB CHEMISTRY METHOD 01/24/2025 4:39 PM EDT [facility] Blood Venous blood specimen / Unknown Venipuncture / Unknown 01/24/2025 11:44 AM EDT 01/24/2025 11:44 AM EDT [facility] LAB BLOOD ORDERABLES Fin al Result [facility] [address] [place] [address], [place] [phone] * Thyroid stimulating hormone (01/24/2025 11:44 AM EDT) [facility] TSH 0.89 0.40 - 4.00 mcIU/mL LAB CHEMISTRY METHOD 01/24/2025 4:40 PM EDT [facility] Blood Venous blood specimen / Unknown Venipuncture / Unknown 01/24/2025 11:44 AM EDT 01/24/2025 11:44 AM EDT us [facility] LAB BLOOD ORDERABLES Fin al Result [facility] [address] [place] [address], [place] [phone] * (ABNORMAL) Comprehensive metabolic panel (01/24/2025 11:44 AM EDT) [facility] Sodium 133 133 - 145 mmol/L LAB CHEMISTRY METHOD 01/24/2025 4:34 PM [facility] Potassium 4.7 3.5 - 5.5 mmol/L LAB CHEMISTRY METHOD 01/24/2025 4:34 PM [facility] Chloride 97 96 - 110 mmol/L LAB CHEMISTRY METHOD 01/24/2025 4:34 PM [facility] CO2 27 21 - 32 mmol/L LAB CHEMISTRY METHOD 01/24/2025 4:34 PM [facility] Anion Gap 9 3 - 11 LAB CHEMISTRY METHOD 01/24/2025 4:34 PM [facility] Glucose 95 70 - 100 mg/dL LAB CHEMISTRY METHOD 01/24/2025 4:34 PM [facility] BUN 16 5 - 25 mg/dL LAB CHEMISTRY METHOD 01/24/2025 4:34 PM [facility] Creatinine 0.77 0.50 - 1.10 mg/dL LAB CHEMISTRY METHOD 01/24/2025 4:34 PM [facility] eGFR 84 >=60 mL/min/1. 73m2 LAB CHEMISTRY METHOD 01/24/2025 4:34 PM [facility] Comment:Calculation based on the??Chronic Kidney Disease Epidemiology Collaboration (CKD-EPI) equation refit??without adjustment for race. BUN/Creatinine Ratio 20.8 LAB CHEMISTRY METHOD 01/24/2025 4:34 PM T [facility] Calcium 9.6 8.5 - 10.5 mg/dL LAB CHEMISTRY METHOD 01/24/2025 4:34 PM [facility] AST (SGOT) 19 10 - 42 unit/L LAB CHEMISTRY METHOD 01/24/2025 4:34 PM [facility] ALT (SGPT) 19 10 - 60 unit/L LAB CHEMISTRY METHOD 01/24/2025 4:34 PM [facility] Alkaline Phosphatase 131(H) 42 - 121 unit/L LAB CHEMISTRY METHOD 01/24/2025 4:34 PM [facility] Total Protein 6.9 6.0 - 8.0 g/dL LAB CHEMISTRY METHOD 01/24/2025 4:34 PM [facility] Albumin 3.4 3.2 - 5.0 g/dL LAB CHEMISTRY METHOD 01/24/2025 4:34 PM [facility] Total Bilirubin 0.6 0.0 - 1.4 mg/dL LAB CHEMISTRY METHOD 01/24/2025 4:34 PM [facility] Blood Venous blood specimen / Unknown Venipuncture / Unknown 01/24/2025 11:44 AM EDT 01/24/2025 11:44 AM EDT us [facility] LAB BLOOD ORDERABLES Fin al Result [facility] [address] [place] [address], * CT LUNG SCREENING LOW DOSE (08/15/2024 10:40 AM EDT) Anatomical Region Laterality Modality Computed Tomogra phy 08/12/2024 2:27 PM EDT Narrative 08/15/2024 10:40 AM EDT [facility] Diagnostic Imaging Department [address] [place] [address] Patient: ??RAYA STEINER ?/Age/Sex: 1955 - 69 - F Unit#: ??[id number] ? Location/Status: ??SPDICATLS/REG CLI ? Mnemonic/Ordering Site: ??CTLUNGLD/SPCT Ordering Physician: ??DAVID CRUZ MD CT Lung Screening Low Dose - 08/12/24 - [id number] Report Status:Signed INDICATION: Current smoker with 44 pack-year smoking history FINDINGS: Low-dose CT scan of the chest obtained as a lung cancer screening study. Scanner: [employer] speed 64 slice VCT Dose reduction technique: [...] Procedure Note Lawrence Johnston MD - 08/31/2024 [facility] Diagnostic Imaging Department [address] [place] [address] Patient: RAYA STEINER /Age/Sex: 1955 - 69 - F Unit#: [id number] Location/Status: [facility]/AJ I Mnemonic/Ordering Site: [facility] Ordering Physician: DAVID CRUZ MD CT Lung Screening Low Dose - 08/12/24 - 9904 Report Status:Signed INDICATION: Current smoker with 44 pack-year smoking history FINDINGS: Low-dose CT scan of the chest obtained as a lung cancerscreening study. Scanner: [employer] speed 64 slice VCT Dose reduction technique: [...] Date/Time: 08/15/24 1028 Sign date/Time: 08/15/24 1040 us David Cruz MD IMG CT PROCEDURES Final [...] % Breast cancer risk category Low (<15%) us Max George MD IMG XR PROCEDURES Final Result * DXA BONE DENSITY STUDY [...] (World Health Organization Fracture Risk Assessment) [facility] Department of Internal Medicine recommends using National [...] alternative screening schedule based on kvng Luong., [facility] December 04, 2011 for patients with osteopenia [...] years. (World HealthOrganization Fracture Risk Assessment) [facility] Department of Internal Medicine recommendsusing National Osteoporosis [...] -1.50 and higher), BMD testingevery 15 years [facility] IMG DXA PROCEDURES Final Result * Colonoscopy (08/10/2019) [facility] Colonoscopy no interpreta tion,abstr acted Anatomical Region Laterality Modality Other Historical Provider HEALTH MAINTENANCE Final Result * Hepatitis C Screening (05/16/2013) [facility] Hepatitis C Screening abstracted Historical Provider HEALTH MAINTENANCE Final Result from Last 3 Months or Most Recently Relevant to Health Maintenance Insurance [employer] MEDICARE Advance Directives Documents on File Type Date Recorded 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
[2025-03-19 14:46] VITALS: BP 169/70; PULSE 60; RESP 18; TEMP 37; O2SAT 94
== END 2025-03-19 14:47 | disposition home or self-care (01) ==
PROVIDERS: Emergency Provider Emergency Medicine; PCP Internal Medicine
DX: M25.552 Pain in left hip (principal); M54.59 Other low back pain; I10 Essential (primary) hypertension; J44.9 Chronic obstructive pulmonary disease, unspecified; I48.0 Paroxysmal atrial fibrillation; F17.210 Nicotine dependence, cigarettes, uncomplicated; F12.90 Cannabis use, unspecified, uncomplicated; Z79.899 Other long term (current) drug therapy
CPT/HCPCS: 72100; 73502; 99282; 99283

== ENCOUNTER → 2025-03-19 12:06 | Outpatient (BNV) | payer MEDICARE, SELFPAY | PROVIDERS: PCP Internal Medicine; Visit Provider Radiology Diagnostic Radiology | DX: M25.552 Pain in left hip (principal); M54.50 Low back pain, unspecified | CPT/HCPCS: 72100; 73502 ==

== ENCOUNTER 2025-03-21 08:19 | Emergency (ER) | payer OTHER, MEDICARE, SELFPAY ==
[2025-03-21] VITALS (7 sets, daily range): BP systolic 108–142; BP diastolic 54–66; PULSE 45–50; RESP 17–19; TEMP 36.6–36.9; O2SAT 94–98; BMI 21.6
--- NOTE | ~2025-03-21 | XR_ITS ---
EXAMINATION: XR CHEST CLINICAL INFORMATION: cp COMPARISON: 01/20/2025. TECHNIQUE: AP view of the chest was obtained. FINDINGS: The cardiac, hilar, and mediastinal contours are normal. Lungs are mildly hyperaerated bilaterally, with mild flattening of the hemidiaphragms. There is mild bibasilar linear type atelectasis present. Lungs otherwise clear. There is no effusion or pneumothorax. No focal osseous or soft tissue abnormality. No fracture evident. There are moderate degenerative changes in the left greater than right shoulder joints, and mild changes throughout the spine. There is calcific tendinopathy of the right rotator cuff noted. XR/XR chest 1V IMPRESSION: Findings suggesting COPD. No active superimposed disease. Electronically signed by: Robert Vazquez MD 03/21/2025 09:31 AM EDT RP
--- NOTE | ~2025-03-21 | XR_ITS ---
EXAMINATION: XR ANKLE, RIGHT CLINICAL INFORMATION: ankle pain COMPARISON: None available. TECHNIQUE: AP, lateral, and mortise views of the right ankle. FINDINGS: There is an oblique fracture of the distal fibular metadiaphysis, extending to the level of the syndesmosis. There is mild posterior lateral displacement of the distal fracture fragment. No additional fractures identified. The mortise is intact. The talar dome is normal. The subtalar joints and calcaneus appear normal. There is an ankle joint effusion. There is prominent lateral soft tissue swelling. XR/XR ankle RT min 3V IMPRESSION: Oblique minimally displaced fracture lateral malleolus. No disruption of the ankle mortise noted. Electronically signed by: Robert Vazquez MD 03/21/2025 09:28 AM EDT RP
--- NOTE | ~2025-03-21 | CT_ITS ---
EXAMINATION: CT HEAD WITHOUT IV CONTRAST HISTORY: fall on coumadin. TECHNIQUE: Unenhanced helical CT of the head was performed per standard departmental protocol. Coronal and sagittal reformats of the head were also evaluated. One or more of the following techniques was used for dose reduction: Automated exposure control, adjustment of the mA and/or kV according to patient size, use of iterative reconstruction technique. DLP: 674 mGy-cm COMPARISON: Comparison is made with the prior examination dated 01/20/2025. FINDINGS: BRAIN: The brain parenchyma is unremarkable. There is normal hurst/white differentiation. The ventricular system is normal in size and configuration. There is no mass effect or midline shift. No intra- or extra-axial fluid collections are identified. SINUSES: The visualized paranasal sinuses are clear. The mastoid air cells and middle ear cavities are well pneumatized. ORBITS: The visualized orbits are unremarkable. BONES/SOFT TISSUES: The extracranial soft tissues are unremarkable. The calvarium is intact. No suspicious lytic or sclerotic lesions. CT/CT head/brain wo IV con IMPRESSION: No acute intracranial abnormality. Electronically signed by: Nick Guillory MD 03/21/2025 09:25 AM EDT
--- NOTE | 2025-03-21 08:32 | ECG_ITS ---
Test Reason : syncope Blood Pressure : */* mmHG Vent. Rate : 48 BPM Atrial Rate : 48 BPM P-R Int : 178 ms QRS Dur : 72 ms QT Int : 456 ms P-R-T Axes : 70 3 58 degrees QTcB Int : 407 ms Sinus bradycardia Otherwise normal ECG When compared with ECG of 20-Jan-2025 12:44, Left anterior fascicular block is no longer Present Borderline criteria for Anterior infarct are no longer Present Criteria for Inferior infarct are no longer Present Referred By: Generic ED Physician Electronically Signed By: MAIK ANGELO
--- NOTE | 2025-03-21 08:54 | ED.SYNCOPE ---
HPI - Syncope General Chief Complaint: Syncope Stated Complaint: FOUND BY STAFF SYNCOPE,HIT HEAD PER EMS Time Seen by Provider: 03/21/25 08:34 History of Present Illness HPI narrative: Patient is a 69-year-old female with a history of atrial fibrillation currently on Coumadin she did not eat breakfast this morning took an oxycodone for her chronic back pain. Went to work was standing at the [employer] got very lightheaded. Then had a syncopal episode. Patient denies any chest pain denies any bloody stool. Denies any fever chills coughing congestion. There is no leg swelling. She has been taking her Coumadin. Patient fell hit her head. Spontaneously recover. Came to the ED for help. Positive history of smoking. No history of [place] in the past. History of hypertension. Related Data Home Medications ?Medication ?Instructions ?Recorded ?Confirmed albuterol sulfate 90 mcg/actuation 2 puff inhalation Q6H PRN wheezing 01/21/25 01/21/25 aerosol inhaler atenolol 25 mg tablet 37.5 mg PO DAILY 01/21/25 01/21/25 cholecalciferol (vitamin D3) 50 50 mcg PO DAILY 01/21/25 01/21/25 mcg (2,000 unit) capsule citalopram 40 mg tablet 40 mg PO DAILY 01/21/25 01/21/25 cyanocobalamin (vitamin B-12) 1,000 mcg PO DAILY 01/21/25 01/21/25 1,000 mcg tablet doxycycline hyclate 100 mg tablet 100 mg PO BID 01/21/25 01/21/25 fluticasone 250 mcg-salmeterol 50 1 ea inhalation BID 01/21/25 01/21/25 mcg/dose blistr powdr for inhalation lisinopril 40 mg tablet 40 mg PO DAILY 01/21/25 01/21/25 ondansetron 4 mg disintegrating 4 mg PO Q8H PRN Nausea And Vomiting 01/21/25 01/21/25 tablet pravastatin 20 mg tablet 20 mg PO DAILY 01/21/25 01/21/25 primidone 50 mg tablet 50 mg PO TID 01/21/25 01/21/25 Previous Rx's ?Medication ?Instructions ?Recorded guaifenesin 100 mg/5 mL oral liquid 100 mg (5 mL) PO Q4H PRN Cough 01/23/25 #473 mL magnesium oxide 400 mg (241.3 mg 400 mg PO BIDPC #10 tabs 01/23/25 magnesium) tablet nicotine (polacrilex) 2 mg buccal 2 mg buccal Q2H PRN Nicotine 01/23/25 lozenge Cravings #72 ea prednisone 20 mg tablet 20 mg PO DAILY #3 tabs 01/23/25 warfarin 5 mg tablet (Jantoven) 5 mg PO DAILY@1800 #7 tabs 01/23/25 acetaminophen 500 mg tablet 1,000 mg (2 x 500 mg) PO QID PRN 03/19/25 (Tylenol Extra Strength) pain #30 tabs lidocaine 5 % topical patch 1 patch topical DAILY #30 ea 03/19/25 oxycodone 5 mg capsule 5 mg PO Q6H PRN severe pain #7 caps 03/19/25 oxycodone 5 mg tablet 5 mg PO Q6H PRN severe pain (scale 03/19/25 score 7-10) #7 tabs oxycodone 5 mg tablet 5 mg PO Q8H PRN pain #7 tabs 03/21/25 Allergies Allergy/AdvReac Type Severity Reaction Status Date / Time No Known Allergies Allergy Verified 03/21/25 08:31 Review of Systems Review of Systems: Positive syncopal episode Positive pain to the right ankle Yes all other systems are reviewed and are negative [facility] Past Medical History Attestation statement: The following information was validated with the patient. Medical History COPD (chronic obstructive pulmonary disease) Smoker unmotivated to quit Essential hypertension Social History Social History Household Members: None Housing: Apartment Do you presently have visiting nurse or other home services: No Patient Tobacco Use Status: Current everyday Tobacco user Tobacco use type: Cigarette Cigarette Packs Per Day: 0.5 Cigarettes Per Day: 10.0 Years Smoked: 30 Smoked in Last 30 Days: Yes Use of substances other than those prescribed or required for medical reasons: Yes Substance Use Type: Marijuana Advance Directives: Yes Advance Directives Information Provided: Yes Advance Directives on File: No Do you have a plan to hurt others: No Plan service: No Physical Exam Vital Signs: Vital Signs: Last Vital Signs Temp 98.4 F 05/06/25 08:29 Pulse 49 L 03/21/25 09:20 Resp 19 03/21/25 08:29 BP 130/66 03/21/25 09:20 Pulse Ox 94 03/21/25 09:23 O2 Del Method Room Air 03/21/25 09:23 BMI result Body Mass Index 21.6 Appearance: Alert. Oriented X3. No acute distress. Eyes: Pupils equal, round and reactive to light. ENT: Pharynx normal. Neck: Normal inspection. Neck supple. No lymph nodes noted. No crepitus CVS: Normal heart rate and rhythm. Pulses normal. Normal S1 and S2 Respiratory: No respiratory distress. Breath sounds normal. No Wheezing. No rales Abdomen: Soft and nontender. No rigidity. No distention. good BS x4 Skin: Skin warm and dry. Normal skin color. Normal skin turgor. Extremities: Positive pain to the right ankle there is swelling over the lateral malleolus. There is good distal pulses sensation intact range of motion intact Neuro: Oriented X 3. No motor deficit. No sensory deficit. Moving all extermities. No slurred speech Medical Decision Making Medical Decision Making MDM Narrative: Patient's symptoms consistent with vasovagal syncope. She was standing without breakfast subsequently felt lightheaded there was no chest pain. Then fell. Twisted her ankle. My interpretation patient's CT scan of the head was grossly negative for any acute evidence of bleeding. Patient is on Coumadin INR is subtherapeutic at 1.4. Patient is usually on 1.5 tablets up Coumadin 5 times a week with 1 tablet twice a week. Will ask patient to increase the Coumadin slightly to 1.5 tablets 6 times a week and 1 tablet once a week. Patient fair appearing not acute distress. Troponin was negative. Electrolytes unremarkable. Not orthostatic at this time. X-ray of the ankle by my interpretation shows a distal fibula fracture with a mortise that was intact. Patient was placed in a boot. Will give crutches. Follow-up orthopedics on an outpatient basis. Hemoglobin is 14 there is no evidence for anemia this is approximately baseline. No signs of GI bleed. Patient is sodium is 129 will need follow-up on an outpatient basis. Currently in stable condition. Will discharge home. My interpretation of patient's EKG showed a sinus rhythm heart rate is 50 MT QRS QTC normal no acute ST segment elevation. Patient has a history of being on atenolol. Differential Diagnosis Differential Diagnoses: The differential diagnosis associated with the presentation includes Syncope, head injury, intracranial bleed Admission/Observation Consideration of admission/observation: Escalation of care including admission/observation considered Lab Data MDM Lab Attestation statement: I reviewed the patient's lab results. 03/21/25 08:58 03/21/25 08:58 Labs: Lab Results 03/21/25 Range/Units 08:58 WBC 9.5 (4.8-10.8) X10*3/uL RBC 4.42 (4.20-5.50) X10*6/uL Hgb 14.0 (12.0-16.0) g/dl Hct 39.7 (37.0-47.0) % MCV 89.8 (80.0-98.0) fL MCH 31.7 (27.0-33.0) pg MCHC 35.3 H (31.0-35.0) g/dl RDW 15.0 (11.0-16.0) % Plt Count 268 (160-400) X10*3/uL MPV 8.6 L (9.4-12.3) fL Immature Gran % (Auto) 0.4 (0.0-0.4) % Neut % (Auto) 72.1 (45-73) % Lymph % (Auto) 15.3 L (20-40) % [place] % (Auto) 9.8 (2-11) % Eos % (Auto) 2.0 (0-4) % Baso % (Auto) 0.4 (0-2) % Lymph # (Auto) 1.5 (1.2-4.9) X10*3/uL [place] # (Auto) 0.9 (0.1-1.2) X10*3/uL Eos # (Auto) 0.2 (0.0-0.4) X10*3/uL Baso # (Auto) 0.0 (0.0-0.2) X10*3/uL Abs Immat Gran (auto) 0.04 H (0.00-0.03) X10*3/uL Absolute Neuts (auto) 6.8 (2.0-8.3) x10*3/uL Absolute Nucleated RBC 0.000 (0.0-0.012) X10*3/uL Nucleated RBC % (auto) 0.0 (0.0-0.2) /100WBC PT 16.2 H (10.9-12.4) SEC INR 1.4 H (0.9-1.1) Sodium 129 L (135-145) mmol/L Potassium 5.0 (3.3-5.1) mmol/L Chloride 97 (96-108) mmol/L Carbon Dioxide 25 (22-29) mmol/L Anion Gap 12 (12-20) BUN 19 H (9-16) mg/dL Creatinine 0.74 (0.5-1.4) mg/dL Estim Creat Clear Calc 64.5 Estimated GFR > 60 Random Glucose 102 (60-115) mg/dL Calcium 9.3 (8.4-10.2) mg/dL Total Bilirubin 0.3 (0.0-1.0) mg/dL Direct Bilirubin 0.1 (0.0-0.5) mg/dL AST 23 (5-31) U/L ALT 19 (0-31) U/L Alkaline Phosphatase 88 (39-117) U/L Troponin I High Sens < 2.7 (<3.5-17.0) ng/L Total Protein 6.8 (6.5-8.0) g/dL Albumin 4.0 (3.5-5.0) g/dL Independent Interpretation I performed an independent interpretation of an: EKG (Sinus heart rate is 50 MT QRS QTC normal no acute ST segment elevation), Plain X-Ray (No acute fracture) and CT Scan (CT head negative for bleed) Radiology Impression Discussion of test interpretation with radiology: I have reviewed the radiologist's reading. Independent Historian Clinical information obtained from an independent historian. History obtained from or confirmed by: Other (Family) External Record Review External record reviewed: Inpatient record Chronic Conditions History of AFib on Coumadin history of hypertension history of smoking Social Determinants Patient?s care significantly limited by Social Determinants of Health including: Problems related to primary support group Discharge Plan Discharge Clinical Impression: Fibula fracture, Syncope, Head injury Patient Disposition: Home, Self-Care Instructions: Leg Fracture (ED), Crutch Instructions (ED), Hyponatremia (ED), Syncope (DC), Head Injury (DC) Additional Instructions: Please use the boot Crutches for comfort. Your sodium is 129 slightly low. Will need follow-up. Prescriptions: New oxycodone 5 mg tablet 5 mg PO Q8H PRN (Reason: pain) Qty: 7 0RF Rx Instructions: Partial Fill upon patient request. No Action primidone 50 mg tablet 50 mg PO TID fluticasone propion-salmeterol 250-50 mcg/dose blister with device 1 ea inhalation BID citalopram 40 mg tablet 40 mg PO DAILY atenolol 25 mg tablet 37.5 mg PO DAILY cyanocobalamin (vitamin B-12) 1,000 mcg tablet 1,000 mcg PO DAILY pravastatin 20 mg tablet 20 mg PO DAILY albuterol sulfate 90 mcg/actuation HFA aerosol inhaler 2 puff INHALATION Q6H PRN (Reason: wheezing) lisinopril 40 mg tablet 40 mg PO DAILY ondansetron 4 mg tablet,disintegrating 4 mg PO Q8H PRN (Reason: Nausea And Vomiting) doxycycline hyclate 100 mg tablet 100 mg PO BID Rx Instructions: END DATE: 01/23/25 cholecalciferol (vitamin D3) 50 mcg (2,000 unit) capsule 50 mcg PO DAILY nicotine (polacrilex) 2 mg Lozenge 2 mg buccal Q2H PRN (Reason: Nicotine Cravings) Qty: 72 0RF guaifenesin 100 mg/5 mL Liquid 100 mg PO Q4H PRN (Reason: Cough) Qty: 473 0RF warfarin [Jantoven] 5 mg Tablet 5 mg PO DAILY@1800 Qty: 7 0RF prednisone 20 mg tablet 20 mg PO DAILY Qty: 3 0RF magnesium oxide 400 mg (241.3 mg magnesium) Tablet 400 mg PO BIDPC Qty: 10 0RF acetaminophen [Tylenol Extra Strength] 500 mg tablet 1,000 mg PO QID PRN (Reason: pain) Qty: 30 0RF lidocaine 5 % adhesive patch,medicated 1 patch topical DAILY Qty: 30 0RF Rx Instructions: leave on most painful area for up to 12 hrs oxycodone 5 mg capsule 5 mg PO Q6H PRN (Reason: severe pain) Qty: 7 0RF Rx Instructions: Partial Fill upon patient request. oxycodone 5 mg tablet 5 mg PO Q6H PRN (Reason: severe pain (scale score 7-10)) Qty: 7 0RF Rx Instructions: Partial Fill upon patient request. Referrals: Roe Prasad MD [Physician] - 03/24/25 Max George MD [Primary Care Provider] - 03/24/25 Stand Alone Forms: Work/School Release Print Language: Monegasque
[2025-03-21 09:03] LABS: MANUAL DIFF FLAG NO
[2025-03-21 09:06] LABS: Basophils Percent Auto 0.4 % (0-2); Eosinophils Absolute Auto 0.2 X10*3/uL (0.0-0.4); Hematocrit 39.7 % (37.0-47.0); Imm Gran Abs Auto 0.04 X10*3/uL (0.00-0.03); Imm Gran Pct Auto 0.4 % (0.0-0.4); Lymphocytes Absolute Auto 1.5 X10*3/uL (1.2-4.9); Lymphocytes Percent Auto 15.3 % (20-40); Mean Corpuscular HGB Conc 35.3 g/dl (31.0-35.0); Mean Corpuscular Hemoglobin 31.7 pg (27.0-33.0); Mean Corpuscular Volume 89.8 fL (80.0-98.0); Mean Platelet Volume 8.6 fL (9.4-12.3); Monocytes Absolute Auto 0.9 X10*3/uL (0.1-1.2); Monocytes Percent Auto 9.8 % (2-11); Neutrophils Absolute Auto 6.8 x10*3/uL (2.0-8.3); Neutrophils Percent Auto 72.1 % (45-73); Platelet Count 268 X10*3/uL (160-400); Red Blood Count 4.42 X10*6/uL (4.20-5.50); White Blood Count 9.5 X10*3/uL (4.8-10.8)
[2025-03-21 09:20] LABS: INTERNATIONAL NORM RATIO 1.4 (0.9-1.1); Prothrombin Time 16.2 SEC (10.9-12.4)
--- OUTSIDE RECORDS SUMMARY | 2025-03-21 09:28 | XMS_ITS | Encounter Summary ---
Author Organization [facility] Address [address] [place] [address] Care Team Providers Care Structural Design Engineer Name Role Phone Max George MD Primary Care Provider [phone] Encounter Details Date Type Department Care Team (Late Contact Info) Description 02/27/2025 Telephone Adult [address] [phone] Naima Molina [place] Social History Tobacco Use [...] Department Care Team (Late Contact Info) Description 03/23/2025 2:30 PM EDT Office Visit Adult Medicine [address] [phone] Braydon Hunter PA [address] [place] [address] 05/11/2025 2:30 PM EDT Office Visit Adult [address] [phone] Stacey Griffin PA [address] [place] [id number] 05/22/2025 1:00 PM EDT Appointment Radiology Department - [address] [phone] 06/02/2025 2:15 PM EDT Office Visit Pulmonolgy - [place] [address] [facility] [address] [place] [address] Julieta Carballo MD [address] [facility] [address] [place] [address] 06/15/2025 11:10 AM EDT Office Visit [facility] [address] [place] [address] Judith Wright NP [address] [place] [address] [address] [place] [address] documented as of this encounter Visit Diagnoses Not on filedocumented in this encounter Additional Health Concerns Assessment Noted Time PHQ-9 Depression Total Score: 0 01/09/20 25 3:23 PM EST A fall risk assessment has been complete d for the patient 01/09/2025 3:22 PM EST documented as of this encounter Care Teams Structural Design Engineer Relationship Specialty Start Date End Date Max George MD [address] [place] [id number] PCP - General Internal Medicine 05/08/15 documented as of this encounter
--- OUTSIDE RECORDS SUMMARY | 2025-03-21 09:28 | XMS_ITS | Data Portability ---
Author Organization [place] - [facility], Allergy Address [address] [place] [id number] Care Team Providers Care Side Stapler Name Role Phone KEHINDE FLETCHER Primary Care Provider Assessment Encounter Date Assessment Date Assessment LastModified [...] Patient was provided with a referral to [facility] for Marbin maneuvers and vestibular therapy.? [...] Therapy - Teodoro - Joo Funk, [address] [facility] , Rashid Lange, [place], [address], 01/22/202 5 10:19:04 Procedures None recorded. 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 34230247 Active 2016 Otosclero sis involving oval window, nonoblite rative, right ear; Note: Changed from H80.91 to H80.01 (09/25/20 17 1:34 PM) , Date Diagnosed : 05/15/2017 10:44 AM (H80.91) Otoscle rosis involving oval window, nonoblite rative, left ear; Note: Date Diagnosed : 05/15/2017 10:44 AM (H80.02) Not Available [facility] 4 02:26:17 Mixed conductiv e and sensorine ural hearing loss, bilateral 791382335 Active 2017 Mixed conductiv e and sensorine ural hearing loss, bilateral ; Note: Date Diagnosed : 11/26/2017 2:33 PM (H90.6) Mixed conductiv e and sensorine ural hearing loss, bilateral ; Note: Date Diagnosed : 02/05/2017 2:25 PM (H90.6) ; Start Date : 7 Not Available [facility] 4 02:25:49 Tobacco user 651264932 Active 2016 Tobacco use NOS; Note: Date Diagnosed : 02/05/2017 2:26 PM (Z72.0) Not Available [facility] 4 02:26:04 Mixed conductiv e and sensorine ural hearing loss of right ear 83635068252 105 Active 2016 Mixed conductiv e and sensorine ural hearing loss, unilatera l, right ear with restricte d hearing on the contralat eral side; Note: Date Diagnosed : 07/16/2017 3:45 PM (H90.A31) Not Available [facility] 4 02:25:54 Otosclero sis 13119340 Active 2016 Unspecifi ed otosclero sis, bilateral ; Note: Date Diagnosed : 02/05/2017 2:25 PM (H80.93) Not Available [facility] 4 02:25:52 Sensorine ural hearing loss in left ear 28020146163 109 Active 2016 Sensorine ural hearing loss, unilatera l, left ear, with restricte d hearing on the contralat eral side; Note: Date Diagnosed : 07/16/2017 3:46 PM (H90.A22) Not Available [facility] 4 02:26:02 Sensorine ural hearing loss of bilateral ears 531874178 Active 2021 Sensorine ural hearing loss, bilateral ; Note: Date Diagnosed : 09/19/2022 4:14 PM (H90.3) Not Available [facility] 4 02:26:11 Follow-up visit Active 2016 Medical surveilla nce following completed treatment ; Note: Date Diagnosed : 7 10:48 AM (Z09) Medical surveilla nce following completed treatment ; Note: Date Diagnosed : 05/22/2017 1:36 PM (Z09) ; Start Date : 07/07/201 7 Not Available [facility] 4 02:26:05 Mixed conductiv e and sensorine ural hearing loss of left ear 16852730449 107 Active 2021 Mixed conductiv e and sensorine ural hearing loss, unilatera l, left ear with restricte d hearing on the contralat eral side; Note: Date Diagnosed : 08/21/2022 11:55 AM (H90.A32) Not Available [facility] 4 02:25:53 Vertigo 966760577 Active 2024 RAYA TYLER MA, CCC-A [address] [facility], [place], [address] , [facility] - [facility] 5 10:47:35 Benign paroxysma l positiona l vertigo 621053938 Active 2024 GRACE HUYNH PA-C [address],[facility] [address], [place], [address] , [facility] - [facility] 5 11:23:15 Problem Notes None recorded. Procedures Surgical History Date Name Laterality Status Provider Name and Address Organization Details Recorded Time 12/01/2024 Comp Audio with Tymps - 17279 & 50302 completed RAYA TYLER MA, CCC-A [address] [place],[address], [place], [address], [facility] - [facility] 12/01/2024 10:44:24 Imaging Results Imaging Date Name [...] mg tablet 2021 active Medicati on ID: 615242 D uration Value: 14 Brand Name: predniso [...] mg tablet 2016 active Medicati on ID: [id number] D uration Value: 30 Brand Name: meloxica [...] eye drops 10/16 completed Medicati on ID: 253914 D uration Value: 5 Prescri bed By [...] mg tablet 2016 active Medicati on ID: 179997 D uration Value: 15 Brand Name: trazodon [...] Not Available Not Available No t Available [place] 5 mg-325 mg tablet 1-2 tablet by mouth 2016 active Medicati on ID: 368443 D uration Value: 7 Prescri bed By Name: Yesy Juarez M.D. Bra nd Name: Jasmyne Se nd Method: E-Prescr ibed Sub s Allowed: subs OK Medic ationGen ericName : [place] Not Available Not Available Not Available lisinopri l 40 mg tablet TAKE 1 TABLET BY MOUTH DAILY active Not Available Not Available No t Available sertralin e 50 mg tablet 2016 active Medicati on ID: [id number] D uration Value: 30 Brand Name: sertrali [...] SNOMED-CT Code Diagnosis ICD10 Code Diagnosis Note [id number] GRACE HUYNH PA-C [facility] [address] [place] [address] 12/01/2024 10:07:13 12/01/2024 11:23:18 Nonobliterative otosclerosis involving oval window [id number] H80.01 H80.02 Sensorineu ral hearing loss in right ear [id number] 9100 H90.A21 Audiologic al evaluation results: Right [...] hermetic seal}} Benign par oxysmal positional vertigo 863525556 H81.13 Health Concerns Section Related Observation LastModified by Organization Detai ls LastModified Time None Recorded Concern Status LastModified by Organization Details LastModified Time None Recorded Advance Directives Directive None Recorded Payers Encounter Date Sequence Insurance Name Policy Number Policy Tran Covered Member ID Tran Member ID Guarantor Name 12/01/2024 1 [facility] (MEDICARE REPLACEMENT/A DVANTAGE - PPO) [id number] Raya Saeed Ryder [id number] Raya Soler Notes Date Note Type Note [...] 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 Episodes last up to an hour. Patient denies associated confusion, slurred speech, facial or extremity weakness, numbness, headache, chest pain, heart palpitations, or vision change. Denies change in hearing, tinnitus, or otalgia. She does have a tremor. Smoker. YESY JUAREZ MD [address] [place] [address], [place], [address], [facility] - [facility] 12/02/2024 07:33:25 OBGyn Episode No OBEpisode recorded.
--- OUTSIDE RECORDS SUMMARY | 2025-03-21 09:28 | XMS_ITS | Clinical Summary ---
Author Organization [facility] Address [address] [place] [address] Phone Care Team Providers Care Crew Foreman Name Role Phone Max George MD Primary Care Provider [phone] Allergies No known active allergies Medications atenoloL [...] Problems Problem Noted Date Diagnosed Date A-fib ([facility] V24, [facility] V28) 09/09/2023 Overview (10/19/2024): Last Assessment & [...] including palpitations or dizziness. She is a [id number] score of 3. She does report over [...] 1 mild COPD by GOLD cl assification ([facility] V24, [facility] V28) 09/09/2023 Overview (10/19/2024): Last Assessment & [...] Type Department Care Team Description 03/13/2025 [address], [place] [phone] Max George MD Groin Pain 03/09/2025 11:38 AM EDT - 03/09/2025 11:59 PM EDT Hospital Encounter [address] [phone] Left hip pain Discharge Disposition: Home or Self Care 03/09/2025 11:30 AM EDT Office Visit [address] [phone] Braydon Hunter PA Left hip pain (Primary Dx) 03/03/2025 Anticoagulation - Warfarin Visit [facility] [address] [facility] [address] [place] [address] Tyron Chicas MD Atrial fibrillation, unspecified type (CMS/HCC V24, CMS/HCC V28) (Primary Dx) 02/27/2025 2:00 PM EDT Office Visit [address] [phone] Braydon Hunter PA Encounter for completion of form with patient (Primary Dx); COPD exacerbation (CMS/HCC V24, CMS/HCC V28); Atrial fibrillation, unspecified type (CMS/HCC V24, CMS/HCC V28) 02/27/[address] [phone] Naima Molina [place] 02/17/2025 Anticoagulation - Warfarin Visit [facility] [address] [place] [address] Tyron Chicas MD Atrial fibrillation, unspecified type (CMS/HCC V24, CMS/HCC V28) (Primary Dx) 02/10/2025 Anticoagulation - Warfarin Visit [facility] [address] [place] [address] Tyron Chicas MD Atrial fibrillation, unspecified type (CMS/HCC V24, CMS/HCC V28) (Primary Dx) 02/03/2025 Anticoagulation - Warfarin Visit [facility] [address] [place] [address] Tyron Chicas MD Atrial fibrillation, unspecified type (CMS/HCC V24, CMS/HCC V28) (Primary Dx) 02/02/[address] [phone] Max George MD Forms/questionnaires ([facility]) 01/30/2025 2:00 PM EDT [facility] [address] [place] [address] Julieta Carballo MD Chronic obstructive pulmonary disease, unspecified COPD type (CMS/HCC V24, CMS/HCC V28) (Primary Dx); Tobacco abuse 01/30/2025 Anticoagulation - Warfarin Visit [facility] [address] [place] [address] Tyron Chicas MD Atrial fibrillation, unspecified type (CMS/HCC V24, CMS/HCC V28) (Primary Dx) 01/26/2025 1:30 PM EDT Office Visit [address] [phone] Max George MD COPD exacerbation (CMS/HCC V24, CMS/HCC V28) (Primary Dx); Upper respiratory tract infection, unspecified type; Anxiety; Atrial fibrillation, unspecified type (CMS/HCC V24, CMS/HCC V28); Hypomagnesemia 01/26/2025 8:40 AM EDT Office Visit [facility] [address] [place] [address] Lisa Jarvis NP Atrial fibrillation, unspecified type (CMS/HCC V24, CMS/HCC V28) (Primary Dx); Hypertension, unspecified type; Mixed hyperlipidemia 01/26/2025 Anticoagulation - Warfarin Visit [facility] [address] [place] [address] Tyron Chicas MD Atrial fibrillation, unspecified type (CMS/HCC V24, CMS/HCC V28) (Primary Dx) 01/26/[address] [facility] [address] [place] [phone] Lisa Jarvis NP 01/25/2025 Telephone Adult Medicine [address] [phone] Max George MD Hospitalization/ER 01/09/2025 3:00 PM EST Office Visit Adult [address] [phone] Braydon Hunter PA Hypertension, unspecified type (Primary Dx); Atrial fibrillation, unspecified type (CMS/HCC V24, CMS/HCC V28); Vitamin D deficiency; Tubular adenoma from Last 3 Months Immunizations Name Administration Dates Next Due [place] SARS-CoV-2 COVID-19, mRNA, LNP-S, preservative free 07/05/2021,06/20/2021 Td Tetanus diptheria (Tdvax) 7yo and older 04/27 Tdap Tetanus diptheria acell ular pertussis (Boostrix; Adacel) 7yo and older 03/13/2008 Surgical History Surgery Date Site/Laterality Comments KNEE SURGERY Left PROCEDURE: HISTORICAL KNEE SURGERY APPENDECTOMY PROCEDURE: HISTORICAL APPENDECTOMY COLONOSCOPY 03/12/2017 PROCEDURE: HISTORICAL COLONOSCOPY; COMMENT: normal; repeat in 10 yrs UPPER GASTROINTESTINAL ENDOSCOPY 08/10/2019 PROCEDURE: UT UPPER GI ENDOSCOPY PERFORMED; COMMENT: Normal; duodenal [...] Care Team (Late st Contact Info) Description 03/23/2025 2:30 PM EDT Office Visit Adult Medicine [address] [phone] Braydon Hunter PA [address] [place], [place] 05/11/2025 2:30 PM EDT Office Visit Adult Medicine [address] [phone] Stacey Griffin PA [address] [place] [address] 05/22/2025 1:00 PM EDT Appointment Radiology Department - [address] [phone] 06/02/2025 2:15 PM EDT Office Visit [facility]gy - [place] [address] [facility] [address] [place] [address] Julieta Carballo MD [address] [facility] [address] [place] [address] 06/15/2025 11:10 AM EDT Office Visit [facility] [address] [place] [phone] Judith Wright NP [address] [place] [address] Dr [address] [place] [address] Health Maintenance Due Date Last Done Comments Pneumococcal Vaccine: 50+ Years (1 of 2 - PCV) 1974 Zoster Vaccines (1 of 2) 2005 RSV Immunization Adult Patients (1 - Risk 60-74 years 1-dose series) 2015 Social Influencers of Health Screening 10/25/2022 COVID-19 Vaccine ( season) 2024 07/05/2021, 06/20/2021 Colorectal Cancer Screening: Colonoscopy 08/10/2024 08/10/2019, 03/12/2017 Influenza Vaccine (Season Ended) 2025 Lung Cancer Screening (Low Dose CT) 08/15/2025 08/15/2024, 08/12/2024, 12/28/2022 Depression Screening 01/09/2026 01/09/2025 Falls Risk Assessment 01/09/2026 01/09/2025, 025 Medicare Annual Wellness Visit 01/09/2026 01/09/2025 Hypertension/CHF/CAD Annual BMP Blood Test 03/09/2026 03/09/2025, 01/24/2025, 11/10/2023 Breast Cancer Screening 05/12/2026 05/12/20, 05/12/2024, 04/30/2023, Additional history exists DTaP,Tdap,and Td [...] LAB HEMETOLOGY METHOD 03/09/2025 3:00 PM EDT [facility] RBC 4.90(H) 3.80 - 4.80 M/mcL LAB HEMETOLOGY METHOD 03/09/2025 3:00 PM EDT [facility] Hemoglobin 15.0 11.5 - 16.0 g/dL LAB HEMETOLOGY METHOD 03/09/2025 3:00 PM EDT [facility] Hematocrit 44.6 35.0 - 47.0 % LAB HEMETOLOGY METHOD 03/09/2025 3:00 PM EDT [facility] MCV 92.0 79.0 - 98.0 FL LAB HEMETOLOGY METHOD 03/09/2025 3:00 PM EDT [facility] MCH 30.9 27.0 - 32.0 pcg LAB HEMETOLOGY METHOD 03/09/2025 3:00 PM EDT [facility] MCHC 33.6 32.0 - 37.0 g/dL LAB HEMETOLOGY METHOD 03/09/2025 3:00 PM [facility] RDW 15.4(H) 11.0 - 15.0 % LAB HEMETOLOGY METHOD 03/09/2025 3:00 PM EDT [facility] Platelets 298 130 - 400 K/mcL LAB HEMETOLOGY METHOD 03/09/2025 3:00 PM EDT [facility] MPV 9.7 7.0 - 11.0 FL LAB HEMETOLOGY METHOD 03/09/2025 3:00 PM EDT [facility] NRBC 0.0 <1.0 % LAB HEMETOLOGY METHOD 03/09/2025 3:00 PM EDT [facility] NRBC Absolute 0.00 <0.10 K/mcL LAB HEMETOLOGY METHOD 03/09/2025 3:00 PM T [facility] Blood Venous blood specimen / Unknown Venipuncture / Unknown 03/09/2025 12:39 PM EDT 03/09/2025 12:39 PM EDT us Braydon CAM LAB BLOOD ORDERABLES Fin al Result [facility] [address] [place] [address], [place] [phone] * (ABNORMAL) C-reactive protein (03/09/2025 12:39 PM EDT) [facility] C-Reactive Protein 0.87(H) <=0.50 mg/dL LAB CHEMISTRY METHOD 03/09/2025 5:36 PM EDT [facility] Blood Venous blood specimen / Unknown Venipuncture / Unknown 03/09/2025 12:39 PM EDT 03/09/2025 12:39 PM EDT Braydon CAM LAB BLOOD ORDERABLES Fin al Result [facility] [address] [place] [address], [place] [phone] * (ABNORMAL) Basic metabolic panel (03/09/2025 12:39 PM EDT) [facility] Sodium 131(L) 133 - 145 mmol/L LAB CHEMISTRY METHOD 03/09/2025 5:36 PM EDT [facility] Potassium 5.0 3.5 - 5.5 mmol/L LAB CHEMISTRY METHOD 03/09/2025 5:36 PM T [facility] Chloride 102 96 - 110 mmol/L LAB CHEMISTRY METHOD 03/09/2025 5:36 PM EDT [facility] CO2 25 21 - 32 mmol/L LAB CHEMISTRY METHOD 03/09/2025 5:36 PM EDT [facility] Anion Gap 4 3 - 11 LAB CHEMISTRY METHOD 03/09/2025 5:36 PM T [facility] Glucose 97 70 - 100 mg/dL LAB CHEMISTRY METHOD 03/09/2025 5:36 PM EDT [facility] BUN 13 5 - 25 mg/dL LAB CHEMISTRY METHOD 03/09/2025 5:36 PM EDT [facility] Creatinine 0.82 0.50 - 1.10 mg/dL LAB CHEMISTRY METHOD 03/09/2025 5:36 PM EDT [facility] eGFR 78 >=60 mL/min/1. 73m2 LAB CHEMISTRY METHOD 03/09/2025 5:36 PM EDT [facility] Comment:Calculation based on the??Chronic Kidney Disease Epidemiology Collaboration (CKD-EPI) equation refit??without adjustment for race. BUN/Creatinine Ratio 15.9 LAB CHEMISTRY METHOD 03/09/2025 5:36 PM EDT [facility] Calcium 10.2 8.5 - 10.5 mg/dL LAB CHEMISTRY METHOD 03/09/2025 5:36 PM EDT [facility] Blood Venous blood specimen / Unknown Venipuncture / Unknown 03/09/2025 12:39 PM EDT 03/09/2025 12:39 PM EDT us Braydon CAM LAB BLOOD ORDERABLES Fin al Result [facility] [address] [place] [address], * XR Hip 2-3 Views Left (03/09/2025 [...] Signed Date: 03/09/2025 12:06 ET Workstation ID: [id number] Transcribed By: Self Edit Transcribed Date: 03/09/2025 [...] Signed Date: 03/09/2025 12:06 ET Workstation ID: [id number] Transcribed By: Self Edit Transcribed Date: 03/09/2025 12:05 ET Braydon CAM IMG XR PROCEDURES Final Result * (ABNORMAL) Prothrombin time with INR (03/03/2025 10:14 AM EDT) Only the most recent of6 resultswithin the time period is included. Protime 32.0(H) 10.6 - 13.9 sec LAB COAGULATION METHOD 03/03/2025 12:10 PM EDT [facility] INR 2.6 LAB COAGULATION METHOD 03/03/2025 12:10 PM EDT [facility] Blood Venous blood specimen / Unknown Venipuncture / Unknown 03/03/2025 10:14 AM EDT 03/03/2025 10:14 AM EDT Tyron Chicas MD LAB BLOOD ORDERABLES F inal Result Performing Organization Address [facility] de Phone Number [facility] [address] [place] [address], * (ABNORMAL) Magnesium (01/30/2025 9:11 AM EDT) Only the most recent of2 resultswithin the time period is included. Pathologist [facility] Magnesium 1.8(L) 1.9 - 2.6 mg/dL LAB CHEMISTRY METHOD 01/30/2025 12:58 PM EDT [facility] Blood Venous blood specimen / Unknown Venipuncture / Unknown 01/30/2025 9:11 AM EDT 01/30/2025 9:11 AM EDT Max George MD LAB BLOOD ORDERABLES Final Resul t Performing Organization Address [facility] de Phone Number [facility] [address] [place] [address], * ECG 12 lead (01/26/2025 9:20 AM EDT) [facility] Ventricular Rate ECG 50 BPM GEMUSE Atrial Rate 50 BPM GEMUSE P-R Interval 160 ms GEMUSE QRS Duration 70 ms GEMUSE Q-T Interval 440 ms GEMUSE QTc 401 ms GEMUSE P Wave [place] 76 degrees GEMUSE R [place] 0 degrees GEMUSE T [place] 76 degrees GEMUSE ECG Interpretation Sinus bradycardia Otherwise normal ECG When compared with ECG of 08-AUG-2023 08:06, Sinus rhythm has replaced Atrial fibrillation Vent. rate has decreased BY ??72 BPM Nonspecific T wave abnormality no longer evident in Anterolateral leads Confirmed by TYRON CHICAS ([id number]) on 01/26/2025 9:25:30 AM GEMUSE 01/26/2025 8:36 AM EDT 01/26/2025 9:25 AM EDT Lisa Jarvis ELECTRIC MOTOR REPAIRING SUPERVISOR ECG ORDERABLES Edited Resu lt - Final [place] * Lipid panel with reflex to direct LDL (01/24/2025 11:44 AM EDT) Cholesterol 168 0 - 200 mg/dL LAB CHEMISTRY METHOD 01/24/2025 4:34 PM EDT [facility] Triglycerides 102 0 - 150 mg/dL LAB CHEMISTRY METHOD 01/24/2025 4:34 PM EDT [facility] HDL 70 >=40 mg/dL LAB CHEMISTRY METHOD 01/24/2025 4:34 PM EDT [facility] LDL Calculated 78 0 - 100 mg/dL LAB CHEMISTRY METHOD 01/24/2025 4:34 PM EDT [facility] VLDL Cholesterol Jd 20.4 mg/dL LAB CHEMISTRY METHOD 01/24/2025 4:34 PM EDT [facility] Non HDL Chol. (LDL+VLDL) 98 <145 mg/dL LAB CHEMISTRY METHOD 01/24/2025 4:34 PM EDT [facility] Chol/HDL Ratio 2.4 0.0 - 4.4 LAB CHEMISTRY METHOD 01/24/2025 4:34 PM EDT [facility] Blood Venous blood specimen / Unknown Venipuncture / Unknown 01/24/2025 11:44 AM EDT 01/24/2025 11:44 AM EDT Braydon CAM LAB BLOOD ORDERABLES Fin al Result [facility] [address] [place] [address], * Vitamin D 25 hydroxy (01/24/2025 11:44 AM EDT) Vit D, 25-Hydroxy 37.6 30.0 - 80.0 ng/mL LAB CHEMISTRY METHOD 01/24/2025 4:39 PM EDT [facility] Blood Venous blood specimen / Unknown Venipuncture / Unknown 01/24/2025 11:44 AM EDT 01/24/2025 11:44 AM EDT Braydon CAM LAB BLOOD ORDERABLES Fin al Result Performing Organization Address [facility]/ZIP Co de Phone Number [facility] [address] [place] [address], [place] [phone] * Thyroid stimulating hormone (01/24/2025 11:44 AM EDT) Pathologist [facility] TSH 0.89 0.40 - 4.00 mcIU/mL LAB CHEMISTRY METHOD 01/24/2025 4:40 PM EDT [facility] Blood Venous blood specimen / Unknown Venipuncture / Unknown 01/24/2025 11:44 AM EDT 01/24/2025 11:44 AM EDT Braydon CAM LAB BLOOD ORDERABLES Fin al Result Performing Organization Address City/[facility]/ZIP Co de Phone Number [facility] [address] [place] [address], [place] [phone] * (ABNORMAL) Comprehensive metabolic panel (01/24/2025 11:44 AM EDT) [facility] Sodium 133 133 - 145 mmol/L LAB CHEMISTRY METHOD 01/24/2025 4:34 PM EDT [facility] Potassium 4.7 3.5 - 5.5 mmol/L LAB CHEMISTRY METHOD 01/24/2025 4:34 PM EDT [facility] Chloride 97 96 - 110 mmol/L LAB CHEMISTRY METHOD 01/24/2025 4:34 PM EDT [facility] CO2 27 21 - 32 mmol/L LAB CHEMISTRY METHOD 01/24/2025 4:34 PM EDT [facility] Anion Gap 9 3 - 11 LAB CHEMISTRY METHOD 01/24/2025 4:34 PM EDT [facility] Glucose 95 70 - 100 mg/dL LAB CHEMISTRY METHOD 01/24/2025 4:34 PM [facility] BUN 16 5 - 25 mg/dL LAB CHEMISTRY METHOD 01/24/2025 4:34 PM [facility] Creatinine 0.77 0.50 - 1.10 mg/dL LAB CHEMISTRY METHOD 01/24/2025 4:34 PM [facility] eGFR 84 >=60 mL/min/1. 73m2 LAB CHEMISTRY METHOD 01/24/2025 4:34 PM [facility] Comment:Calculation based on the??Chronic Kidney Disease Epidemiology Collaboration (CKD-EPI) equation refit??without adjustment for race. BUN/Creatinine Ratio 20.8 LAB CHEMISTRY METHOD 01/24/2025 4:34 PM [facility] Calcium 9.6 8.5 - 10.5 mg/dL LAB CHEMISTRY METHOD 01/24/2025 4:34 PM [facility] AST (SGOT) 19 10 - 42 unit/L LAB CHEMISTRY METHOD 01/24/2025 4:34 PM [facility] ALT (SGPT) 19 10 - 60 unit/L LAB CHEMISTRY METHOD 01/24/2025 4:34 PM [facility] Alkaline Phosphatase 131(H) 42 - 121 unit/L LAB CHEMISTRY METHOD 01/24/2025 4:34 PM [facility] Total Protein 6.9 6.0 - 8.0 g/dL LAB CHEMISTRY METHOD 01/24/2025 4:34 PM [facility] Albumin 3.4 3.2 - 5.0 g/dL LAB CHEMISTRY METHOD 01/24/2025 4:34 PM [facility] Total Bilirubin 0.6 0.0 - 1.4 mg/dL LAB CHEMISTRY METHOD 01/24/2025 4:34 PM [facility] Blood Venous blood specimen / Unknown Venipuncture / Unknown 01/24/2025 11:44 AM EDT 01/24/2025 11:44 AM EDT us Braydon CAM LAB BLOOD ORDERABLES Fin al Result [facility] [address] [place] [address], * CT LUNG SCREENING LOW DOSE (08/15/2024 10:40 AM EDT) Anatomical Region Laterality Modality Computed Tomogra phy 08/12/2024 2:27 PM EDT Narrative 08/15/2024 10:40 AM EDT [facility] Diagnostic Imaging Department [address] [place] [address] Patient: ??RAYA STEINER ?/Age/Sex: 1955 - 69 - Unit#: ??[id number] ? Location/Status: ??SPDICATLS/REG CLI ? Mnemonic/Ordering Site: ??CTLUNGLD/SPCT Ordering Physician: ??DAVID CRUZ MD CT Lung Screening Low Dose - 08/12/24 - [id number] Report Status:Signed INDICATION: Current smoker with 44 pack-year smoking history FINDINGS: Low-dose CT scan of the chest obtained as a lung cancer screening study. Scanner: [employer] speed 64 slice VCT Dose reduction technique: [...] Procedure Note Lawrence Johnston MD - 08/31/2024 [facility] Diagnostic Imaging Department [address] [place] [id number] Patient: STEINERRAYA /Age/Sex: 1955 - 69 - F Unit#: [id number] Location/Status: SPDICATLS/REG CLI Mnemonic/Ordering Site: [facility] Ordering Physician: DAVID CRUZ MD CT Lung Screening Low Dose - 08/12/24 - [id number] Report Status:Signed INDICATION: Current smoker with 44 pack-year smoking history FINDINGS: Low-dose CT scan of the chest obtained as a lung cancerscreening study. Scanner: [employer] speed 64 slice VCT Dose reduction technique: [...] Region Laterality Modality Radiographic Amisha ging 04/30/2023 3:4 5 PM EDT Narrative 05/12/2024 12:02 PM EDT [...] (World Health Organization Fracture Risk Assessment) The [facility] Department of Internal Medicine recommends using [...] alternative screening schedule based on kvng Luong., [facility] December 04, 2011 for patients with [...] years. (World HealthOrganization Fracture Risk Assessment) The [facility] Department of Internal Medicine recommendsusing National [...] alternative screening schedule based on kvng Luong., [facility] for patients with osteopenia (based on hip BMD T-score) is as follows: * advanced osteopenia (T scores -2.00 to -2.49), BMD testing every year * moderate osteopenia (T scores -1.50 to -1.99), BMD testing every 5years mild osteopenia or normal BMD (T scores -1.50 and higher), BMD testingevery 15 years us Braydon CAM IM DXA PROCEDURES Final Result * Colonoscopy (08/10/2019) Colonoscopy no interpreta tion,abstr acted Anatomical Region Laterality Modality Other Historical Provider HEALTH MAINTENANCE Final Result * Hepatitis C Screening (05/16/2013) Hepatitis C Screening abstracted Historical Provider HEALTH MAINTENANCE Final Result from Last 3 Months or Most Recently Relevant to Health Maintenance Insurance [employer] MEDICARE Advance Directives Documents on File Type Date Recorded 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
[2025-03-21 09:49] LABS: Alanine Aminotransferase 19 U/L (0-31); Alkaline Phosphatase 88 U/L (39-117); Anion Gap 12 (12-20); Aspartate Amino Transferase 23 U/L (5-31); Bilirubin Direct 0.1 mg/dL (0.0-0.5); Bilirubin Total 0.3 mg/dL (0.0-1.0); Blood Urea Nitrogen 19 mg/dL (9-16); Calcium 9.3 mg/dL (8.4-10.2); Carbon Dioxide 25 mmol/L (22-29); Chloride 97 mmol/L (96-108); Creatinine Clr Calc Pharmacy 64.5; Estimated Glomerular Filt Rate > 60; Glucose Random 102 mg/dL (60-115); Sodium 129 mmol/L (135-145); Total Protein 6.8 g/dL (6.5-8.0)
[2025-03-21 10:01] LABS: Troponin-I High Sensitivity < 2.7 ng/L (<3.5-17.0)
== END 2025-03-21 11:33 | disposition home or self-care (01) ==
PROVIDERS: Emergency Provider Emergency Medicine Emergency Medical Services; PCP Internal Medicine
DX: R55 Syncope and collapse (principal); S82.61XA Displaced fracture of lateral malleolus of right fibula, initial encounter for closed fracture; S09.90XA Unspecified injury of head, initial encounter; W18.39XA Other fall on same level, initial encounter; E87.1 Hypo-osmolality and hyponatremia; G89.4 Chronic pain syndrome; Z79.891 Long term (current) use of opiate analgesic; I48.0 Paroxysmal atrial fibrillation; Z79.01 Long term (current) use of anticoagulants; I10 Essential (primary) hypertension; F17.210 Nicotine dependence, cigarettes, uncomplicated; Y93.89 Activity, other specified; Y92.512 Supermarket, store or market as the place of occurrence of the external cause; Y99.0 Civilian activity done for income or pay
CPT/HCPCS: 36415; 70450; 71045; 73610; 80048; 80076; 84484; 85025; 85610; 93005; 99284; 99285

== ENCOUNTER → 2025-03-21 08:32 | Outpatient (BNV) | payer OTHER, MEDICARE, SELFPAY | PROVIDERS: Emergency Provider Emergency Medicine Emergency Medical Services; PCP Internal Medicine; Visit Provider Internal Medicine | DX: R00.1 Bradycardia, unspecified (principal) | CPT/HCPCS: 93010 ==

== ENCOUNTER → 2025-03-21 08:50 | Outpatient (BNV) | payer OTHER, MEDICARE, SELFPAY | PROVIDERS: Emergency Provider Emergency Medicine Emergency Medical Services; PCP Internal Medicine; Visit Provider Radiology Diagnostic Radiology | DX: R55 Syncope and collapse (principal); R07.9 Chest pain, unspecified; S82.61XA Displaced fracture of lateral malleolus of right fibula, initial encounter for closed fracture | CPT/HCPCS: 70450; 71045; 73610 ==

== ENCOUNTER 2025-03-30 13:15 | Outpatient (REF) | payer OTHER, MEDICARE, SELFPAY ==
--- NOTE | ~2025-03-30 | XR_ITS ---
EXAMINATION: XR ANKLE, RIGHT CLINICAL INFORMATION: M25.571 - Pain in right ankle and joints of right foot COMPARISON: 03/21/2025. TECHNIQUE: AP, lateral, and mortise views of the right ankle. FINDINGS: There is an oblique fracture of the distal fibular metadiaphysis, extending to the level of the syndesmosis. There is mild posterior lateral displacement of the distal fracture fragment. No additional fractures identified. Fracture line still well visualized, without gross bony callus formation seen. The mortise is intact. The talar dome is normal. The subtalar joints and calcaneus appear normal. There is an ankle joint effusion. Mild improvement in lateral soft tissue swelling. XR/XR ankle RT min 3V IMPRESSION: Stable oblique minimally displaced fracture lateral malleolus. Electronically signed by: Robert Vazquez MD 03/30/2025 04:02 PM EDT
--- OUTSIDE RECORDS SUMMARY | 2025-03-30 14:24 | XMS_ITS | Encounter Summary ---
Author Organization [facility] Address [address] [place] [address] Care Team Providers Care Product Lead Name Role Phone Max George MD Primary Care Provider [phone] Encounter Details Date Type Department Care Team (Late Contact Info) Description 02/27/2025 Telephone Adult [address] [phone] Naima Molina MA Social History Tobacco Use [...] 1:00 PM EDT Office Visit Adult Medicine [address] [phone] Braydon Hunter PA [address] [place] [address] 05/11/2025 2:30 PM EDT Office Visit Adult [address] [phone] Stacey Griffin PA [address] [place] [address] 05/22/2025 1:00 PM EDT Appointment Radiology Department - [address] [phone] 06/02/2025 2:15 PM EDT Office Visit Pulmonolgy - [place] [address] [facility] [address] [place] [address] Julieta Carballo MD 175 [facility] 200 [place] [address] 06/15/2025 11:10 AM EDT Office Visit [facility] - [facility] [address] [place] [address] Judith Wright NP [address] [place] [address] Dr Rashid [address] [place] [address] documented as of this encounter Visit Diagnoses Not on filedocumented in this encounter Additional Health Concerns Assessment Noted Time PHQ-9 Depression Total Score: 0 01/09/20 25 3:23 PM EST A fall risk assessment has been complete d for the patient 01/09/2025 3:22 PM EST documented as of this encounter Care Teams Product Lead Relationship Specialty Start Date End Date Max George MD [address] [place] [phone] PCP - General Internal Medicine 05/08/15 documented as of this encounter
--- OUTSIDE RECORDS SUMMARY | 2025-03-30 14:24 | XMS_ITS | Clinical Summary ---
Author Organization [facility] [employer] [facility] Address [address] [facility] [address] [place] [address] Phone Care Team Providers Care Senior Assistant Manager Name Role Phone Max George MD Primary Care Provider [phone] Allergies No known active allergies Medications atenoloL [...] Problems Problem Noted Date Diagnosed Date A-fib ([facility] V24, [facility] V28) 09/09/2023 Overview (10/19/2024): Last Assessment [...] including palpitations or dizziness. She is a [id number]-KMQs score of 3. She does report over [...] 1 mild COPD by GOLD cl assification ([facility] V24, [facility] V28) 09/09/2023 Overview (10/19/2024): Last Assessment [...] Team Description 03/28/2025 Anticoagulation - Warfarin Visit [facility] Cardiology [facility] [address] [place] [phone] Tyron Chicas MD Atrial fibrillation, unspecified type (CMS/HCC V24, CMS/HCC V28) (Primary Dx) 03/22/2025 Anticoagulation - Warfarin Visit [facility] [address] [facility] [phone] Tyron Chicas MD Atrial fibrillation, unspecified type (CMS/HCC V24, CMS/HCC V28) (Primary Dx) 03/13/2025 Telephone Adult [address] [phone] Max George MD Groin Pain 03/09/2025 11:38 AM EDT - 03/09/2025 11:59 PM EDT Hospital Encounter [address] [phone] Left hip pain Discharge Disposition: Home or Self Care 03/09/2025 11:30 AM EDT Office Visit [address] [phone] Braydon Hunter PA Left hip pain (Primary Dx) 03/03/2025 Anticoagulation - Warfarin Visit [facility] [address] [phone] Tyron Chicas MD Atrial fibrillation, unspecified type (CMS/HCC V24, CMS/HCC V28) (Primary Dx) 02/27/2025 2:00 PM EDT Office Visit [address] [phone] Braydon Hunter PA Encounter for completion of form with patient (Primary Dx); COPD exacerbation (CMS/HCC V24, CMS/HCC V28); Atrial fibrillation, unspecified type (CMS/HCC V24, CMS/HCC V28) 02/27/2025 Telephone Adult [address] [phone] Naima Molina MA 02/17/2025 Anticoagulation - Warfarin Visit [facility] [address] [facility] [address] [phone] Tyron Chicas MD Atrial fibrillation, unspecified type (CMS/HCC V24, CMS/HCC V28) (Primary Dx) 02/10/2025 Anticoagulation - Warfarin Visit [facility] [address] [phone] Tyron Chicas MD Atrial fibrillation, unspecified type (CMS/HCC V24, CMS/HCC V28) (Primary Dx) 02/03/2025 Anticoagulation - Warfarin Visit [facility] [address] [phone] Tyron Chicas MD Atrial fibrillation, unspecified type (CMS/HCC V24, CMS/HCC V28) (Primary Dx) 02/02/2025 Telephone Adult Medicine [address] [phone] Max George MD Forms/questionnaires ([employer] [place]) 01/30/2025 2:00 PM EDT Office Visit [address] [phone] Julieta Carballo MD Chronic obstructive pulmonary disease, unspecified COPD type (CMS/HCC V24, CMS/HCC V28) (Primary Dx); Tobacco abuse 01/30/2025 Anticoagulation - Warfarin Visit [facility] [address] [phone] Tyron Chicas MD Atrial fibrillation, unspecified type (CMS/HCC V24, CMS/HCC V28) (Primary Dx) 01/26/2025 1:30 PM EDT Office Visit [address] [phone] Max George MD COPD exacerbation (CMS/HCC V24, CMS/HCC V28) (Primary Dx); Upper respiratory tract infection, unspecified type; Anxiety; Atrial fibrillation, unspecified type (CMS/HCC V24, CMS/HCC V28); Hypomagnesemia 01/26/2025 8:40 AM EDT Office Visit [facility] [address] [phone] Lisa Jarvis NP Atrial fibrillation, unspecified type (CMS/HCC V24, CMS/HCC V28) (Primary Dx); Hypertension, unspecified type; Mixed hyperlipidemia 01/26/2025 Anticoagulation - Warfarin Visit [facility] [address] [phone] Tyron Chicas MD Atrial fibrillation, unspecified type (CMS/HCC V24, CMS/HCC V28) (Primary Dx) 01/26/2025 Telephone [facility] [phone] Lisa Jarvis NP 01/25/2025 Telephone Adult [address] [phone] Max George MD Hospitalization/ER 01/09/2025 3:00 PM EST Office Visit [address] [phone] Braydon Hunter PA Hypertension, unspecified type (Primary Dx); Atrial fibrillation, unspecified type (CMS/HCC V24, CMS/HCC V28); Vitamin D deficiency; Tubular adenoma from Last 3 Months Immunizations Name Administration Dates Next Due [place] SARS-CoV-2 COVID-19, mRNA, LNP-S, preservative free 07/05/2021,06/20/2021 Td Tetanus diptheria (Tdvax) 7yo and older 04/27 Tdap Tetanus diptheria acell ular pertussis (Boostrix; Adacel) 7yo and older 03/13/2008 Surgical History Surgery Date Site/Laterality Comments KNEE SURGERY Left PROCEDURE: HISTORICAL KNEE SURGERY APPENDECTOMY PROCEDURE: HISTORICAL APPENDECTOMY COLONOSCOPY 03/12/2017 PROCEDURE: HISTORICAL COLONOSCOPY; COMMENT: normal; repeat in 10 yrs UPPER GASTROINTESTINAL ENDOSCOPY 08/10/2019 PROCEDURE: DE UPPER GI ENDOSCOPY PERFORMED; COMMENT: Normal; duodenal [...] 1:00 PM EDT Office Visit Adult Medicine [address] [phone] Braydon Hunter PA [address] [place] [address] 05/11/2025 2:30 PM EDT Office Visit Adult Medicine [address] [place] [phone] Stacey Griffin PA [address] [place] [address] 05/22/2025 1:00 PM EDT Appointment Radiology Department - [address] [phone] 06/02/2025 2:15 PM EDT Office Visit Pulmonolgy - [place] [facility] [phone] Julieta Carballo MD 175 [facility] 200 [address] 06/15/2025 11:10 AM EDT Office Visit [facility] - [facility] [address] [place] [phone] Judith Wright NP [address] [place] [address] Dr Rashid [address] [place] [address] Health Maintenance Due Date Last Done Comments [...] LAB COAGULATION METHOD 03/27/2025 4:44 PM EDT [facility] INR 2.0 LAB COAGULATION METHOD 03/27/2025 4:44 PM EDT [facility] Blood Venous blood specimen / Unknown Venipuncture / Unknown 03/27/2025 1:36 PM EDT 03/27/2025 1:36 PM EDT Tyron Chicas MD LAB BLOOD ORDERABLES F inal Result [facility] [address] [place] [address], [place] [phone] * External clinical lab (03/21/2025 11:22 AM [...] is included. WBC 11.5(H) 4.8 - 10.8 K/[facility] LAB HEMETOLOGY METHOD 03/09/2025 3:00 PM EDT [facility] RBC 4.90(H) 3.80 - 4.80 M/[facility] LAB HEMETOLOGY METHOD 03/09/2025 3:00 PM EDT [facility] Hemoglobin 15.0 11.5 - 16.0 g/dL LAB HEMETOLOGY METHOD 03/09/2025 3[facility] Hematocrit 44.6 35.0 - 47.0 % LAB HEMETOLOGY METHOD 03/09/2025 3:00 PM [facility] MCV 92.0 79.0 - 98.0 FL LAB HEMETOLOGY METHOD 03/09/2025 3:00 PM [facility] MCH 30.9 27.0 - 32.0 pcg LAB HEMETOLOGY METHOD 03/09/2025 3:00 PM [facility] MCHC 33.6 32.0 - 37.0 g/dL LAB HEMETOLOGY METHOD 03/09/2025 3:00 PM [facility] RDW 15.4(H) 11.0 - 15.0 % LAB HEMETOLOGY METHOD 03/09/2025 3:00 PM [facility] Platelets 298 130 - 400 K/mcL LAB HEMETOLOGY METHOD 03/09/2025 3:00 PM [facility] MPV 9.7 7.0 - 11.0 FL LAB HEMETOLOGY METHOD 03/09/2025 3:00 PM [facility] NRBC 0.0 <1.0 % LAB HEMETOLOGY METHOD 03/09/2025 3:00 PM [facility] NRBC Absolute 0.00 <0.10 K/mcL LAB HEMETOLOGY METHOD 03/09/2025 3:00 PM [facility] Blood Venous blood specimen / Unknown Venipuncture / Unknown 03/09/2025 12:39 PM EDT 03/09/2025 12:39 PM EDT us Braydon CAM LAB BLOOD ORDERABLES Fin al Result Performing Organization Address [facility]/ZIP Co de Phone Number [facility] [address] [place] [address], * (ABNORMAL) C-reactive protein (03/09/2025 12:39 PM EDT) [facility] C-Reactive Protein 0.87(H) <=0.50 mg/dL LAB CHEMISTRY METHOD 03/09/2025 5:36 PM EDT [facility] Blood Venous blood specimen / Unknown Venipuncture / Unknown 03/09/2025 12:39 PM EDT 03/09/2025 12:39 PM EDT Braydon CAM LAB BLOOD ORDERABLES Fin al Result Performing Organization Address [facility] Co de Phone Number [facility] [address] [place] [address], * (ABNORMAL) Basic metabolic panel (03/09/2025 12:39 PM EDT) [facility] Sodium 131(L) 133 - 145 mmol/L LAB CHEMISTRY METHOD 03/09/2025 5:36 PM [facility] Potassium 5.0 3.5 - 5.5 mmol/L LAB CHEMISTRY METHOD 03/09/2025 5:36 PM [facility] Chloride 102 96 - 110 mmol/L LAB CHEMISTRY METHOD 03/09/2025 5:36 PM T [facility] CO2 25 21 - 32 mmol/L LAB CHEMISTRY METHOD 03/09/2025 5:36 PM [facility] Anion Gap 4 3 - 11 LAB CHEMISTRY METHOD 03/09/2025 5:36 PM [facility] Glucose 97 70 - 100 mg/dL LAB CHEMISTRY METHOD 03/09/2025 5:36 PM [facility] BUN 13 5 - 25 mg/dL LAB CHEMISTRY METHOD 03/09/2025 5:36 PM EDT [facility] Creatinine 0.82 0.50 - 1.10 mg/dL LAB CHEMISTRY METHOD 03/09/2025 5:36 PM EDT [facility] eGFR 78 >=60 mL/min/1. 73m2 LAB CHEMISTRY METHOD 03/09/2025 5:36 PM EDT [facility] Comment:Calculation based on the??Chronic Kidney Disease Epidemiology Collaboration (CKD-EPI) equation refit??without adjustment for race. BUN/Creatinine Ratio 15.9 LAB CHEMISTRY METHOD 03/09/2025 5:36 PM EDT [facility] Calcium 10.2 8.5 - 10.5 mg/dL LAB CHEMISTRY METHOD 03/09/2025 5:36 PM EDT [facility] Blood Venous blood specimen / Unknown Venipuncture / Unknown 03/09/2025 12:39 PM EDT 03/09/2025 12:39 PM EDT us Braydon CAM LAB BLOOD ORDERABLES Fin al Result [facility] [address] [place] [address], * XR Hip 2-3 Views Left (03/09/2025 [...] Signed Date: 03/09/2025 12:06 ET Workstation ID: [id number] Transcribed By: Self Edit Transcribed Date: 03/09/2025 [...] Signed Date: 03/09/2025 12:06 ET Workstation ID: [id number] Transcribed By: Self Edit Transcribed Date: 03/09/2025 12:05 ET us Braydon CAM IMG XR PROCEDURES Final Result * (ABNORMAL) Magnesium (01/30/2025 9:11 AM EDT) Only the most recent of2 resultswithin the time period is included. Magnesium 1.8(L) 1.9 - 2.6 mg/dL LAB CHEMISTRY METHOD 01/30/2025 12:58 PM EDT [facility] Blood Venous blood specimen / Unknown Venipuncture / Unknown 01/30/2025 9:11 AM EDT 01/30/2025 9:11 AM EDT Max George MD LAB BLOOD ORDERABLES Final Resul t [facility] [address] [place] [address], * ECG 12 lead (01/26/2025 9:20 AM EDT) Ventricular Rate ECG 50 BPM GEMUSE Atrial Rate 50 BPM GEMUSE P-R Interval 160 ms GEMUSE QRS Duration 70 ms GEMUSE Q-T Interval 440 ms GEMUSE QTc 401 ms GEMUSE P Wave [place] 76 degrees GEMUSE R [place] 0 degrees GEMUSE T [place] 76 degrees GEMUSE ECG Interpretation Sinus bradycardia Otherwise normal ECG When compared with ECG of 08-AUG-2023 08:06, Sinus rhythm has replaced Atrial fibrillation Vent. rate has decreased BY ??72 BPM Nonspecific T wave abnormality no longer evident in Anterolateral leads Confirmed by TYRON CHICAS ([id number]) on 01/26/2025 9:25:30 AM GEMUSE 01/26/2025 8:36 AM EDT 01/26/2025 9:25 AM EDT Lisa Jarvis [employer] ECG ORDERABLES Edited Resu lt - Final [place] * Lipid panel with reflex to direct LDL (01/24/2025 11:44 AM EDT) Pathologist [facility] Cholesterol 168 0 - 200 mg/dL LAB CHEMISTRY METHOD 01/24/2025 4:34 PM EDT [facility] Triglycerides 102 0 - 150 mg/dL LAB CHEMISTRY METHOD 01/24/2025 4:34 PM EDT [facility] HDL 70 >=40 mg/dL LAB CHEMISTRY METHOD 01/24/2025 4:34 PM EDT [facility] LDL Calculated 78 0 - 100 mg/dL LAB CHEMISTRY METHOD 01/24/2025 4:34 PM EDT [facility] VLDL Cholesterol Jd 20.4 mg/dL LAB CHEMISTRY METHOD 01/24/2025 4:34 PM EDT [facility] Non HDL Chol. (LDL+VLDL) 98 <145 mg/dL LAB CHEMISTRY METHOD 01/24/2025 4:34 PM EDT [facility] Chol/HDL Ratio 2.4 0.0 - 4.4 LAB CHEMISTRY METHOD 01/24/2025 4:34 PM EDT [facility] Blood Venous blood specimen / Unknown Venipuncture / Unknown 01/24/2025 11:44 AM EDT 01/24/2025 11:44 AM EDT Braydon CAM LAB BLOOD ORDERABLES Fin al Result Performing Organization Address City/[facility]/ZIP Co de Phone Number [facility] [address] [place] [address], [place] [phone] * Vitamin D 25 hydroxy (01/24/2025 11:44 AM EDT) Vit D, 25-Hydroxy 37.6 30.0 - 80.0 ng/mL LAB CHEMISTRY METHOD 01/24/2025 4:39 PM EDT [facility] Blood Venous blood specimen / Unknown Venipuncture / Unknown 01/24/2025 11:44 AM EDT 01/24/2025 11:44 AM EDT Braydon CAM LAB BLOOD ORDERABLES Fin al Result Performing Organization Address City/[facility]/ZIP Co de Phone Number [facility] [address] [place] [address], [place] [phone] * Thyroid stimulating hormone (01/24/2025 11:44 AM EDT) TSH 0.89 0.40 - 4.00 mcIU/mL LAB CHEMISTRY METHOD 01/24/2025 4:40 PM EDT [facility] Blood Venous blood specimen / Unknown Venipuncture / Unknown 01/24/2025 11:44 AM EDT 01/24/2025 11:44 AM EDT us Braydon CAM LAB BLOOD ORDERABLES Fin al Result [facility] [address] [place] [address], * (ABNORMAL) Comprehensive metabolic panel (01/24/2025 11:44 AM EDT) Sodium 133 133 - 145 mmol/L LAB CHEMISTRY METHOD 01/24/2025 4:34 PM EDT [facility] Potassium 4.7 3.5 - 5.5 mmol/L LAB CHEMISTRY METHOD 01/24/2025 4:34 PM [facility] Chloride 97 96 - 110 mmol/L LAB CHEMISTRY METHOD 01/24/2025 4:34 PM [facility] CO2 27 21 - 32 mmol/L LAB CHEMISTRY METHOD 01/24/2025 4:34 PM [facility] Anion Gap 9 3 - 11 LAB CHEMISTRY METHOD 01/24/2025 4:34 PM [facility] Glucose 95 70 - 100 mg/dL LAB CHEMISTRY METHOD 01/24/2025 4:34 PM [facility] BUN 16 5 - 25 mg/dL LAB CHEMISTRY METHOD 01/24/2025 4:34 PM [facility] Creatinine 0.77 0.50 - 1.10 mg/dL LAB CHEMISTRY METHOD 01/24/2025 4:34 PM [facility] eGFR 84 >=60 mL/min/1. 73m2 LAB CHEMISTRY METHOD 01/24/2025 4:34 PM [facility] Comment:Calculation based on the??Chronic Kidney Disease Epidemiology Collaboration (CKD-EPI) equation refit??without adjustment for race. BUN/Creatinine Ratio 20.8 LAB CHEMISTRY METHOD 01/24/2025 4:34 PM [facility] Calcium 9.6 8.5 - 10.5 mg/dL LAB CHEMISTRY METHOD 01/24/2025 4:34 PM EDT [facility] AST (SGOT) 19 10 - 42 unit/L LAB CHEMISTRY METHOD 01/24/2025 4:34 PM EDT [facility] ALT (SGPT) 19 10 - 60 unit/L LAB CHEMISTRY METHOD 01/24/2025 4:34 PM EDT [facility] Alkaline Phosphatase 131(H) 42 - 121 unit/L LAB CHEMISTRY METHOD 01/24/2025 4:34 PM EDT [facility] Total Protein 6.9 6.0 - 8.0 g/dL LAB CHEMISTRY METHOD 01/24/2025 4:34 PM EDT [facility] Albumin 3.4 3.2 - 5.0 g/dL LAB CHEMISTRY METHOD 01/24/2025 4:34 PM EDT [facility] Total Bilirubin 0.6 0.0 - 1.4 mg/dL LAB CHEMISTRY METHOD 01/24/2025 4:34 PM EDT [facility] Blood Venous blood specimen / Unknown Venipuncture / Unknown 01/24/2025 11:44 AM EDT 01/24/2025 11:44 AM EDT us Braydon CAM LAB BLOOD ORDERABLES Fin al Result [facility] [address] [place] [address], * CT LUNG SCREENING LOW DOSE (08/15/2024 10:40 AM EDT) Anatomical Region Laterality Modality Computed Tomogra phy 08/12/2024 2:27 PM EDT Narrative 08/15/2024 10:40 AM EDT [facility] Diagnostic Imaging Department [address] [place] [address] Patient: ??RAYA STEINER ?/Age/Sex: 1955 - 69 - F Unit#: ??[id number] ? Location/Status: ??SPDICATLS/REG CLI ? Mnemonic/Ordering Site: ??CTLUNGLD/SPCT Ordering Physician: ??DAVID CRUZ MD CT Lung Screening Low Dose - 08/12/24 - [id number] Report Status:Signed INDICATION: Current smoker with 44 pack-year smoking history FINDINGS: Low-dose CT scan of the chest obtained as a lung cancer screening study. Scanner: [employer] speed 64 slice VCT Dose reduction technique: [...] Procedure Note Lawrence Johnston MD - 08/31/2024 [facility] Diagnostic Imaging Department [address] [place] [address] Patient: RAYA STEINER /Age/Sex: 1955 - 69 - F Unit#: [id number] Location/Status: [facility] Mnemonic/Ordering Site: [facility] Ordering Physician: DAVID CRUZ MD CT Lung Screening Low Dose - 08/12/24 - [id number] Report Status:Signed INDICATION: Current smoker with 44 pack-year smoking history FINDINGS: Low-dose CT scan of the chest obtained as a lung cancerscreening study. Scanner: [employer] speed 64 slice VCT Dose reduction technique: [...] (World Health Organization Fracture Risk Assessment) [facility] Department of Internal Medicine recommends using National [...] alternative screening schedule based on kvng Luong., [facility] December 04, 2011 for [...] years. (World HealthOrganization Fracture Risk Assessment) [facility] Department of Internal Medicine recommendsusing National Osteoporosis [...] DXA PROCEDURES Final Result * Colonoscopy (08/10/2019) [facility] Colonoscopy no interpreta tion,abstr acted Anatomical Region Laterality Modality Other Historical Provider HEALTH MAINTENANCE Final Result * Hepatitis C Screening (05/16/2013) [facility] Hepatitis C Screening abstracted 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
--- OUTSIDE RECORDS SUMMARY | 2025-03-30 14:24 | XMS_ITS | Encounter Summary ---
Author Organization [facility] Address [address] [place] [address] Care Team Providers Care Renewals Specialist Name Role Phone Max George MD Primary Care Provider [phone] Encounter Details Date Type Department Care Team (Latest Contact Info) Description 03/28/2025 Anticoagulation - Warfarin Visit [facility] Cardiology Associates [facility] [address] [place] [address] [place] [phone] Irving Chicas MD [address] [place] [address] Dr Mike [address] [place] [address] Atrial fibrillation, unspecified type (CMS/HCC V24, CMS/HCC [...] 1:00 PM EDT Office Visit Adult Medicine [address] [phone] Braydon Hunter PA [address] [place] [address] 05/11/2025 2:30 PM EDT Office Visit Adult Medicine [address] [phone] Stacey Griffin PA [address] [place] [address] 05/22/2025 1:00 PM EDT Appointment Radiology Department [address] [phone] 06/02/2025 2:15 PM EDT Office Visit Pulmonolgy [facility] [address] [phone] Julieta Carballo MD [address] [address] 06/15/2025 11:10 AM EDT Office Visit [facility] - [facility] [address] [place] [address] [place] [phone] Judith Wright NP [address] [place] [address] [address] [place] [address] documented as of this encounter Visit Diagnoses [...] documented as of this encounter Care Teams Renewals Specialist Relationship Specialty Start Date End Date Max George MD [address] [place] [address] PCP - General Internal Medicine 05/08/15 documented as of this encounter
== END 2025-03-30 13:16 | disposition home or self-care (01) ==
LOC: HO.HOSX 13:15
PROVIDERS: PCP Internal Medicine; Visit Provider Physician Assistant
DX: S82.831A Other fracture of upper and lower end of right fibula, initial encounter for closed fracture (principal); W18.39XA Other fall on same level, initial encounter; Y93.9 Activity, unspecified; Y92.512 Supermarket, store or market as the place of occurrence of the external cause; Y99.0 Civilian activity done for income or pay
CPT/HCPCS: 73610; 99202

== ENCOUNTER 2025-03-30 13:15 | Outpatient (AMB) | payer OTHER, SELFPAY ==
[2025-03-30 13:28] VITALS: BMI 21.6
--- NOTE | 2025-03-30 13:28 | A.OFFVIS_ITS ---
Vital Signs 03/30/25 13:28 Height 5 ft 5 in Weight 130 lb BMI 21.6 Intake Visit Reasons: ED f/u RT Fibula fracture Intake Note: Raya is a 69 year old female who presents today for an ER follow up of right fibula fracture, DOI 03/21/25. 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 She was brought to [facility] ER by ambulance where x-rays were taken and placed in a walking boot. Today patient reports next steps and when she can get back to doing things. Accompanied by: Daughter Allergies No Known Allergies Allergy (Verified 03/30/25 13:33) HPI HPI ED f/u RT Fibula fracture: Details: 69-year-old female presents to the office today for an injury she sustained to her right ankle on 03/21/2025 while at work. She works at [employer] at a [email or web address] and states she felt lightheaded and went to go sit down but she ended up falling. She was seen in the emergency department where x-rays were obtained and significant for a minimally displaced distal fibular fracture. She was placed in a short boot and referred to our office for ortho eval. [facility] Medical History COPD (chronic obstructive pulmonary disease) Smoker unmotivated to quit Essential hypertension Social History Household Members: None Housing: Apartment Do you presently have visiting nurse or other home services: No Patient Tobacco Use Status: Current everyday Tobacco user Tobacco use type: Cigarette Cigarette Packs Per Day: 0.5 Cigarettes Per Day: 10.0 Years Smoked: 30 Substance Use Type: Marijuana service: No Review of Systems Const All systems reviewed & are unremarkable except as noted in HPI and below Physical Exam Vital Signs: BMI result Body Mass Index 21.6 Const General: cooperative and no acute distress Orientation/consciousness: patient oriented x3 Resp Effort & Inspection: normal respiratory effort and able to speak in complete sentences Cardio Peripheral pulses: Peripheral pulses 2+ throughout Neuro General: patient oriented x3 Extrem Other: Right ankle is normal to inspection. She does have diffuse swelling throughout the ankle and foot with ecchymosis. She has mild tenderness over the distal fibula. Pulses are present and sensation is intact. Office Procedures AMB Fracture Care Fracture Billing Code: Fracture Billing Code Results Reviewed Results Reviewed: X-rays of the right ankle obtained in the office today and reviewed by me show distal fibular fracture with intact ankle mortise. Assessment & Plan Assessment & Plan (1) Closed fracture of right distal fibula: Code(s): S82.831A - Other fracture of upper and lower end of right fibula, initial encounter for closed fracture Category: Medical Plan: Patient was placed in a tall boot in the office today. The boot she received in the emergency department is not the appropriate boot for this injury. She can weightbear as tolerated however I did explain that she can only weightbear when she is in the boot. She can remove the boot for icing and hygiene. She has to sleep in the boot. I did educate her on strict elevation. I have prescribed her a prescription of oxycodone to help with her discomfort and I will see her back in 4 weeks with x-rays sooner if needed. She will remain out of work until next appointment. Orders: Orders XR ankle RT min 3V Today M25.571 - Pain in right ankle and joints of right foot Medications: New oxycodone Partial Fill upon patient request. 5 mg PO Q6H PRN 42 tabs 0RF pain 7 days Coding Level of Care Code New Pt Level 3 (10613) Complex EM visit Add On G2211 Diagnoses Closed fracture of right distal fibula S82.831A CPT Codes Fracture Care - Fracture Billing Code: Fracture Billing Code ([id number])
--- OUTSIDE RECORDS SUMMARY | 2025-03-30 13:49 | XMS_ITS | Data Portability ---
Author Organization [place] - [facility], Allergy Address [address] [place] [address] Care Team Providers Care Assistant Project Engineer Name Role Phone KEHINDE FLETCHER Primary Care [...] Patient was provided with a referral to [facility] for Marbin maneuvers and vestibular therapy.? [...] Therapy - Teodoro - Joo Funk, [address] [facility] , Rashid Lange, [place], [address], 01/22/202 5 10:19:04 Procedures None recorded. 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 22777840 Active 2016 Otosclero sis involving oval window, nonoblite rative, right ear; Note: Changed from H80.91 to H80.01 (09/25/20 17 1:34 PM) , Date Diagnosed : 05/15/2017 10:44 AM (H80.91) Otoscle rosis involving oval window, nonoblite rative, left ear; Note: Date Diagnosed : 05/15/2017 10:44 AM (H80.02) Not Available [facility] 4 02:26:17 Mixed conductiv e and sensorine ural hearing loss, bilateral 131674826 Active 2017 Mixed conductiv e and sensorine ural hearing loss, bilateral ; Note: Date Diagnosed : 11/26/2017 2:33 PM (H90.6) Mixed conductiv e and sensorine ural hearing loss, bilateral ; Note: Date Diagnosed : 02/05/2017 2:25 PM (H90.6) ; Start Date : 7 Not Available [facility] 4 02:25:49 Tobacco user 464607509 Active 2016 Tobacco use NOS; Note: Date Diagnosed : 02/05/2017 2:26 PM (Z72.0) Not Available [facility] 4 02:26:04 Mixed conductiv e and sensorine ural hearing loss of right ear 44698911771 105 Active 2016 Mixed conductiv e and sensorine ural hearing loss, unilatera l, right ear with restricte d hearing on the contralat eral side; Note: Date Diagnosed : 07/16/2017 3:45 PM (H90.A31) Not Available [facility] 4 02:25:54 Otosclero sis 53095779 Active 2016 Unspecifi ed otosclero sis, bilateral ; Note: Date Diagnosed : 02/05/2017 2:25 PM (H80.93) Not Available [facility] 4 02:25:52 Sensorine ural hearing loss in left ear 21313001450 109 Active 2016 Sensorine ural hearing loss, unilatera l, left ear, with restricte d hearing on the contralat eral side; Note: Date Diagnosed : 07/16/2017 3:46 PM (H90.A22) Not Available [facility] 4 02:26:02 Sensorine ural hearing loss of bilateral ears 239788819 Active 2021 Sensorine ural hearing loss, bilateral ; Note: Date Diagnosed : 09/19/2022 4:14 PM (H90.3) Not Available [facility] 4 02:26:11 Follow-up visit Active 2016 Medical surveilla nce following completed treatment ; Note: Date Diagnosed : 7 10:48 AM (Z09) Medical surveilla nce following completed treatment ; Note: Date Diagnosed : 05/22/2017 1:36 PM (Z09) ; Start Date : 07/07/201 7 Not Available [facility] 4 02:26:05 Mixed conductiv e and sensorine ural hearing loss of left ear 34908194714 107 Active 2021 Mixed conductiv e and sensorine ural hearing loss, unilatera l, left ear with restricte d hearing on the contralat eral side; Note: Date Diagnosed : 08/21/2022 11:55 AM (H90.A32) Not Available [facility] 4 02:25:53 Vertigo 200470571 Active 2024 RAYA TYLER MA, CCC-A [address],RASH[address] [facility], [place], [address] , [facility] - [facility] 5 10:47:35 Benign paroxysma l positiona l vertigo 257480230 Active 2024 GRACE HUYNH PA-C [address],[facility] [address], [place], [address] , [facility] - [facility] 5 11:23:15 Problem Notes None recorded. Procedures Surgical History Date Name Laterality Status Provider Name and Address Organization Details Recorded Time 12/01/2024 Comp Audio with Tymps - 04612 & 27338 completed RAYA TYLER MA, CCC-A [address], [place], [address], [facility] - [facility] 12/01/2024 10:44:24 Imaging Results Imaging Date Name [...] mg tablet 2021 active Medicati on ID: 513813 D uration Value: 14 Brand Name: predniso [...] mg tablet 2016 active Medicati on ID: 307987 D uration Value: 30 Brand Name: meloxica [...] eye drops 10/16 completed Medicati on ID: 589869 D uration Value: 5 Prescri bed By [...] mg tablet 2016 active Medicati on ID: 081349 D uration Value: 15 Brand Name: trazodon [...] Not Available Not Available No t Available [place] 5 mg-325 mg tablet 1-2 tablet by mouth 2016 active Medicati on ID: 859899 D uration Value: 7 Prescri bed By Name: Yesy Juarez M.D. Bra nd Name: Jasmyne Se nd Method: E-Prescr ibed Sub s Allowed: subs OK Medic ationGen ericName : [place] Not Available Not Available Not Available lisinopri l 40 mg tablet TAKE 1 TABLET BY MOUTH DAILY active Not Available Not Available No t Available sertralin e 50 mg tablet 2016 active Medicati on ID: 702554 D uration Value: 30 Brand Name: sertrali [...] SNOMED-CT Code Diagnosis ICD10 Code Diagnosis Note [id number] GRACE HUYNH PA-C [facility] [address] [place] [address] 12/01/2024 10:07:13 12/01/2024 11:23:18 Nonobliterative otosclerosis involving oval window [id number] H80.01 H80.02 Sensorineu ral hearing loss in right ear 1435370337 9100 H90.A21 Audiologic al evaluation results: Right [...] hermetic seal}} Benign par oxysmal positional vertigo [id number] H81.13 Health Concerns Section Related Observation LastModified by Organization Detai ls LastModified Time None Recorded Concern Status LastModified by Organization Details LastModified Time None Recorded Advance Directives Directive None Recorded Payers Insurance Date Sequence Insurance Name Policy Number Policy Tran Covered Member ID Tran Member ID Guarantor Name 11/30/2024 2 [place] [facility] Raya Soler [id number] Raya Ryder 12/01/2024 1 [facility] (MEDICARE REPLACEMENT/ ADVANTAGE - PPO) [id number] Raya Saeed Soler [id number] Raya Soler Notes Date Note Type Note [...] 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 Episodes last up to an hour. Patient denies associated confusion, slurred speech, facial or extremity weakness, numbness, headache, chest pain, heart palpitations, or vision change. Denies change in hearing, tinnitus, or otalgia. She does have a tremor. Smoker. YESY JUAREZ MD [address] [place] [address], [phone], [facility] - [facility] 12/02/2024 07:33:25 OBGyn Episode No OBEpisode recorded.
--- OUTSIDE RECORDS SUMMARY | 2025-03-30 13:49 | XMS_ITS | Encounter Summary ---
Author Organization [facility] Address [address] [place] [address] Care Team Providers Care Co Chairman Name Role Phone Max George MD Primary Care Provider [phone] Encounter Details Date Type Department Care Team (Latest Contact Info) Description 03/28/2025 Anticoagulation - Warfarin Visit [facility] [address] [place] [address] [place] [phone] Irving Chicas MD [address] [place] [address] Dr Mike [address] [place] [address] Atrial fibrillation, unspecified type (CMS/HCC V24, CMS/HCC V28) (Primary Dx) Social History Tobacco Use Types Packs/Day Years [...] as of this encounter Progress Notes * Norm June MA - 03/28/2025 9:30 AM EDT Patient aware of instructions documented in this encounter Plan of Treatment Upcoming Encounters Date Type Department Care Team (Late st Contact Info) Description 04/04/2025 1:00 PM EDT Office Visit Adult Medicine [address] [phone] Braydon Hunter PA [address] [place] [address] 05/11/2025 2:30 PM EDT Office Visit Adult Medicine [address] [phone] Stacey Griffin PA [address] [place] [address] 05/22/2025 1:00 PM EDT Appointment Radiology Department [address] [phone] 06/02/2025 2:15 PM EDT Office Visit Pulmonolgy [facility] [address] [phone] Julieta Carballo MD [address] [address] 06/15/2025 11:10 AM EDT Office Visit [facility] - [facility] [address] [place] [address] [place] [phone] Judith Wright NP [address] [place] [address] [address] [place] [address] documented as of this encounter Visit Diagnoses Diagnosis Atrial fibrillation, unspecified type (CMS/HCC V24, CMS/HCC V28)- Primary Encounter for screening mammogram for breast cancer documented in this encounter Additional Health Concerns Assessment Noted Time PHQ-9 Depression Total Score: 0 01/09/20 3:23 PM EST A fall risk assessment has been complete d for the patient 01/09/2025 3:22 PM EST documented as of this encounter Care Teams Co Chairman Relationship Specialty Start Date End Date Max George MD [address] [place] [address] PCP - General Internal Medicine 05/08/15 documented as of this encounter
--- OUTSIDE RECORDS SUMMARY | 2025-03-30 13:49 | XMS_ITS | Encounter Summary ---
Author Organization [facility] Address [address] [place] [address] Care Team Providers Care Development Intern Name Role Phone Max George MD Primary Care Provider Encounter Details Date Type Department Care Team (Late Contact Info) Description 02/27/2025 Telephone Adult [address] [phone] Naima Molina [place] Social History Tobacco Use [...] Department Care Team (Late Contact Info) Description 04/04/2025 1:00 PM EDT Office Visit Adult Medicine [address] [phone] Braydon Hunter PA [address] [place] [address] 05/11/2025 2:30 PM EDT Office Visit Adult [address] [phone] Stacey Griffin PA [address] [place] [address] 05/22/2025 1:00 PM EDT Appointment Radiology Department - [address] [phone] 06/02/2025 2:15 PM EDT Office Visit Pulmonolgy - [place] [facility] [address] [place] [address] Julieta Carballo MD 175 [facility] [address] [place] [address] 06/15/2025 11:10 AM EDT Office Visit [facility] - [facility] [address] [place] [address] Judith Wright NP [address] [place] [address] Dr [address] [place] [address] documented as of this encounter Visit Diagnoses Not on filedocumented in this encounter Additional Health Concerns Assessment Noted Time PHQ-9 Depression Total Score: 0 01/09/20 25 3:23 PM EST A fall risk assessment has been complete d for the patient 01/09/2025 3:22 PM EST documented as of this encounter Care Teams Development Intern Relationship Specialty Start Date End Date Max George MD [address] [place] [address] PCP - General Internal Medicine 05/08/15 documented as of this encounter
--- OUTSIDE RECORDS SUMMARY | 2025-03-30 13:49 | XMS_ITS | Clinical Summary ---
Author Organization [facility] [employer] [facility] Address [address] [facility] [address] [place] [address] Phone Care Team Providers Care Track Inspecting Supervisor Name Role Phone Max George MD Primary Care Provider [phone] Allergies No known active allergies Medications atenoloL (TENORMIN) 25 mg tablet Take 1.5 tablets (37.5 mg total) by mouth 1 (one) time each day. 4 Active cyanocobalamin (VITAMIN B-12) 1,000 mcg tablet Take 1 tablet (1,000 mcg total) by mouth 1 (one) time each day. 4 Active lisinopril (PRINIVIL,ZEST RIL) 40 mg tablet Take 1 tablet (40 mg total) by mouth 1 (one) time each day. 4 Active primidone (MYSOLINE) 50 mg tablet Take 1 tablet (50 mg total) by mouth 3 (three) times a day. 3 Active albuterol HFA (PROAIR HFA ; PROVENTIL HFA ; VENTOLIN HFA) 90 mcg/actuation inhaler Inhale 2 puffs by mouth every 6 (six) hours if needed for wheezing. 6.7 g 11 5 12/12/19 26 Active cholecalcifero l (VITAMIN D-3) 25 mcg (1,000 unit) tablet Take 1 tablet (1,000 Units total) by mouth 1 (one) time each day. Active warfarin (COUMADIN) 5 mg tablet Take 1-2 tablets daily as directed by PVCA 60 tablet 6 5 Active betamethasone, augmented, (DIPROLENE-AF) 0.05 % cream Apply topically 2 (two) times a day. 30 g 1 5 Active pravastatin (PRAVACHOL) 20 mg tablet Take 1 tablet (20 mg total) by mouth 1 (one) time each day. 90 tablet 1 5 Active predniSONE (DELTASONE) 10 mg tablet Take 2 tabs PO daily for 3 days then 1 tab PO daily for 4 days 10 tablet 5 Active pravastatin (PRAVACHOL) 20 mg tablet TAKE 1 TABLET BY MOUTH DAILY 90 tablet 1 5 03/03/20 25 Discontinue d(Reorder) oxyCODONE (ROXICODONE) 5 mg immediate release tablet Take 1 tablet (5 mg total) by mouth every 6 (six) hours if needed for severe pain for up to 3 days. Max Daily Amount: 20 mg 12 tablet 5 03/12/20 25 Active Problems Problem Noted Date Diagnosed Date A-fib ([facility] V24, [facility] V28) 09/09/2023 Overview (10/19/2024): Last Assessment & [...] including palpitations or dizziness. She is a [id number] score of 3. She does report over [...] 1 mild COPD by GOLD cl assification ([facility] V24, [facility] V28) 09/09/2023 Overview (10/19/2024): Last Assessment & [...] Encounters Date Type Department Care Team Description 03/28/2025 Anticoagulation - Warfarin Visit [facility] [address] [place] [address] [place] [address] Tyron Chicas MD Atrial fibrillation, unspecified type (CMS/HCC V24, CMS/HCC V28) (Primary Dx) 03/22/2025 Anticoagulation - Warfarin Visit [facility] [address] [facility] [address] [place] [phone] Tyron Chicas MD Atrial fibrillation, unspecified type (CMS/HCC V24, CMS/HCC V28) (Primary Dx) 03/13/2025 Telephone Adult [address] [phone] Max George MD Groin Pain 03/09/2025 11:38 AM EDT - 03/09/2025 11:59 PM EDT Hospital Encounter [address] [phone] Left hip pain Discharge Disposition: Home or Self Care 03/09/2025 11:30 AM EDT Office Visit [address] [phone] Braydon Hunter PA Left hip pain (Primary Dx) 03/03/2025 Anticoagulation - Warfarin Visit [facility] [address] [place] [address] Tyron Chicas MD Atrial fibrillation, unspecified type (CMS/HCC V24, CMS/HCC V28) (Primary Dx) 02/27/2025 2:00 PM EDT Office Visit [address] [phone] Braydon Hunter PA Encounter for completion of form with patient (Primary Dx); COPD exacerbation (CMS/HCC V24, CMS/HCC V28); Atrial fibrillation, unspecified type (CMS/HCC V24, CMS/HCC V28) 02/27/2025 Telephone Adult [address] [phone] Naima Molina MA 02/17/2025 Anticoagulation - Warfarin Visit [facility] [address] [place] [address] Tyron Chicas MD Atrial fibrillation, unspecified type (CMS/HCC V24, CMS/HCC V28) (Primary Dx) 02/10/2025 Anticoagulation - Warfarin Visit [facility] [address] [place] [address] Tyron Chicas MD Atrial fibrillation, unspecified type (CMS/HCC V24, CMS/HCC V28) (Primary Dx) 02/03/2025 Anticoagulation - Warfarin Visit [facility] [address] [place] [address] Tyron Chicas MD Atrial fibrillation, unspecified type (CMS/HCC V24, CMS/HCC V28) (Primary Dx) 02/02/2025 Telephone Adult Medicine [address] [phone] Max George MD Forms/questionnaires ([employer]) 01/30/2025 2:00 PM EDT Office Visit [address]mon[address] [place] [phone] Julieta Carballo MD Chronic obstructive pulmonary disease, unspecified COPD type (CMS/HCC V24, CMS/HCC V28) (Primary Dx); Tobacco abuse 01/30/2025 Anticoagulation - Warfarin Visit [facility] [address] [place] [address] Tyron Chicas MD Atrial fibrillation, unspecified type (CMS/HCC V24, CMS/HCC V28) (Primary Dx) 01/26/2025 1:30 PM EDT Office Visit [address] [phone] Max George MD COPD exacerbation (CMS/HCC V24, CMS/HCC V28) (Primary Dx); Upper respiratory tract infection, unspecified type; Anxiety; Atrial fibrillation, unspecified type (CMS/HCC V24, CMS/HCC V28); Hypomagnesemia 01/26/2025 8:40 AM EDT Office Visit [facility] [address] [place] [address] Lisa Jarvis NP Atrial fibrillation, unspecified type (CMS/HCC V24, CMS/HCC V28) (Primary Dx); Hypertension, unspecified type; Mixed hyperlipidemia 01/26/2025 Anticoagulation - Warfarin Visit [facility] [address] [place] [address] Tyron Chicas MD Atrial fibrillation, unspecified type (CMS/HCC V24, CMS/HCC V28) (Primary Dx) 01/26/2025 Telephone [facility] [address] [place] [address] Lisa Jarvis NP 01/25/2025 Telephone Adult [address] [phone] Max George MD Hospitalization/ER 01/09/2025 3:00 PM EST Office Visit [address] [phone] Braydon Hunter PA Hypertension, unspecified type (Primary Dx); Atrial fibrillation, unspecified type (CMS/HCC V24, CMS/HCC V28); Vitamin D deficiency; Tubular adenoma from Last 3 Months Immunizations Name Administration Dates Next Due [employer] SARS-CoV-2 COVID-19, mRNA, LNP-S, preservative free 07/05/2021,06/20/2021 Td Tetanus diptheria (Tdvax) 7yo and older 04/27 Tdap Tetanus diptheria acell ular pertussis (Boostrix; Adacel) 7yo and older 03/13/2008 Surgical History Surgery Date Site/Laterality Comments KNEE SURGERY Left PROCEDURE: HISTORICAL KNEE SURGERY APPENDECTOMY PROCEDURE: HISTORICAL APPENDECTOMY COLONOSCOPY 03/12/2017 PROCEDURE: HISTORICAL COLONOSCOPY; COMMENT: normal; repeat in 10 yrs UPPER GASTROINTESTINAL ENDOSCOPY 08/10/2019 PROCEDURE: [facility] UPPER GI ENDOSCOPY PERFORMED; COMMENT: Normal; duodenal [...] 1:00 PM EDT Office Visit Adult Medicine [address] [phone] Braydon Hunter PA [address] [place] [address] 05/11/2025 2:30 PM EDT Office Visit Adult Medicine [address] [place] [phone] Stacey Griffin PA [address] [place] [address] 05/22/2025 1:00 PM EDT Appointment Radiology Department - [address] [phone] 06/02/2025 2:15 PM EDT Office Visit Pulmonolgy - [place] [address] [place] [phone] Julieta Carballo MD [address] [facility] [address] [place] [address] 06/15/2025 11:10 AM EDT Office Visit [facility] [address] [place] [address] [place] [phone] Judith Wright NP [address] [place] [address] [address] [place] [address] Health Maintenance Due Date Last Done Comments [...] Procedure Name Priority Date/Time Associated Diagnosis Comments PROTHROMBIN TIME WITH INR Routine 03/27/2025 1:36 PM EDT Atrial fibrillation, unspecified type (CMS/HCC V24, CMS/HCC V28) EXTERNAL CLINICAL LAB Routine 03/21/2025 11:22 AM EDT PROTHROMBIN TIME WITH INR Routine 03/21/2025 EXTERNAL XRAY REPORT 03/19/2025 EXTERNAL XRAY REPORT 03/19/2025 EXTERNAL XRAY REPORT 03/19/2025 EXTERNAL XRAY REPORT 03/19/2025 COMPLETE BLOOD COUNT Routine 03/09/2025 12:39 PM [...] of bone density and structure, unspecified site HM COLONOSCOPY Routine 08/10/2019 HEPATITIS C SCREENING Routine 05/16/2013 from Last 3 Months or Most Recently Relevant to Health Maintenance Results * (ABNORMAL) Prothrombin time with INR (03/27/2025 1:36 PM EDT) Only the most recent of8 resultswithin the time period is included. Protime 25.2(H) 10.6 - 13.9 sec LAB COAGULATION METHOD 03/27/2025 4:44 PM EDT [facility] INR 2.0 LAB COAGULATION METHOD 03/27/2025 4:44 PM EDT [facility] Blood Venous blood specimen / Unknown Venipuncture / Unknown 03/27/2025 1:36 PM EDT 03/27/2025 1:36 PM EDT Tyron Chicas MD LAB BLOOD ORDERABLES F inal Result [facility] [address] [place] [address], [place] [phone] * External clinical lab (03/21/2025 11:22 AM EDT) Historical Provider LAB BLOOD ORDERABLES Mavis l Result * External Xray Report (03/19/2025) Only the most recent of4 resultswithin the time period is included. Anatomical Region Laterality Modality Radiographic Amisha ging Provider [facility] IM[facility] XR PROCEDURES Final Result * (ABNORMAL) Complete blood count (03/09/2025 12:39 PM EDT) Only the most recent of2 resultswithin the time period is included. WBC 11.5(H) 4.8 - 10.8 K/[facility] LAB HEMETOLOGY METHOD 03/09/2025 3:00 PM EDT [facility] RBC 4.90(H) 3.80 - 4.80 M/[facility] LAB HEMETOLOGY METHOD 03/09/2025 3:00 PM EDT [facility] Hemoglobin 15.0 11.5 - 16.0 g/dL LAB HEMETOLOGY METHOD 03/09[facility]2025 [facility] Hematocrit 44.6 35.0 - 47.0 % LAB HEMETOLOGY METHOD 03/09/2025 3:00 PM [facility] MCV 92.0 79.0 - 98.0 FL LAB HEMETOLOGY METHOD 03/09/2025 3:[facility] MCH 30.9 27.0 - 32.0 pcg LAB HEMETOLOGY METHOD 03/09/2025 3:[facility] MCHC 33.6 32.0 - 37.0 g/dL LAB HEMETOLOGY METHOD 03/09/2025 3:00 PM [facility] RDW 15.4(H) 11.0 - 15.0 % LAB HEMETOLOGY METHOD 03/09/2025 3:00 PM [facility] Platelets 298 130 - 400 K/mcL LAB HEMETOLOGY METHOD 03/09/2025 3:00 PM [facility] MPV 9.7 7.0 - 11.0 FL LAB HEMETOLOGY METHOD 03/09/2025 3:00 PM [facility] NRBC 0.0 <1.0 % LAB HEMETOLOGY METHOD 03/09/2025 3:00 PM [facility] NRBC Absolute 0.00 <0.10 K/mcL LAB HEMETOLOGY METHOD 03/09/2025 3:00 PM [facility] Blood Venous blood specimen / Unknown Venipuncture / Unknown 03/09/2025 12:39 PM EDT 03/09/2025 12:39 PM EDT us Braydon CAM LAB BLOOD ORDERABLES Fin al Result Performing Organization Address [facility]/ZIP Co de Phone Number [facility] [address] [place] [address], * (ABNORMAL) C-reactive protein (03/09/2025 12:39 PM EDT) [facility] C-Reactive Protein 0.87(H) <=0.50 mg/dL LAB CHEMISTRY METHOD 03/09/2025 5:36 PM EDT [facility] Blood Venous blood specimen / Unknown Venipuncture / Unknown 03/09/2025 12:39 PM EDT 03/09/2025 12:39 PM EDT Braydon CAM LAB BLOOD ORDERABLES Fin al Result Performing Organization Address [facility] Co de Phone Number [facility] [address] [place] [address], * (ABNORMAL) Basic metabolic panel (03/09/2025 12:39 PM EDT) [facility] Sodium 131(L) 133 - 145 mmol/L LAB CHEMISTRY METHOD 03/09/2025 5:36 PM [facility] Potassium 5.0 3.5 - 5.5 mmol/L LAB CHEMISTRY METHOD 03/09/2025 5:36 PM [facility] Chloride 102 96 - 110 mmol/L LAB CHEMISTRY METHOD 03/09/2025 5:36 PM T [facility] CO2 25 21 - 32 mmol/L LAB CHEMISTRY METHOD 03/09/2025 5:36 [facility] Anion Gap 4 3 - 11 LAB CHEMISTRY METHOD 03/09/2025 5:36 PM [facility] Glucose 97 70 - 100 mg/dL LAB CHEMISTRY METHOD 03/09/2025 5:36 [facility] BUN 13 5 - 25 mg/dL LAB CHEMISTRY METHOD 03/09/2025 5:36 PM EDT [facility] Creatinine 0.82 0.50 - 1.10 mg/dL LAB CHEMISTRY METHOD 03/09/2025 5:36 PM EDT [facility] eGFR 78 >=60 mL/min/1. 73m2 LAB CHEMISTRY METHOD 03/09/2025 5:36 PM EDT [facility] Comment:Calculation based on the??Chronic Kidney Disease Epidemiology Collaboration (CKD-EPI) equation refit??without adjustment for race. BUN/Creatinine Ratio 15.9 LAB CHEMISTRY METHOD 03/09/2025 5:36 PM EDT [facility] Calcium 10.2 8.5 - 10.5 mg/dL LAB CHEMISTRY METHOD 03/09/2025 5:36 PM EDT [facility] Blood Venous blood specimen / Unknown Venipuncture / Unknown 03/09/2025 12:39 PM EDT 03/09/2025 12:39 PM EDT us Braydon CAM LAB BLOOD ORDERABLES Fin al Result [facility] [address] [place] [address], * XR Hip 2-3 Views Left (03/09/2025 [...] Signed Date: 03/09/2025 12:06 ET Workstation ID: [id number] Transcribed By: Self Edit Transcribed Date: 03/09/2025 [...] Signed Date: 03/09/2025 12:06 ET Workstation ID: [id number] Transcribed By: Self Edit Transcribed Date: 03/09/2025 12:05 ET us Braydon CAM IMG XR PROCEDURES Final Result * (ABNORMAL) Magnesium (01/30/2025 9:11 AM EDT) Only the most recent of2 resultswithin the time period is included. Magnesium 1.8(L) 1.9 - 2.6 mg/dL LAB CHEMISTRY METHOD 01/30/2025 12:58 PM EDT [facility] Blood Venous blood specimen / Unknown Venipuncture / Unknown 01/30/2025 9:11 AM EDT 01/30/2025 9:11 AM EDT Max George MD LAB BLOOD ORDERABLES Final Resul t [facility] [address] [place] [address], * ECG 12 lead (01/26/2025 9:20 AM EDT) Ventricular Rate ECG 50 BPM GEMUSE Atrial Rate 50 BPM GEMUSE P-R Interval 160 ms GEMUSE QRS Duration 70 ms GEMUSE Q-T Interval 440 ms GEMUSE QTc 401 ms GEMUSE P Wave [employer] [place] 76 degrees GEMUSE R [employer] [place] 0 degrees GEMUSE T [employer] 76 degrees GEMUSE ECG Interpretation Sinus bradycardia Otherwise normal ECG When compared with ECG of 08-AUG-2023 08:06, Sinus rhythm has replaced Atrial fibrillation Vent. rate has decreased BY ??72 BPM Nonspecific T wave abnormality no longer evident in Anterolateral leads Confirmed by TYRON CHICAS ([id number]) on 01/26/2025 9:25:30 AM GEMUSE 01/26/2025 8:36 AM EDT 01/26/2025 9:25 AM EDT Lisa Jarvis STRIPPING SHOVEL OPERATOR ECG ORDERABLES Edited Resu lt - Final CLARENCE * Lipid panel with reflex to direct LDL (01/24/2025 11:44 AM EDT) Pathologist [facility] Cholesterol 168 0 - 200 mg/dL LAB CHEMISTRY METHOD 01/24/2025 4:34 PM EDT [facility] Triglycerides 102 0 - 150 mg/dL LAB CHEMISTRY METHOD 01/24/2025 4:34 PM EDT [facility] HDL 70 >=40 mg/dL LAB CHEMISTRY METHOD 01/24/2025 4:34 PM EDT [facility] LDL Calculated 78 0 - 100 mg/dL LAB CHEMISTRY METHOD 01/24/2025 4:34 PM EDT [facility] VLDL Cholesterol Jd 20.4 mg/dL LAB CHEMISTRY METHOD 01/24/2025 4:34 PM EDT [facility] Non HDL Chol. (LDL+VLDL) 98 <145 mg/dL LAB CHEMISTRY METHOD 01/24/2025 4:34 PM EDT [facility] Chol/HDL Ratio 2.4 0.0 - 4.4 LAB CHEMISTRY METHOD 01/24/2025 4:34 PM EDT [facility] Blood Venous blood specimen / Unknown Venipuncture / Unknown 01/24/2025 11:44 AM EDT 01/24/2025 11:44 AM EDT Braydon CAM LAB BLOOD ORDERABLES Fin al Result Performing Organization Address City/[facility]/ZIP Co de Phone Number [facility] [address] [place] [address], [place] [phone] * Vitamin D 25 hydroxy (01/24/2025 11:44 AM EDT) Vit D, 25-Hydroxy 37.6 30.0 - 80.0 ng/mL LAB CHEMISTRY METHOD 01/24/2025 4:39 PM EDT [facility] Blood Venous blood specimen / Unknown Venipuncture / Unknown 01/24/2025 11:44 AM EDT 01/24/2025 11:44 AM EDT Braydon CAM LAB BLOOD ORDERABLES Fin al Result Performing Organization Address [facility]/ZIP Co de Phone Number [facility] [address] [place] [address], [place] [phone] * Thyroid stimulating hormone (01/24/2025 11:44 AM EDT) TSH 0.89 0.40 - 4.00 mcIU/mL LAB CHEMISTRY METHOD 01/24/2025 4:40 PM EDT [facility] Blood Venous blood specimen / Unknown Venipuncture / Unknown 01/24/2025 11:44 AM EDT 01/24/2025 11:44 AM EDT us Braydon CAM LAB BLOOD ORDERABLES Fin al Result [facility] [address] [place] [address], * (ABNORMAL) Comprehensive metabolic panel (01/24/2025 11:44 AM EDT) Sodium 133 133 - 145 mmol/L LAB CHEMISTRY METHOD 01/24/2025 4:34 PM EDT [facility] Potassium 4.7 3.5 - 5.5 mmol/L LAB CHEMISTRY METHOD 01/24/2025 4:34 PM [facility] Chloride 97 96 - 110 mmol/L LAB CHEMISTRY METHOD 01/24/2025 4:34 PM [facility] CO2 27 21 - 32 mmol/L LAB CHEMISTRY METHOD 01/24/2025 4:34 PM [facility] Anion Gap 9 3 - 11 LAB CHEMISTRY METHOD 01/24/2025 4:34 PM [facility] Glucose 95 70 - 100 mg/dL LAB CHEMISTRY METHOD 01/24/2025 4:34 PM [facility] BUN 16 5 - 25 mg/dL LAB CHEMISTRY METHOD 01/24/2025 4:34 PM [facility] Creatinine 0.77 0.50 - 1.10 mg/dL LAB CHEMISTRY METHOD 01/24/2025 4:34 PM [facility] eGFR 84 >=60 mL/min/1. 73m2 LAB CHEMISTRY METHOD 01/24/2025 4:34 PM [facility] Comment:Calculation based on the??Chronic Kidney Disease Epidemiology Collaboration (CKD-EPI) equation refit??without adjustment for race. BUN/Creatinine Ratio 20.8 LAB CHEMISTRY METHOD 01/24/2025 4:34 PM [facility] Calcium 9.6 8.5 - 10.5 mg/dL LAB CHEMISTRY METHOD 01/24/2025 4:34 PM EDT [facility] AST (SGOT) 19 10 - 42 unit/L LAB CHEMISTRY METHOD 01/24/2025 4:34 PM EDT [facility] ALT (SGPT) 19 10 - 60 unit/L LAB CHEMISTRY METHOD 01/24/2025 4:34 PM EDT [facility] Alkaline Phosphatase 131(H) 42 - 121 unit/L LAB CHEMISTRY METHOD 01/24/2025 4:34 PM EDT [facility] Total Protein 6.9 6.0 - 8.0 g/dL LAB CHEMISTRY METHOD 01/24/2025 4:34 PM EDT [facility] Albumin 3.4 3.2 - 5.0 g/dL LAB CHEMISTRY METHOD 01/24/2025 4:34 PM EDT [facility] Total Bilirubin 0.6 0.0 - 1.4 mg/dL LAB CHEMISTRY METHOD 01/24/2025 4:34 PM EDT [facility] Blood Venous blood specimen / Unknown Venipuncture / Unknown 01/24/2025 11:44 AM EDT 01/24/2025 11:44 AM EDT us Braydon CAM LAB BLOOD ORDERABLES Fin al Result [facility] [address] [place] [address], * CT LUNG SCREENING LOW DOSE (08/15/2024 10:40 AM EDT) Anatomical Region Laterality Modality Computed Tomogra phy 08/12/2024 2:27 PM EDT Narrative 08/15/2024 10:40 AM EDT [facility] Diagnostic Imaging Department [address] [place] [address] Patient: ??RAYA STEINER ?/Age/Sex: 1955 - 69 - F Unit#: ??[id number] ? Location/Status: ??SPDICATLS/REG CLI ? Mnemonic/Ordering Site: ??CTLUNGLD/SPCT Ordering Physician: ??DAVID CRUZ MD CT Lung Screening Low Dose - 08/12/24 - [id number] Report Status:Signed INDICATION: Current smoker with 44 pack-year smoking history FINDINGS: Low-dose CT scan of the chest obtained as a lung cancer screening study. Scanner: [employer] speed 64 slice VCT Dose reduction technique: [...] chest CT in 12 months Dictating Physician: ??CINDY,PARSHANT MD Electronically Signed by: ??LAWRENCE JOHNSTON MD Dic Date/Time: ??08/15/24 1028 Sign date/Time: ??08/15/24 1040 Procedure Note Lawrence Johnston MD - 08/31/2024 [facility] Diagnostic Imaging Department [address] [place] [id number] Patient: RAYA STEINER /Age/Sex: 1955 - 69 - F Unit#: [id number] Location/Status: [facility] Mnemonic/Ordering Site: [facility] Ordering Physician: DAVID CRUZ MD CT Lung Screening Low Dose - 08/12/24 - [id number] Report Status:Signed INDICATION: Current smoker with 44 pack-year smoking history FINDINGS: Low-dose CT scan of the chest obtained as a lung cancerscreening study. Scanner: [employer] speed 64 slice VCT Dose reduction technique: [...] risk category Low (<15%) Max George MD IMElizabeth XR PROCEDURES Final Result * DXA BONE [...] (World Health Organization Fracture Risk Assessment) [facility] Department of Internal Medicine recommends using National [...] alternative screening schedule based on kvng Luong., [facility] December 04, 2011 for patients with osteopenia [...] years. (World HealthOrganization Fracture Risk Assessment) [facility] Department of Internal Medicine recommendsusing National Osteoporosis [...] alternative screening schedule based on kvng Luong., NEJMJanuary 2011 for patients with osteopenia (based on hip BMD T-score) is as follows: * advanced osteopenia (T scores -2.00 to -2.49), BMD testing every year * moderate osteopenia (T scores -1.50 to -1.99), BMD testing every 5years mild osteopenia or normal BMD (T scores -1.50 and higher), BMD testingevery 15 years Braydon CAM IMG DXA PROCEDURES Final Result * Colonoscopy (08/10/2019) [facility] Colonoscopy no interpreta tion,abstr acted Anatomical Region Laterality Modality Other Historical Provider HEALTH MAINTENANCE Final Result * Hepatitis C Screening (05/16/2013) [facility] Hepatitis C Screening abstracted [facility] Provider HEALTH MAINTENANCE Final Result from Last 3 Months or Most Recently Relevant to Health Maintenance Insurance [facility] MEDICARE Advance Directives Documents on File Type Date Recorded 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
== END 2025-03-30 14:30 | disposition home or self-care (01) ==
LOC: HO.HOS 13:15
PROVIDERS: PCP Internal Medicine; Visit Provider Physician Assistant
DX: S82.831A Other fracture of upper and lower end of right fibula, initial encounter for closed fracture (principal)
CPT/HCPCS: 99203; G2211

== ENCOUNTER → 2025-03-30 13:51 | Outpatient (BNV) | payer OTHER, SELFPAY | PROVIDERS: PCP Internal Medicine; Visit Provider Radiology Diagnostic Radiology | DX: M25.571 Pain in right ankle and joints of right foot (principal) | CPT/HCPCS: 73610 ==

== ENCOUNTER 2025-04-28 08:05 | Outpatient (REF) | payer OTHER, MEDICARE, SELFPAY ==
--- NOTE | ~2025-04-28 | XR_ITS ---
EXAMINATION: XR ANKLE 3 OR MORE VIEWS RIGHT HISTORY: M25.571 - Pain in right ankle and joints of right foot COMPARISON: Comparison is made with the prior examination dated 03/30/2025. FINDINGS: Three views of the right ankle are submitted. Osseous mineralization is normal. Again seen is a mildly displaced oblique fracture of the distal fibula. There is slightly greater callus formation seen, consistent with healing. The joint spaces are preserved. The soft tissues are unremarkable. XR/XR ankle RT min 3V IMPRESSION: Healing oblique mildly displaced fracture of the distal fibula. Electronically signed by: Nick Guillory MD 04/28/2025 01:01 PM EDT
== END 2025-04-28 08:06 | disposition home or self-care (01) ==
LOC: HO.HOSX 08:05
PROVIDERS: Visit Provider Physician Assistant
DX: M25.571 Pain in right ankle and joints of right foot (principal); S82.831A Other fracture of upper and lower end of right fibula, initial encounter for closed fracture
CPT/HCPCS: 73610; 99212

== ENCOUNTER 2025-04-28 11:35 | Outpatient (AMB) | payer OTHER, SELFPAY ==
[2025-04-28 12:01] VITALS: BMI 21.6
--- NOTE | 2025-04-28 12:01 | MHC.OFFVIS ---
Vital Signs 04/28/25 12:01 Height 5 ft 5 in Weight 130 lb BMI 21.6 Intake Visit Reasons: OV-RT Fibula fracture-4 WK follow up Intake Note: Raya is a 69 year old female who presents today for a follow up of right fibula fracture, DOI 03/21/25. At patient last visit she was instructed weight bear in walking boot only and follow up in 4 weeks. Patient reports she is no longer using crutches to ambulate. She continues wearing the tall boot. Patient is very adamant about driving again, would like to discuss today. Allergies No Known Allergies Allergy (Verified 04/28/25 12:05) Medication List - Last Reconciled 05/01/25 by Wendy Clement PA-C acetaminophen (Tylenol Extra Strength) 1,000 mg (2 x 500 mg) PO QID PRN albuterol sulfate 90 mcg/actuation 2 puffs inhalation Q6H PRN atenolol 37.5 mg PO DAILY cholecalciferol (vitamin D3) 50 mcg PO DAILY citalopram 40 mg PO DAILY cyanocobalamin (vitamin B-12) 1,000 mcg PO DAILY doxycycline hyclate 100 mg PO BID fluticasone propion-salmeterol 250-50 mcg/dose 1 ea inhalation BID guaifenesin 100 mg (5 mL) PO Q4H PRN lidocaine 5% 1 patch topical DAILY lisinopril 40 mg PO DAILY magnesium oxide 400 mg PO BIDPC nicotine (polacrilex) 2 mg buccal Q2H PRN ondansetron 4 mg PO Q8H PRN oxycodone 5 mg PO Q6H PRN pravastatin 20 mg PO DAILY prednisone 20 mg PO DAILY primidone 50 mg PO TID warfarin (Jantoven) 5 mg PO DAILY@1800 HPI HPI OV-RT Fibula fracture-4 WK follow up: Details: 69 yo female returns to the office today f/u right distal fibular fracture she has been weight-bearing as tolerated with the boot. Complains of minimal discomfort. PFSH Medical History COPD (chronic obstructive pulmonary disease) Smoker unmotivated to quit Essential hypertension Social History Household Members: None Housing: Apartment Do you presently have visiting nurse or other home services: No Patient Tobacco Use Status: Current everyday Tobacco user Tobacco use type: Cigarette Cigarette Packs Per Day: 0.5 Cigarettes Per Day: 10.0 Years Smoked: 30 Substance Use Type: Marijuana service: No Review of Systems Const All systems reviewed & are unremarkable except as noted in HPI and below Physical Exam Vital Signs: BMI result Body Mass Index 21.6 Extrem Other: Right ankle is normal to inspection. No swelling. She does have mild discomfort over the distal fibula. Neurovascularly intact. Results Reviewed Results Reviewed: X-rays of the right ankle obtained in the office today and reviewed by me show distal fibular fracture with intact ankle mortise. Interval healing. Assessment & Plan Assessment & Plan (1) Closed fracture of right distal fibula: Code(s): S82.831A - Other fracture of upper and lower end of right fibula, initial encounter for closed fracture Category: Medical Plan: Given the continued discomfort on clinical exam I recommend the boot for another 2-3 weeks while weight-bearing. She is a smoker and this could delay bone healing. She can come out of the boot for hygiene and gentle [id number] exercises. I will see her back in 3 weeks with x-rays sooner if needed. Orders: Orders XR ankle RT min 3V 04/28/25 M25.571 - Pain in right ankle and joints of right foot Coding Level of Care Code Global (03132) Diagnoses Closed fracture of right distal fibula S82.831A
--- OUTSIDE RECORDS SUMMARY | 2025-04-28 12:33 | XMS_ITS | Data Portability ---
Author Organization [place] - [facility], Allergy Address [address] [place] [id number] Care Team Providers Care Business Banking Sales Assistant Name Role Phone KEHINDE FLETCHER Primary Care [...] symptoms. Audiometric testing is stable. Patient declined [place]-Hallpike test for vertigo in the office. Symptoms and history are consistent with BPPV. The pathophysiology of BPPV was discussed in detail. Patient was provided with a referral to [facility] for Marbin maneuvers and vestibular therapy.We discussed the fact that treatment of BPPV [...] Therapy - [place] - Joo Funk, [address] [facility] , [place], [address], 01/22/202 5 10:19:04 Procedures None recorded. Surgeries None recorded. Imaging None recorded. Medication Orders None recorded. Patient TargetsNo targets recorded. Patient InstructionsNo instructions recorded. Reason for Referral Vestibular Therapy Referral for Benign paroxysmal positional vertigo Referring Physician: Trini Huynh, Otolaryngology, Encounter Date: 12/01/2024 Results Created [...] Recorded Time Sudden idiopathi c hearing loss [id number] Active 2021 Sudden idiopathi c hearing loss, left ear; Note: Date Diagnosed : 08/21/2022 12:30 PM (H91.22) Not Available [facility] 4 02:25:54 Sensorine ural hearing loss in right ear 05241892402 100 Active 2021 Sensorine ural hearing loss, unilatera l, right ear, with restricte d hearing on the contralat eral side; Note: Date Diagnosed : 08/21/2022 11:55 AM (H90.A21) Not Available [facility] 4 02:26:15 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 36238059 Active 2016 Otosclero sis involving oval window, nonoblite rative, right ear; Note: Changed from H80.91 to H80.01 (09/25/20 17 1:34 PM) , Date Diagnosed : 05/15/2017 10:44 AM (H80.91) Otoscle rosis involving oval window, nonoblite rative, left ear; Note: Date Diagnosed : 05/15/2017 10:44 AM (H80.02) Not Available [facility] 4 02:26:17 Mixed conductiv e and sensorine ural hearing loss, bilateral 620281081 Active 2017 Mixed conductiv e and sensorine ural hearing loss, bilateral ; Note: Date Diagnosed : 11/26/2017 2:33 PM (H90.6) Mixed conductiv e and sensorine ural hearing loss, bilateral ; Note: Date Diagnosed : 02/05/2017 2:25 PM (H90.6) ; Start Date : 7 Not Available [facility] 4 02:25:49 Tobacco user 816393183 Active 2016 Tobacco use NOS; Note: Date Diagnosed : 02/05/2017 2:26 PM (Z72.0) [facility] Available [facility] 4 02:26:04 Mixed conductiv e and sensorine ural hearing loss of right ear 76445116162 105 Active 2016 Mixed conductiv e and sensorine ural hearing loss, unilatera l, right ear with restricte d hearing on the contralat eral side; Note: Date Diagnosed : 07/16/2017 3:45 PM (H90.A31) Not Available [facility] 4 02:25:54 Otosclero sis 79094397 Active 2016 Unspecifi ed otosclero sis, bilateral ; Note: Date Diagnosed : 02/05/2017 2:25 PM (H80.93) Not Available [facility] 4 02:25:52 Sensorine ural hearing loss in left ear 05392537032 109 Active 2016 Sensorine ural hearing loss, unilatera l, left ear, with restricte d hearing on the contralat eral side; Note: Date Diagnosed : 07/16/2017 3:46 PM (H90.A22) Not Available [facility] 4 02:26:02 Sensorine ural hearing loss of bilateral ears 728241196 Active 2021 Sensorine ural hearing loss, bilateral ; Note: Date Diagnosed : 09/19/2022 4:14 PM (H90.3) Not Available [facility] 4 02:26:11 Follow-up visit Active 2016 Medical surveilla nce following completed treatment ; Note: Date Diagnosed : 7 10:48 AM (Z09) Medical surveilla nce following completed treatment ; Note: Date Diagnosed : 05/22/2017 1:36 PM (Z09) ; Start Date : 7 Not Available [facility] 4 02:26:05 Mixed conductiv e and sensorine ural hearing loss of left ear 48816909331 107 Active 2021 Mixed conductiv e and sensorine ural hearing loss, unilatera l, left ear with restricte d hearing on the contralat eral side; Note: Date Diagnosed : 08/21/2022 11:55 AM (H90.A32) Not Available [facility] 4 02:25:53 Vertigo 129831090 Active 2024 RAYA TYLER MA, CCC-A [address], [place], [address] , [facility] - [facility] 5 10:47:35 Benign paroxysma l positiona l vertigo 236463218 Active 2024 TRINI HYUNH PA-C [address],[facility] [address], [place], [address] , [facility] - [facility] 5 11:23:15 Problem Notes None recorded. Procedures Surgical History Date Name Laterality Status Provider Name and Address Organization Details Recorded Time 12/01/2024 Comp Audio with Tymps - 09058 & 29961 completed RAYA TYLER MA, CCC-A [address], [place], [address], [facility] 12/01/2024 10:44:24 Imaging Results None recorded. Procedure Notes None recorded. Medical Equipment None [...] mg tablet 2021 active Medicati on ID: [id number] D uration Value: 14 Brand Name: predniso [...] mg tablet 2016 active Medicati on ID: [id number] D uration Value: 30 Brand Name: meloxica [...] eye drops 10/16 completed Medicati on ID: [id number] D uration Value: 5 Prescri bed By [...] mg tablet 2016 active Medicati on ID: [id number] D uration Value: 15 Brand Name: trazodon [...] Not Available Not Available No t Available [place] 5 mg-325 mg tablet 1-2 tablet by mouth 2016 active Medicati on ID: [id number] D uration Value: 7 Prescri bed By Name: Al Li nd Name: Jasmyne Wolff nd Method: E-Prescr ibed Sub s Allowed: subs OK Medic ationGen ericName : [place] Not Available Not Available Not Available lisinopri l 40 mg tablet TAKE 1 TABLET BY MOUTH DAILY active Not Available Not Available No t Available sertralin e 50 mg tablet 2016 active Medicati on ID: [id number] D uration Value: 30 Brand Name: sertrali [...] SNOMED-CT Code Diagnosis ICD10 Code Diagnosis Note [id number] TRINI HUYNH PA-C [facility] [address] [address] 12/01/2024 10:07:13 12/01/2024 11:23:18 Nonobliterative otosclerosis involving oval window 66582478 H80.01 H80.02 Sensorineu ral hearing loss in right ear 8692210091 9100 H90.A21 Audiologic al evaluation results: Right ear: Mild SNHL thru 4000Hz dropping to severe at 8000Hz with excellent word recognitio n. Left ear: Moderate to mild mixed hearing loss thru 4000Hz drpping to moderate-s evere at 6 & 8kHz with excellent word recognitio n. Tympanomet ry: Right Ear:Type Ad Left Ear:Type Ad Benign par oxysmal positional vertigo 605576177 H81.13 Health Concerns Section Related Observation LastModified by Organization Detai ls LastModified Time None Recorded Concern Status LastModified by Organization Details LastModified Time None Recorded Advance Directives Directive None Recorded Payers Insurance Date Sequence Insurance Name Policy Number Policy Tran Covered Member ID Tran Member ID Guarantor Name 11/30/2024 2 [place]: [facility] Raya Soler [id number] Raya Soler 12/01/2024 1 [facility] (MEDICARE REPLACEMENT/ ADVANTAGE - PPO) [id number] Raya Soler [id number] Raya Soler Notes Date Note Type Note [...] 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 Episodes last up to an hour. Patient denies associated confusion, slurred speech, facial or extremity weakness, numbness, headache, chest pain, heart palpitations, or vision change. Denies change in hearing, tinnitus, or otalgia. She does have a tremor. Smoker. YESY JUAREZ MD [address] [place] [address], [address], [facility] - [facility] 12/02/2024 07:33:25 OBGyn Episode No OBEpisode recorded.
== END 2025-04-28 13:14 | disposition home or self-care (01) ==
LOC: HO.HOS 11:35
PROVIDERS: PCP Internal Medicine; Visit Provider Physician Assistant
DX: S82.831A Other fracture of upper and lower end of right fibula, initial encounter for closed fracture (principal)
CPT/HCPCS: 99213

== ENCOUNTER → 2025-04-28 11:42 | Outpatient (BNV) | payer OTHER, SELFPAY | PROVIDERS: Visit Provider Radiology Diagnostic Radiology | DX: M25.571 Pain in right ankle and joints of right foot (principal) | CPT/HCPCS: 73610 ==

== ENCOUNTER 2025-05-17 06:37 | Outpatient (REF) | payer OTHER, SELFPAY ==
--- NOTE | ~2025-05-17 | XR_ITS ---
EXAMINATION: XR ANKLE, RIGHT CLINICAL INFORMATION: M25.571 - Pain in right ankle and joints of right foot COMPARISON: April 28, 2025 and March 21, 2025 TECHNIQUE: AP, lateral, and mortise views of the right ankle. FINDINGS: Again seen is a fracture of the distal fibula, extending up from the syndesmosis. There is evidence of periosteal new bone formation. Ankle mortise is congruent. There is no widening of the syndesmosis. XR/XR ankle RT min 3V IMPRESSION: Healing distal fibular fracture Electronically signed by: Adal Hayes MD 05/17/2025 04:16 PM EDT
== END 2025-05-17 06:38 | disposition home or self-care (01) ==
LOC: HO.HOSX 06:37
PROVIDERS: Visit Provider Physician Assistant
DX: M25.571 Pain in right ankle and joints of right foot (principal); S82.831A Other fracture of upper and lower end of right fibula, initial encounter for closed fracture
CPT/HCPCS: 73610; 99212

== ENCOUNTER 2025-05-17 13:35 | Outpatient (AMB) | payer OTHER, SELFPAY ==
[2025-05-17 13:55] VITALS: BMI 21.6
--- NOTE | 2025-05-17 13:55 | MHC.OFFVIS ---
Vital Signs 05/17/25 13:55 Height 5 ft 5 in Weight 130 lb BMI 21.6 Intake Visit Reasons: 3wk f/u Right ankle fx w xrays Intake Note: Raya is a 69 year old female who presents today for a follow up of right fibula fracture, DOI 03/21/25. Patient reports she is doing, states when he pain presents she finds relief with use of Tylenol. Allergies No Known Allergies Allergy (Verified 05/17/25 14:01) Medication List - Last Reconciled 05/17/25 by Wendy Clement PA-C acetaminophen (Tylenol Extra Strength) 1,000 mg (2 x 500 mg) PO QID PRN albuterol sulfate 90 mcg/actuation 2 puffs inhalation Q6H PRN atenolol 37.5 mg PO DAILY cholecalciferol (vitamin D3) 50 mcg PO DAILY citalopram 40 mg PO DAILY cyanocobalamin (vitamin B-12) 1,000 mcg PO DAILY doxycycline hyclate 100 mg PO BID fluticasone propion-salmeterol 250-50 mcg/dose 1 ea inhalation BID guaifenesin 100 mg (5 mL) PO Q4H PRN lidocaine 5% 1 patch topical DAILY lisinopril 40 mg PO DAILY magnesium oxide 400 mg PO BIDPC nicotine (polacrilex) 2 mg buccal Q2H PRN ondansetron 4 mg PO Q8H PRN oxycodone 5 mg PO Q6H PRN pravastatin 20 mg PO DAILY prednisone 20 mg PO DAILY primidone 50 mg PO TID warfarin (Jantoven) 5 mg PO DAILY@1800 HPI HPI 3wk f/u Right ankle fx w xrays: Details: 69-year-old female returns to the office today for a follow-up right ankle fracture. She is continued to wear the boot but has also tried walking without the boot with minimal discomfort. [facility] Medical History COPD (chronic obstructive pulmonary disease) Smoker unmotivated to quit Essential hypertension Social History Household Members: None Housing: Apartment Do you presently have visiting nurse or other home services: No Patient Tobacco Use Status: Current everyday Tobacco user Tobacco use type: Cigarette Cigarette Packs Per Day: 0.5 Cigarettes Per Day: 10.0 Years Smoked: 30 Substance Use Type: Marijuana service: No Review of Systems Const All systems reviewed & are unremarkable except as noted in HPI and below Physical Exam Vital Signs: BMI result Body Mass Index 21.6 Extrem Other: Right ankle is normal to inspection. No swelling. She does have very little discomfort over the distal fibula. Neurovascularly intact. Results Reviewed Results Reviewed: X-rays of the right ankle obtained in the office today and reviewed by me show distal fibular fracture with intact ankle mortise. Interval healing. Assessment & Plan Assessment & Plan (1) Closed fracture of right distal fibula: Code(s): S82.831A - Other fracture of upper and lower end of right fibula, initial encounter for closed fracture Category: Medical Plan: Patient we will discontinue the use of the boot and transition to a lace-up ankle brace. She will begin a course of physical therapy to work on range of motion gait training and strengthening exercises. She will remain out of work while she works on conditioning exercises and resume work on 06/19/2025 with her normal 25 hours a week schedule. I did educate the patient intermittent discomfort and swelling is normal as her soft tissues continue to heal. Occasional ibuprofen and icing along with elevation will be helpful. If there is any concerns she will contact our office otherwise follow up as needed. Orders: Orders XR ankle RT min 3V Today M25.571 - Pain in right ankle and joints of right foot PT Evaluation and Treatment Today S82.831A - Other fracture of upper and lower end of right fibula, initial encounter for closed fracture Coding Level of Care Code Global (98926) Diagnoses Closed fracture of right distal fibula S82.831A
--- OUTSIDE RECORDS SUMMARY | 2025-05-17 14:11 | XMS_ITS | Data Portability ---
Author Organization [place] - [facility], Allergy Address [address] [place] [address] Care Team Providers Care Ear Nose Throat Physician Name Role Phone KEHINDE FLETCHER Primary Care [...] symptoms. Audiometric testing is stable. Patient declined [place]-Hallpike test for vertigo in the office. Symptoms and history are consistent with BPPV. The pathophysiology of BPPV was discussed in detail. Patient was provided with a referral to [facility] for Marbin maneuvers and vestibular therapy.We discussed [...] recorded. Referral vestibular therapy referral 2024 025 SRUTHIENAFAX At Physical Therapy - [place] - Joo Funk, [address] [facility] , Rashid [place], [place], [address], 5 10:19:04 Procedures None recorded. 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 18452446 Active 2016 Otosclero sis involving oval window, nonoblite rative, right ear; Note: Changed from H80.91 to H80.01 (09/25/20 17 1:34 PM) , Date Diagnosed : 05/15/2017 10:44 AM (H80.91) Otoscle rosis involving oval window, nonoblite rative, left ear; Note: Date Diagnosed : 05/15/2017 10:44 AM (H80.02) Not Available [facility] 4 02:26:17 Mixed conductiv e and sensorine ural hearing loss, bilateral 124586016 Active 2017 Mixed conductiv e and sensorine ural hearing loss, bilateral ; Note: Date Diagnosed : 11/26/2017 2:33 PM (H90.6) Mixed conductiv e and sensorine ural hearing loss, bilateral ; Note: Date Diagnosed : 02/05/2017 2:25 PM (H90.6) ; Start Date : [address] [facility] 4 02:25:49 Tobacco user 556185318 Active 2016 Tobacco use NOS; Note: Date Diagnosed : 02/05/2017 2:26 PM (Z72.0) Not Available [facility] 4 02:26:04 Mixed conductiv e and sensorine ural hearing loss of right ear 19535892294 105 Active 2016 Mixed conductiv e and sensorine ural hearing loss, unilatera l, right ear with restricte d hearing on the contralat eral side; Note: Date Diagnosed : 07/16/2017 3:45 PM (H90.A31) Not Available [facility] 4 02:25:54 Otosclero sis 81734766 Active 2016 Unspecifi ed otosclero sis, bilateral ; Note: Date Diagnosed : 02/05/2017 2:25 PM (H80.93) Not Available [facility] 4 02:25:52 Sensorine ural hearing loss in left ear 71988838461 109 Active 2016 Sensorine ural hearing loss, unilatera l, left ear, with restricte d hearing on the contralat eral side; Note: Date Diagnosed : 07/16/2017 3:46 PM (H90.A22) Not Available [facility] 4 02:26:02 Sensorine ural hearing loss of bilateral ears 530294713 Active 2021 Sensorine ural hearing loss, bilateral ; Note: Date Diagnosed : 09/19/2022 4:14 PM (H90.3) Not Available [facility] 4 02:26:11 Follow-up visit Active 2016 Medical surveilla nce following completed treatment ; Note: Date Diagnosed : 7 10:48 AM (Z09) Medical surveilla nce following completed treatment ; Note: Date Diagnosed : 05/22/2017 1:36 PM (Z09) ; Start Date : 7 [address] [facility] 4 02:26:05 Mixed conductiv e and sensorine ural hearing loss of left ear 60845546813 107 Active 2021 Mixed conductiv e and sensorine ural hearing loss, unilatera l, left ear with restricte d hearing on the contralat eral side; Note: Date Diagnosed : 08/21/2022 11:55 AM (H90.A32) Not Available [facility] 4 02:25:53 Vertigo 174543827 Active 2024 RAYA TYLER MA, CCC-A [address] [facility],[address] [facility], [place], [address] , [facility] - [facility] 5 10:47:35 Benign paroxysma l positiona l vertigo 113864702 Active 2024 TRINI HUYNH PA-C [address] [facility],[place] [address], [place], [address] , [facility] - [facility] 5 11:23:15 Problem Notes None recorded. Procedures Surgical History Date Name Laterality Status Provider Name and Address Organization Details Recorded Time 12/01/2024 Comp Audio with Tymps - 18830 & 13243 completed RAYA TYLER MA, CCC-A [address] [facility] [place],[address], [place], [address], [facility] 12/01/2024 10:44:24 Imaging Results None recorded. [...] mg tablet 2021 active Medicati on ID: [id number] D uration Value: 14 Brand Name: predniso [...] mg tablet 2016 active Medicati on ID: [id number] D uration Value: 30 Brand Name: meloxica [...] eye drops 10/16 completed Medicati on ID: [id number] D uration Value: 5 Prescri bed By [...] mg tablet 2016 active Medicati on ID: [id number] D uration Value: 15 Brand Name: trazodon [...] Not Available Not Available No t Available [place] 5 mg-325 mg tablet 1-2 tablet by mouth 2016 active Medicati on ID: [id number] D uration Value: 7 Prescri bed By Name: Yesy Juarez M.D. Bra nd Name: Jasmyne Se nd Method: E-Prescr ibed Sub s Allowed: subs OK Medic ationGen ericName : [place] Not Available Not Available Not Available lisinopri l 40 mg tablet TAKE 1 TABLET BY MOUTH DAILY active Not Available Not Available No t Available sertralin e 50 mg tablet 2016 active Medicati on ID: [id number] D uration Value: 30 Brand Name: sertrali [...] SNOMED-CT Code Diagnosis ICD10 Code Diagnosis Note [id number] TRINI HUYNH PA-C [facility] [address] [place] [address] 12/01/2024 10:07:13 12/01/2024 11:23:18 Nonobliterative otosclerosis involving oval window 60837178 H80.01 H80.02 Sensorineu ral hearing loss in right ear 9242007201 9100 H90.A21 Audiologic al evaluation results: Right ear: Mild SNHL thru 4000Hz dropping to severe at 8000Hz with excellent word recognitio n. Left ear: Moderate to mild mixed hearing loss thru 4000Hz drpping to moderate-s evere at 6 & 8kHz with excellent word recognitio n. Tympanomet ry: Right Ear:Type Ad Left Ear:Type Ad Benign par oxysmal positional vertigo 044029639 H81.13 Health Concerns Section Related Observation LastModified by Organization Detai ls LastModified Time None Recorded Concern Status LastModified by Organization Details LastModified Time None Recorded Advance Directives Directive None Recorded Payers Insurance Date Sequence Insurance Name Policy Number Policy Tran Covered Member ID Tran Member ID Guarantor Name 11/30/2024 2 [place]: [facility] Raya Soler [id number] Raya Soler 12/01/2024 1 [facility] (MEDICARE REPLACEMENT/ ADVANTAGE - PPO) [id number] Raya Soler [id number] Raya Soler Notes Date Note Type Note [...] 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 Episodes last up to an hour. Patient denies associated confusion, slurred speech, facial or extremity weakness, numbness, headache, chest pain, heart palpitations, or vision change. Denies change in hearing, tinnitus, or otalgia. She does have a tremor. Smoker. YESY JUAREZ MD [address] [facility],[place] [address], [place], [address], [facility] - [facility] 12/02/2024 07:33:25 OBGyn Episode No OBEpisode recorded.
== END 2025-05-17 14:20 | disposition home or self-care (01) ==
LOC: HO.HOS 13:35
PROVIDERS: PCP Internal Medicine; Visit Provider Physician Assistant
DX: S82.831A Other fracture of upper and lower end of right fibula, initial encounter for closed fracture (principal)
CPT/HCPCS: 99213

== ENCOUNTER → 2025-05-17 13:49 | Outpatient (BNV) | payer OTHER, SELFPAY | PROVIDERS: Visit Provider Radiology Diagnostic Radiology | DX: S82.831D Other fracture of upper and lower end of right fibula, subsequent encounter for closed fracture with routine healing (principal) | CPT/HCPCS: 73610 ==

== ENCOUNTER 2025-06-07 09:52 | Outpatient (RCR) | payer MEDICARE, SELFPAY ==
--- NOTE | 2025-06-07 15:44 | MHC.PT.EP ---
[facility] [place] [facility] [place] [facility] [place] Office [address] [phone] F: [phone] F: [phone] F: [phone] F: [phone] Physical Therapy Plan of Care Date of Evaluation: 06/07/25 Date of Surgery: NA Diagnosis: CLOSED FX OF R DISTAL FIBULA Assessment: Pt IS 69 YO F S/P SYNCOPAL EPISODE WITH FALL (AT WORK BUT NOT WORKMANS COMP) WITH R FIBULA FX. WAS IN BOOT/NWBING AND USING CRUTCHES. NOW OOB, WBAT.. PRESENTS WITH DECREASED ANKLE ROM AND STRENGTH WITH ANTALGIC GT AND REPORTED FEAR OF RE-INJURY. SHOULD BENEFIT FROM PT TO ADDRESS THESE ISSUES Frequency and Duration: The patient will be seen 2X/WK X 4 WKS THEN 1X/WK X 6 WKS Short Term Goals: 1. INCREASED AWARENESS OF ANKLE CARE 2. 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 DECREASED RANKLE PAIN AT LEAST 50% WITH ADLS 2. RTW 3. DECREASED SWELLING IN R ANKLE OVERALL PER Pt REPORT 4. INCREASED R ANKLE PF AT LEAST 5 DEGREES WITHOUT PAIN/0 PAIN WITH AROM DF R Treatment Plan: Modalities to reduce pain, spasms and effusion. Manual therapy to restore motion and function. Therapeutic exercise to improve strength and flexibility. Neuromuscular re-education for posture and balance. Therapeutic activities to return to functional activities of daily living. Electronically signed by: KARLEY ORDONEZ PT Please sign and return to therapist. Thank you for your referral.
--- NOTE | 2025-07-07 15:11 | MHC.PT.DC ---
[facility] [place] Office [place] Office [place] Office [address] Azra Hoyos [address] [phone] F: [phone] F: [phone] F: [phone] F: [phone] Physical Therapy Discharge Report Diagnosis: CLOSED FX OF R DISTAL FIBULA Date of Surgery: NA Date of Evaluation: 06/07/25 Date of Discharge: 07/07/25 Treatments to Date: 1 Cancellations to Date: No Shows to Date: Discharge Status: Recommend MD Follow-up Discharge Summary: Pt SEEN FOR INIT EVAL ONLY. PER ASSESSMENT Pt IS 69 YO F S/P SYNCOPAL EPISODE WITH FALL (AT WORK BUT NOT WORKMANS COMP) WITH R FIBULA FX. WAS IN BOOT/NWBING AND USING CRUTCHES. NOW OOB, WBAT.. PRESENTS WITH DECREASED ANKLE ROM AND STRENGTH WITH ANTALGIC GT AND REPORTED FEAR OF RE-INJURY. SHOULD BENEFIT FROM PT TO ADDRESS THESE ISSUES Pt WAS THEN ADMITTED TO HOSPITAL AND WENT TO STR. Electronically signed by: KARLEY ORDONEZ PT Please sign and return to therapist. Thank you for your referral.
== END 2025-07-07 15:11 | disposition home or self-care (01) ==
LOC: HO.PT 09:52
PROVIDERS: PCP Internal Medicine; Visit Provider Physician Assistant
DX: S82.831D Other fracture of upper and lower end of right fibula, subsequent encounter for closed fracture with routine healing (principal); R55 Syncope and collapse
CPT/HCPCS: 97110; 97116; 97162

== ENCOUNTER 2025-06-12 10:16 | Emergency (ER) | payer MEDICARE, SELFPAY ==
[2025-06-12] VITALS (7 sets, daily range): BP systolic 160–196; BP diastolic 87–102; PULSE 62–84; RESP 16; TEMP 35.9–37.2; O2SAT 94–99; BMI 22.0
--- NOTE | ~2025-06-12 | XR_ITS ---
EXAMINATION: XR HIP 1 VIEW LEFT WITH PELVIS HISTORY: LEFT HIP SI pain COMPARISON: Comparison is made with the prior examination dated 03/19/2025. FINDINGS: A single AP view of the pelvis and two views of the left hip are submitted. Osseous mineralization is normal. There is no fracture or dislocation. The joint space is maintained. The soft tissues are unremarkable. XR/XR hip LT w PEL1V IMPRESSION: Unremarkable examination of the left hip. Electronically signed by: Nick Guillory MD 06/12/2025 12:28 PM EDT
--- NOTE | ~2025-06-12 | CT_ITS ---
CLINICAL HISTORY: fall, left hip pain, xray negative CT pelvis without contrast Comparison: X-rays of the left hip and pelvis from 06/12/2025 Findings: Mild wall thickening of the imaged large intestine is nonspecific in the [id number]. The appendix is not definitively seen. No small bowel obstruction [id number]. Imaged abdominal aorta measures 2 cm diameter with a calcified and noncalcified plaque. Additional vascular calcifications noted. The uterus is anteverted. No adnexal soft tissue mass by CT. Mild/minimal wall thickening of the urinary bladder is nonspecific. No free intraperitoneal air. Degenerative changes include the hips, pubic symphysis, SI joints, and imaged spine with severe facet arthropathy in the [id number]. 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 1 cm sclerosis of the proximal left femur likely due to enchondroma. IMPRESSION: 1. No displaced fracture or dislocation of the left hip. 2. Degenerative changes include both hips in the imaged spine. This document has been electronically signed by: Pop Brownlee MD on 06/12/2025 20:02:50
[2025-06-12] MEDS: oxyCODONE HCl Immed Release 5 MG TABLET 10 MG PO (11:40)
[2025-06-12] MEDS: Lidocaine 4 % Patch ADH..PATCH 1 PATCH TRANSDERMA (11:41)
--- NOTE | 2025-06-12 11:54 | ED.FALL ---
HPI - Fall General Chief Complaint: Fall Stated Complaint: fall Time Seen by Provider: 06/12/25 11:08 Source: patient and EMS Mode of arrival: EMS Limitations: no limitations History of Present Illness ED Provider: HPI Narrative: 69-year-old woman she states she had a fall 3-4 days ago while taking care for her plants. This was not a syncope, she did have any palpitations or shortness of breath there was no head injury, she states called PCP's office, was told to come to the ER for any pain medications but she states she has been ambulating to the bathroom very carefully with railing, otherwise she is mostly sedentary, and she lives by herself. No fevers or chills no loss of bowel or bladder function. Not on blood thinners, she does not take narcotic medications on a regular basis. Related Data Home Medications ?Medication ?Instructions ?Recorded ?Confirmed albuterol sulfate 90 mcg/actuation 2 puff inhalation Q6H PRN wheezing 01/21/25 06/12/25 aerosol inhaler atenolol 25 mg tablet 37.5 mg PO DAILY 01/21/25 06/12/25 cholecalciferol (vitamin D3) 50 50 mcg PO DAILY 01/21/25 06/12/25 mcg (2,000 unit) capsule citalopram 40 mg tablet 40 mg PO DAILY 01/21/25 06/12/25 cyanocobalamin (vitamin B-12) 1,000 mcg PO DAILY 01/21/25 06/12/25 1,000 mcg tablet doxycycline hyclate 100 mg tablet 100 mg PO BID 01/21/25 05/17/25 fluticasone 250 mcg-salmeterol 50 1 ea inhalation BID 01/21/25 06/12/25 mcg/dose blistr powdr for inhalation lisinopril 40 mg tablet 40 mg PO DAILY 01/21/25 06/12/25 ondansetron 4 mg disintegrating 4 mg PO Q8H PRN Nausea And Vomiting 01/21/25 05/17/25 tablet pravastatin 20 mg tablet 20 mg PO DAILY 01/21/25 06/12/25 primidone 50 mg tablet 100 mg PO TID 01/21/25 06/12/25 Previous Rx's ?Medication ?Instructions ?Recorded guaifenesin 100 mg/5 mL oral liquid 100 mg (5 mL) PO Q4H PRN Cough 01/23/25 #473 mL magnesium oxide 400 mg (241.3 mg 400 mg PO BIDPC #10 tabs 01/23/25 magnesium) tablet nicotine (polacrilex) 2 mg buccal 2 mg buccal Q2H PRN Nicotine 01/23/25 lozenge Cravings #72 ea prednisone 20 mg tablet 20 mg PO DAILY #3 tabs 01/23/25 warfarin 5 mg tablet (Jantoven) 5 mg PO DAILY@1800 #7 tabs 01/23/25 acetaminophen 500 mg tablet 1,000 mg (2 x 500 mg) PO QID PRN 03/19/25 (Tylenol Extra Strength) pain #30 tabs lidocaine 5 % topical patch 1 patch topical DAILY #30 ea 03/19/25 oxycodone 5 mg capsule 5 mg PO Q6H PRN severe pain #7 caps 03/19/25 Allergies Allergy/AdvReac Type Severity Reaction Status Date / Time No Known Allergies Allergy Verified 06/12/25 10:32 Review of Systems Constitutional: Constitutional: Reports as per [facility] Past Medical History Medical History COPD (chronic obstructive pulmonary disease) Smoker unmotivated to quit Essential hypertension Social History Social History Household Members: None Housing: Apartment Do you presently have visiting nurse or other home services: No Patient Tobacco Use Status: Current everyday Tobacco user Tobacco use type: Cigarette Cigarette Packs Per Day: 0.5 Cigarettes Per Day: 10.0 Years Smoked: 30 Smoked in Last 30 Days: Yes Use of substances other than those prescribed or required for medical reasons: Yes Substance Use Type: Marijuana Substance Use Frequency: Occasionally Advance Directives: No Advance Directives Information Provided: Yes service: No Physical Exam Vital Signs: Vital Signs: Last Vital Signs Temp 98.7 F 06/12/25 18:12 Pulse 75 06/12/25 18:12 Resp 16 06/12/25 18:12 BP 165/94 H 06/12/25 18:12 Pulse Ox 97 06/12/25 18:12 O2 Del Method Room Air 06/12/25 18:12 BMI result Body Mass Index 22.0 Const: Other: Gen: ?Overall well-appearing patient, no head injury, no facial trauma Neck: Supple, no tenderness along mid spine or paraspinal area Abd: no tenderness no rebound no rigidity MSK: FROM, strength 5/5 all extremities, pelvis is stable passively she has full range of motion of both hips both knees both ankles, her right ankle is in a Aircast from prior injury, she is tender over left SI Skin: Warm, dry, intact, no bruising noted to her back Neuro: ?Alert and oriented x3, moving upper and lower extremities symmetrically-when supine Medications Administered Discontinued Medications Generic Name Dose Route Start Last Admin Trade Name Aung PRN Reason Stop Dose Admin Dexamethasone 10 mg 06/12/25 11:26 06/12/25 11:40 Dexamethasone 2 Mg Tablet PO 06/12/25 11:27 10 mg ONCE ONE Administration Lidocaine 1 patch 06/12/25 11:26 06/12/25 11:41 Lidocaine 4 % Patch Adh..Patch TRANSDERMA 06/12/25 11:27 1 patch ONCE ONE Administration Protocol Oxycodone HCl 10 mg 06/12/25 11:26 06/12/25 11:40 Oxycodone Hcl Immed Release 5 Mg Tablet PO 06/12/25 11:27 10 mg ONCE ONE Administration Oxycodone HCl 5 mg 06/12/25 13:31 06/12/25 13:38 Oxycodone Hcl Immed Release 5 Mg Tablet PO 06/12/25 13:32 5 mg ONCE ONE Administration Medical Decision Making Medical Decision Making [facility] Narrative: Patient is presenting with nonsyncopal fall, did not feel further workup such as cardiac enzymes such as troponin, ECG indicated at this time, I may obtain them if patient is to be kept for rehab placement, there was no evidence for head injury neck injury did not feel further imaging such as CT of the head and neck is indicated, she has full range of motion of the hip she is very tender over SI joint we will obtain pelvic x-ray to evaluate for hip fracture, occult fracture, pubic rami fractures, we will medicate for pain, and then we will determine if patient can be ambulatory. 13:30 patient re-evaluated with her daughter at bedside, patient states she is feeling somewhat better but not fully ready to ambulate, we will premedicate, then make sure she is ambulatory, x-rays discussed with the patient patient again re-evaluated no back issues, no step-offs, she is still distended over her left SI 14:50 patient ambulated with a steady gait, but family states that they feel like patient needs to go to rehab because she is going to be laying in bed all day because of thrive right ankle injury and now this contusion she needs some help so they are requesting case management 18:00 we will obtain baseline labs urinalysis, CT pelvis as long as patient is staying overnight and she has been evaluated yet by PT case management and probably will stay overnight 18:35 INR 9.4, and I we will continue holding warfarin, and give 5 mg of p.o. vitamin K 1939: I was also notified by nurse that patient's family came in and gave her a dose of warfarin without speaking to a staff apparently that was before patient received vitamin case INR will continue to need to be monitored Differential Diagnosis Differential Diagnoses: The differential diagnosis associated with the presentation includes (See above) Admission/Observation Consideration of admission/observation: Escalation of care including admission/observation considered 2022 Emergency Medicine Coding Guide from [employer] on 06/12/2025 All calculations should be rechecked by clinician prior to use RESULT SUMMARY: 5 Estimated Level of Service Problems: Moderate (4) Risk: High (5) Data: Extensive (5) NARRATIVE MDM: This patient's problem complexity is Moderate as patient: has an acute complicated injury requiring significant evaluation or with concern for morbidity or multiple treatment options. This patient's risk is High due to: overall presentation requiring evaluation for a potentially High-risk process. This patient's data complexity is Extensive due to: -multiple tests ordered -independent interpretation of imaging or EKG INPUTS: Number and Complexity ?> 7 = 4: acute, complicated injury (g) Risk level ?> 4 = High Tests ordered ?> 3 = >= Tests results reviewed (excluding labs) ?> 1 = 1 Prior external notes reviewed ?> 0 = 0 Assessment requiring and independent historian ?> 0 = No Independent interpretation of tests ?> 1 = Yes Discussed management/test interpretation w/external professional ?> 0 = No Lab Data 06/12/25 18:21 06/12/25 18:21 Labs: Lab Results 06/12/25 06/12/25 Range/Units 18:20 18:21 WBC 10.8 (4.8-10.8) X10*3/uL RBC 5.40 D (4.20-5.50) X10*6/uL Hgb 16.9 H D (12.0-16.0) g/dl Hct 46.0 (37.0-47.0) % MCV 85.2 (80.0-98.0) fL MCH 31.3 (27.0-33.0) pg MCHC 36.7 H (31.0-35.0) g/dl RDW 13.9 (11.0-16.0) % Plt Count 312 (160-400) X10*3/uL MPV 8.5 L (9.4-12.3) fL Immature Gran % (Auto) 0.5 H (0.0-0.4) % Neut % (Auto) 77.7 H (45-73) % Lymph % (Auto) 12.8 L (20-40) % Alger % (Auto) 8.8 (2-11) % Eos % (Auto) 0.1 (0-4) % Baso % (Auto) 0.1 (0-2) % Lymph # (Auto) 1.4 (1.2-4.9) X10*3/uL [place] # (Auto) 1.0 (0.1-1.2) X10*3/uL Eos # (Auto) 0.0 (0.0-0.4) X10*3/uL Baso # (Auto) 0.0 (0.0-0.2) X10*3/uL Abs Immat Gran (auto) 0.05 H (0.00-0.03) X10*3/uL Absolute Neuts (auto) 8.4 H (2.0-8.3) x10*3/uL Absolute Nucleated RBC 0.000 (0.0-0.012) X10*3/uL Nucleated RBC % (auto) 0.0 (0.0-0.2) /100WBC PT 107.6 H D (10.9-12.4) SEC INR 9.4 H* D (0.9-1.1) Sodium 127 L (135-145) mmol/L Potassium 4.8 (3.3-5.1) mmol/L Chloride 95 L (96-108) mmol/L Carbon Dioxide 21 L (22-29) mmol/L Anion Gap 16 (12-20) BUN 22 H (9-16) mg/dL Creatinine 0.87 (0.5-1.4) mg/dL Estim Creat Clear Calc 54.9 Estimated GFR > 60 Random Glucose 107 (60-115) mg/dL Calcium 9.7 (8.4-10.2) mg/dL Total Bilirubin 0.4 (0.0-1.0) mg/dL AST 29 (5-31) U/L ALT 16 (0-31) U/L Alkaline Phosphatase 130 H (39-117) U/L Total Protein 8.0 (6.5-8.0) g/dL Albumin 4.5 (3.5-5.0) g/dL Independent Interpretation I performed an independent interpretation of an: Plain X-Ray (No pelvic fractures, no hip fractures) Radiology Impression Discussion of test interpretation with radiology: I have reviewed the radiologist's reading. ( XR/XR hip LT w PEL1V IMPRESSION: Unremarkable examination of the left hip) Discharge Plan Discharge Clinical Impression: Contusion of hip, left, Adult failure to thrive, Elevated INR Prescriptions: No Action primidone 50 mg tablet 100 mg PO TID fluticasone propion-salmeterol 250-50 mcg/dose blister with device 1 ea inhalation BID citalopram 40 mg tablet 40 mg PO DAILY atenolol 25 mg tablet 37.5 mg PO DAILY cyanocobalamin (vitamin B-12) 1,000 mcg tablet 1,000 mcg PO DAILY pravastatin 20 mg tablet 20 mg PO DAILY albuterol sulfate 90 mcg/actuation HFA aerosol inhaler 2 puff INHALATION Q6H PRN (Reason: wheezing) lisinopril 40 mg tablet 40 mg PO DAILY ondansetron 4 mg tablet,disintegrating 4 mg PO Q8H PRN (Reason: Nausea And Vomiting) doxycycline hyclate 100 mg tablet 100 mg PO BID Rx Instructions: END DATE: 01/23/25 cholecalciferol (vitamin D3) 50 mcg (2,000 unit) capsule 50 mcg PO DAILY nicotine (polacrilex) 2 mg Lozenge 2 mg buccal Q2H PRN (Reason: Nicotine Cravings) Qty: 72 0RF guaifenesin 100 mg/5 mL Liquid 100 mg PO Q4H PRN (Reason: Cough) Qty: 473 0RF warfarin [Jantoven] 5 mg Tablet 5 mg PO DAILY@1800 Qty: 7 0RF Rx Instructions: Take 1 to 2 tablets by mouth everyday as directed PVCA prednisone 20 mg tablet 20 mg PO DAILY Qty: 3 0RF magnesium oxide 400 mg (241.3 mg magnesium) Tablet 400 mg PO BIDPC Qty: 10 0RF acetaminophen [Tylenol Extra Strength] 500 mg tablet 1,000 mg PO QID PRN (Reason: pain) Qty: 30 0RF lidocaine 5 % adhesive patch,medicated 1 patch topical DAILY Qty: 30 0RF Rx Instructions: leave on most painful area for up to 12 hrs oxycodone 5 mg capsule 5 mg PO Q6H PRN (Reason: severe pain) Qty: 7 0RF Rx Instructions: Partial Fill upon patient request. Print Language: Greek
--- OUTSIDE RECORDS SUMMARY | 2025-06-12 11:57 | XMS_ITS | Encounter Summary ---
Author Organization [facility] Address [address] [place] [address] Care Team Providers Care Pulp Screen Operator Name Role Phone Max George MD Primary Care Provider [phone] Reason for Visit * Reason Onset Date Comments Back Pain 06/12/2025 Encounter Details Date Type Department Care Team (Late st Contact Info) Description 06/12/2025 Telephone Adult Medicine [facility] [place] [address] [place] [address] Max George MD [address] [place] [address] Back Pain Social History Tobacco Use Types Packs/Day [...] as of this encounter Progress Notes * Melanie Longoria RN - 06/12/2025 9:35 AM EDT Pt has been having lower back pain for the past 4 days , the pain has been ongoing for years but isworse now. There is no known injury Pt has no chest pain or SOB, denies any N/V/D or fever, no abd pain, has pain in the lower back with no radiation, no changes in urination or in bowel habits, no numbness or tingling in the legs, hasnl CSM, pt does not c/o dizziness, Pt has 10/10 pain, she is unable to stand or walk, offered appointment but she states she cannot get out of bed, unable to drive, she is advised to call 911 and go to the ed * Jory Llanos - 06/12/2025 9:11 AM EDT Patient call requires triage: Symptoms patient is presenting: patient has been having back pain states she has issues with her discs - has been seen in past for this issue - states she is in bed flat on her back can't get up - states unable to eat because she can't cook - in a lot of pain How long has patient had these symptoms?: 2 days For ALL patients calling to schedule any appointment (routine, sick visit, follow up, consult, etc.) in the outpatient setting please ask the following questions: Do you have fever of higher than 101, sore throat with difficulty swallowing or severe shortness ofbreath? no If YES to any of these above symptoms, send a message to triage and do not book. Red dot. If no, an audio or video visit should be booked. Have you had close contact with someone with Coronavirus in the last 14 days? no Have you traveled abroad? no Have you traveled recently to another state outside of [place], [place], [place], [place], [place], [place], [place]? no o If yes, did you quarantine for 14 days or have a negative covid test? no If yes to any of the above, patient is not to be scheduled in office until after 14 day quarantine or negative covid test. If pain or injury related was it due to an accident at work or from a motor vehicle accident? If yes, date of accident/Injury: No If yes, gather 3rd republican insurance information [employer] Party Information: not applicable PCP: Max George MD Payor: [facility] MEDICARE / Plan: [facility] MEDICARE COMPLETE / Product Type: *No Product type* / documented in this encounter Plan of Treatment Upcoming Encounters Date Type Department Care Team (Late st Contact Info) Description 06/15/2025 11:10 AM EDT Office Visit [facility] [address] [place] [address] Judith Wright NP [address] [place] [address] [address] [place] [address] documented as of this encounter Visit Diagnoses Not on filedocumented in this encounter Additional Health Concerns Assessment Noted Time PHQ-9 Depression Total Score: 0 01/09/20 3:23 PM EST A fall risk assessment has been complete d for the patient 01/09/2025 3:22 PM EST documented as of this encounter Care Teams Pulp Screen Operator Relationship Specialty Start Date End Date Max George MD [address] [place] [address] PCP - General Internal Medicine 05/08/15 documented as of this encounter
--- OUTSIDE RECORDS SUMMARY | 2025-06-12 11:57 | XMS_ITS | Data Portability ---
Author Organization [place] - [facility], [facility] Address [address] [place] [address] Care Team Providers Care Manager Inventory Management Name Role Phone KEHINDE FLETCHER Primary Care Provider [phone] Assessment Encounter Date Assessment Date Assessment LastModified [...] symptoms. Audiometric testing is stable. Patient declined Crandall-Hallpike test for vertigo in the office. Symptoms and history are consistent with BPPV. The pathophysiology of BPPV was discussed in detail. Patient was provided with a referral to [facility] for Marbin maneuvers and vestibular therapy.We discussed [...] recorded. Referral vestibular therapy referral 2024 025 [facility], [address] [facility] , [address], [place], [address], 5 10:19:04 Procedures None recorded. 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 67205338 Active 2016 Otosclero sis involving oval window, nonoblite rative, right ear; Note: Changed from H80.91 to H80.01 (09/25/20 17 1:34 PM) , Date Diagnosed : 05/15/2017 10:44 AM (H80.91) Otoscle rosis involving oval window, nonoblite rative, left ear; Note: Date Diagnosed : 05/15/2017 10:44 AM (H80.02) Not Available [facility] 4 02:26:17 Mixed conductiv e and sensorine ural hearing loss of right ear 69268836949 105 Active 2016 Mixed conductiv e and sensorine ural hearing loss, unilatera l, right ear with restricte d hearing on the contralat eral side; Note: Date Diagnosed : 07/16/2017 3:45 PM (H90.A31) Not Available [facility] 4 02:25:54 Sensorine ural hearing loss in left ear [id number] 109 Active 2016 Sensorine ural hearing loss, unilatera l, left ear, with restricte d hearing on the contralat eral side; Note: Date Diagnosed : 07/16/2017 3:46 PM (H90.A22) Not Available [facility] 4 02:26:02 Follow-up visit Active 2016 Medical surveilla nce following completed treatment ; Note: Date Diagnosed : 7 10:48 AM (Z09) Medical surveilla nce following completed treatment ; Note: Date Diagnosed : 05/22/2017 1:36 PM (Z09) ; Start Date : 7 Not Available [facility] 4 02:26:05 Mixed conductiv e and sensorine ural hearing loss, bilateral 869736213 Active 2017 Mixed conductiv e and sensorine ural hearing loss, bilateral ; Note: Date Diagnosed : 11/26/2017 2:33 PM (H90.6) Mixed conductiv e and sensorine ural hearing loss, bilateral ; Note: Date Diagnosed : 02/05/2017 2:25 PM (H90.6) ; Start Date : 7 Not Available [facility] 4 02:25:49 Sudden idiopathi c hearing loss 174890803 Active 2021 Sudden idiopathi c hearing loss, left ear; Note: Date Diagnosed : 08/21/2022 12:30 PM (H91.22) Not Available [facility] 4 02:25:54 Sensorine ural hearing loss in right ear 58494477509 100 Active 2021 Sensorine ural hearing loss, unilatera l, right ear, with restricte d hearing on the contralat eral side; Note: Date Diagnosed : 08/21/2022 11:55 AM (H90.A21) Not Available [facility] 4 02:26:15 Mixed conductiv e and sensorine ural hearing loss of left ear 74519080042 107 Active 2021 Mixed conductiv e and sensorine ural hearing loss, unilatera l, left ear with restricte d hearing on the contralat eral side; Note: Date Diagnosed : 08/21/2022 11:55 AM (H90.A32) Not Available [facility] 4 02:25:53 Sensorine ural hearing loss of bilateral ears 513514493 Active 2021 Sensorine ural hearing loss, bilateral ; Note: Date Diagnosed : 09/19/2022 4:14 PM (H90.3) Not Available [facility] 4 02:26:11 Vertigo 873816256 Active 2024 RAYA TYLER MA, CCC-A [address] [facility],[address] [facility], [place], [address] , [facility] - [facility] 5 10:47:35 Benign paroxysma l positiona l vertigo 724244397 Active 2024 TRINI HUYNH PA-C [address] [facility],[place] [address], [place], [address] , [facility] - [facility] 5 11:23:15 Problem Notes None recorded. Procedures Surgical History Date Name Laterality Status Provider Name and Address Organization Details Recorded Time 12/01/2024 Comp Audio with Tymps - 25244 & 70683 completed RAYA TYLER MA, CCC-A [address] [facility],[address], [place], [address], [facility] 12/01/2024 10:44:24 Imaging Results None recorded. [...] mg tablet 2021 active Medicati on ID: [id number] D uration Value: 14 Brand Name: predniso [...] mg tablet 2016 active Medicati on ID: [id number] D uration Value: 30 Brand Name: meloxica [...] eye drops 10/16 completed Medicati on ID: [id number] D uration Value: 5 Prescri bed By [...] mg tablet 2016 active Medicati on ID: [id number] D uration Value: 15 Brand Name: trazodon [...] Not Available Not Available No t Available [place] 5 mg-325 mg tablet 1-2 tablet by mouth 2016 active Medicati on ID: [id number] D uration Value: 7 Prescri bed By Name: Rome Warren M.D. Bra nd Name: Jasmyne Se nd Method: E-Prescr ibed Sub s Allowed: subs OK Medic ationGen ericName : [place] Not Available Not Available Not Available lisinopri l 40 mg tablet TAKE 1 TABLET BY MOUTH DAILY active Not Available Not Available No t Available sertralin e 50 mg tablet 2016 active Medicati on ID: [id number] D uration Value: 30 Brand Name: sertrali [...] SNOMED-CT Code Diagnosis ICD10 Code Diagnosis Note [id number] TRINI HUYNH PA-C [facility] [address] [place] [address] 12/01/2024 10:07:13 12/01/2024 11:23:18 Nonobliterative otosclerosis involving oval window [id number] H80.01 H80.02 Sensorineu ral hearing loss in right ear 9990702473 9100 H90.A21 Audiologic al evaluation results: Right ear: Mild SNHL thru 4000Hz dropping to severe at 8000Hz with excellent word recognitio n. Left ear: Moderate to mild mixed hearing loss thru 4000Hz drpping to moderate-s evere at 6 & 8kHz with excellent word recognitio n. Tympanomet ry: Right Ear:Type Ad Left Ear:Type Ad Benign par oxysmal positional vertigo [id number] H81.13 Health Concerns Section Related Observation LastModified by Organization Detai ls LastModified Time None Recorded Concern Status LastModified by Organization Details LastModified Time None Recorded Advance Directives Directive None Recorded Payers Insurance Date Sequence Insurance Name Policy Number Policy Tran Covered Member ID Tran Member ID Guarantor Name 11/30/2024 2 MEDICAID-[place]: [facility] Raya Soler [id number] Raya Soler 12/01/2024 1 [facility] (MEDICARE REPLACEMENT/ ADVANTAGE - PPO) [id number] Raya Soler [id number] Raya Soler OBGyn Episode No OBEpisode recorded.
[2025-06-12] MEDS: oxyCODONE HCl Immed Release 5 MG TABLET PO ×2 (13:38→22:03)
--- NOTE | 2025-06-12 14:58 | PC.NURSE ---
Dtr request case management consult for possible rehab citing I think my mother is going to go home and not do anythng
[2025-06-12 18:24] LABS: MANUAL DIFF FLAG NO
[2025-06-12 18:25] LABS: Hematocrit 46.0 % (37.0-47.0); Hemoglobin 16.9 g/dl (12.0-16.0); Imm Gran Abs Auto 0.05 X10*3/uL (0.00-0.03); Imm Gran Pct Auto 0.5 % (0.0-0.4); Lymphocytes Absolute Auto 1.4 X10*3/uL (1.2-4.9); Mean Corpuscular HGB Conc 36.7 g/dl (31.0-35.0); Mean Corpuscular Hemoglobin 31.3 pg (27.0-33.0); Mean Corpuscular Volume 85.2 fL (80.0-98.0); NRBC Abs Auto 0.000 X10*3/uL (0.0-0.012); NRBC Pct Auto 0.0 /100WBC (0.0-0.2); Platelet Count 312 X10*3/uL (160-400); Red Blood Count 5.40 X10*6/uL (4.20-5.50); White Blood Count 10.8 X10*3/uL (4.8-10.8)
[2025-06-12 18:42] LABS: INTERNATIONAL NORM RATIO 9.4 (0.9-1.1); Prothrombin Time 107.6 SEC (10.9-12.4)
[2025-06-12 18:43] LABS: Alanine Aminotransferase 16 U/L (0-31); Albumin Level 4.5 g/dL (3.5-5.0); Alkaline Phosphatase 130 U/L (39-117); Anion Gap 16 (12-20); Aspartate Amino Transferase 29 U/L (5-31); Blood Urea Nitrogen 22 mg/dL (9-16); Calcium 9.7 mg/dL (8.4-10.2); Carbon Dioxide 21 mmol/L (22-29); Chloride 95 mmol/L (96-108); Creatinine Clr Calc Pharmacy 54.9; Estimated Glomerular Filt Rate > 60; Potassium 4.8 mmol/L (3.3-5.1); Sodium 127 mmol/L (135-145); Total Protein 8.0 g/dL (6.5-8.0)
--- NOTE | 2025-06-12 19:30 | PC.NURSE ---
patient arrived at change of shift from main ED, Vit K not given and prior to coming over patients family brought home warfarin and patient took 10mg dose. Dr Mckinney aware and plan is to continue to monitor for bleeding. Med rec done and medications sent back home with daughters
[2025-06-12] MEDS: Phytonadione (Vit K1) Oral 10 MG/ML AMPUL 5 MG PO (20:05)
--- NOTE | 2025-06-12 20:07 | MHC.CM.ED ---
CM met with patient to discuss discharge planning. Pt lives alone. Uses no DME/services. Is very independent. Was working at [employer]. On medical leave due to a fractured ankle in March. PCP, address and insurance verified. No HCP on file. HCP reviewed, completed and signed. Copies given. Uploaded into [employer] and [facility] [employer] HCP/daughter Enriqueta Soler ([phone]). Pt agreeable to PT evaluation in the am. Requesting local referrals, with [facility] as patients first choice. Referrals made. CM will follow for safe discharge planning.
[2025-06-13 05:01] VITALS: BP 160/89; PULSE 71; RESP 18; TEMP 36.7; O2SAT 97
--- NOTE | 2025-06-13 07:40 | PC.NURSE ---
Report taken from previous rn, it was understood pt is awaiting pt eval prior to placement in rehab secondary to back discomfort. she is caox4 with a strong and regular radial pulse, her resps are nonlabored. she understands her plan of care. Raya can communicate her needs and is not incontinent.
[2025-06-13 07:55] VITALS: BP 137/67; PULSE 56; RESP 18; TEMP 37.1; O2SAT 95
[2025-06-13] MEDS: Fluticasone/Vilanterol 100/25 BLST.W.DEV 1 PUFF INHALE (08:16)
--- NOTE | 2025-06-13 08:20 | PC.NURSE ---
pt is reporting continued pain, she is requesting additional oxycodone for pain, this was passed on to Dr. Chavez. her INR was ordered.
[2025-06-13 08:22] VITALS: BP 152/66; PULSE 80; RESP 18; TEMP 36.7; O2SAT 95
[2025-06-13] MEDS: oxyCODONE HCl Immed Release 5 MG TABLET PO ×3 (09:27→21:48)
[2025-06-13 09:39] LABS: Prothrombin Time 78.6 SEC (10.9-12.4)
[2025-06-13 09:42] LABS: INTERNATIONAL NORM RATIO 6.8 (0.9-1.1)
[2025-06-13 09:47] LABS: Resp Syncy Virus RNA Qual PCR NEGATIVE (Negative); SARS COV2 PCR INHOUSE NEGATIVE (Negative)
--- NOTE | 2025-06-13 10:24 | MHC.CM.ED ---
Patient remains in ER overflow. [facility] is able to offer a bed pending ins auth and PT eval. Per PT note, INR is too elevated to evaluate. Repeat INR is currently 6.8. Continue to monitor for d/c needs.
[2025-06-13 12:02] VITALS: BP 159/79; PULSE 54; RESP 18; TEMP 37; O2SAT 97
--- NOTE | 2025-06-13 13:54 | PHA.MEDREC ---
Addendum entered by John Baez PharmD 06/13/25 14:10: reviewed Original Note: Pharmacy Consult ? Medication Reconciliation Pharmacy has reviewed the medication reconciliation done by nursing. Claims match med list.
--- NOTE | 2025-06-13 18:52 | PC.NURSE ---
Pt c/o returning worsening pain, requesting more pain med, explained it wasnt due for another 3 hours. Pt appears uncomfortable lying in bed. Pt also endorses foul smelling urine and no bm x 4 days. Case management provider notified via [place] text
[2025-06-13 19:21] VITALS: BP 115/63; PULSE 66; RESP 16; TEMP 36.2; O2SAT 95
--- NOTE | 2025-06-13 20:37 | MHC.CM.ED ---
CM met with patient to discuss ongoing discharge plan. Pt is aware that [facility] has a bed. Aware that PT will not see her for evaluation until her INR is 5 or below. Currently is 6.8 Will upload PT when available. Pt has [facility]. Pt is aware that insurance auth can take 1-2 days.
[2025-06-13 21:44] LABS: Appearance Urine Clear; Glucose Urine UA Negative (Negative); PH 5.5 (5.0-9.0); Specific Gravity - Urine 1.025 (1.005-1.025); UMIC TRIGGER UACC YES
[2025-06-13 21:47] LABS: UACC Culture Trigger YES
[2025-06-13] MEDS: Milk of Magnesia 30 ML ORAL.SUSP 20 ML PO (21:48)
--- NOTE | 2025-06-14 | PC.NURSE ---
Took over care from RN Meera, pt sleeping, so sign of distress.
--- NOTE | 2025-06-14 04:58 | PC.NURSE ---
Pt assisted to the bathroom and back to bed.
[2025-06-14 05:14] VITALS: BP 134/72; PULSE 64; RESP 16; TEMP 36.1; O2SAT 98
[2025-06-14] MEDS: oxyCODONE HCl Immed Release 5 MG TABLET PO ×3 (05:43→21:11)
[2025-06-14 08:32] VITALS: PULSE 67; RESP 18; O2SAT 97
[2025-06-14] MEDS: Fluticasone/Vilanterol 100/25 BLST.W.DEV 1 PUFF INHALE (08:35)
[2025-06-14 09:04] VITALS: BP 111/60; PULSE 80; RESP 16; TEMP 36.3; O2SAT 92
[2025-06-14 09:43] LABS: INTERNATIONAL NORM RATIO 1.8 (0.9-1.1); Prothrombin Time 20.6 SEC (10.9-12.4)
[2025-06-14] MEDS: Milk of Magnesia 30 ML ORAL.SUSP 20 ML PO (09:58)
--- NOTE | 2025-06-14 11:40 | MHC.CM.ED ---
Patient remains in ER overflow Physical therapy eval completed. Outpatient services are recommended. Met with patient to discuss d/c planning. Patient stated I can't go home. I can't walk. T/W reminded patient she ambulated with phsycial therapy. Patient stated yes because they made me. I live alone. I can't cook for myself. Attempted to explain regulations regarding insurance auth for short term rehab. Patient called her daughter, Amanda and requested T/W speak with her. Spoke with Amanda via telephone. Explained physical therapy finding and insurance auth. Amanda requesting [facility] attempt auth anyway. Clinical updates will be sent to [facility]. Continue to monitor for d/c needs.
[2025-06-14 14:00] VITALS: BP 118/66; PULSE 66; RESP 16; TEMP 36.2; O2SAT 97
--- NOTE | 2025-06-14 15:13 | PC.NURSE ---
Pt had large bowel movement. refused bowel meds
[2025-06-14 21:09] VITALS: BP 100/61; PULSE 83; RESP 16; TEMP 36.8; O2SAT 95
[2025-06-15] MEDS: oxyCODONE HCl Immed Release 5 MG TABLET PO ×3 (04:44→21:26)
[2025-06-15 06:00] VITALS: BP 106/70; PULSE 61; RESP 18; TEMP 36; O2SAT 98
[2025-06-15] MEDS: Fluticasone/Vilanterol 100/25 BLST.W.DEV 1 PUFF INHALE (08:27)
[2025-06-15] MEDS: Milk of Magnesia 30 ML ORAL.SUSP 20 ML PO (08:28)
[2025-06-15 08:29] VITALS: PULSE 57; RESP 18; O2SAT 96
--- NOTE | 2025-06-15 08:40 | PC.NURSE ---
Addendum entered by Zoraida Sabillon RN 06/15/25 08:43: Patient is a 69 yo female presenting with nonsyncopal/mechanical fall, did not feel further workup such as cardiac enzymes such as troponin, ECG there was no evidence for head injury neck injury did not feel further imaging such as CT of the head and neck is indicated, she has full range of motion of the hip she is very tender over left SI joint we will obtain pelvic x-ray to evaluate for hip fracture, occult fracture, pubic rami fractures which was negative. Alert and oriented. Lungs essentially clear bilat. Intermittent congested cough noted. Respirations even and non-labored. Abdomen flat, soft, non-tender with positive bowel sounds. Positive pedal pulses with no edema. Continues to c/o left hip pain. Pending STR. Original Note: Medical History COPD (chronic obstructive pulmonary disease) Smoker unmotivated to quit Essential hypertension
--- NOTE | 2025-06-15 08:57 | MHC.CM.ED ---
Addendum entered by Tess Whitehead 06/15/25 12:10: STR auth denied by [facility]. Patient aware. Received notification from Abiel at [facility] that they will accept patient under [facility] pending. Daughter is completing a [employer] application. Level 1 and MDS completed. Sent to [facility] and [facility]. Original Note: Patient remains in ER overflow. Received telephone call from [facility]. speech and hearing clinic director is requesting peer to peer conversation. Provider can call [phone] option 5. This needs to be completed by 1pm. Asha CAM aware. Continue to monitor for d/c needs.
[2025-06-15 14:10] VITALS: BP 102/51; PULSE 51; RESP 13; TEMP 36.6; O2SAT 98
[2025-06-15 20:51] VITALS: BP 142/65; PULSE 55; RESP 18; TEMP 36.5; O2SAT 97
[2025-06-15 23:27] VITALS: BP 142/65; PULSE 55; RESP 18; TEMP 36.5; O2SAT 97
[2025-06-16] MEDS: oxyCODONE HCl Immed Release 5 MG TABLET PO (05:21)
[2025-06-16 06:14] VITALS: BP 135/61; PULSE 52; RESP 18; TEMP 36.3; O2SAT 95
[2025-06-16 06:30] LABS: INTERNATIONAL NORM RATIO 1.1 (0.9-1.1); Prothrombin Time 12.4 SEC (10.9-12.4)
--- NOTE | 2025-06-16 06:53 | PC.NURSE ---
0600 Pt alert oriented x 4. Able to make needs known and call button clipped to nightgown as patient is blind. Pt repositioned throughout the night. Skin intact with protective foam on buttocks. Pt receiving oxycodone and Ibuprofen for left femoral head fracture and reports good effect from receiving medication as prescribed. Last BM 06/15, utilizing purewick for urination. VSS. PT consult pending.
[2025-06-16] MEDS: Fluticasone/Vilanterol 100/25 BLST.W.DEV 1 PUFF INHALE (08:08)
[2025-06-16 08:10] VITALS: PULSE 64; RESP 18; O2SAT 98
[2025-06-16 09:12] VITALS: BP 111/61
--- NOTE | 2025-06-16 09:56 | PC.NURSE ---
Assumed care of pt at 0700. Pt resting in bed quietly, a/ox3, respirations even and unlabored, no increased wob/sob noted, appears in no distress. Pt up oob ambulatory to bathroom with delivery director- steady gait. Medicated per JAN with morning medications- missing Atenolol and Pravastatin d/t not stocked in pyxis. Pharmacy notified- pt updated on plan of care. EMS here to transfer pt to [facility]- facility notified of missing/given morning medications.
[2025-06-16 10:08] VITALS: BP 111/61; PULSE 64; RESP 18; TEMP 36.3; O2SAT 95
== END 2025-06-16 10:09 ==
PROVIDERS: Emergency Medicine; Physician Assistant; Physician Assistant Medical; Emergency Provider Emergency Medicine; PCP Internal Medicine
DX: S70.02XA Contusion of left hip, initial encounter (principal); W18.30XA Fall on same level, unspecified, initial encounter; R62.7 Adult failure to thrive; Z68.22 Body mass index [BMI] 22.0-22.9, adult; R79.1 Abnormal coagulation profile; K59.00 Constipation, unspecified; I10 Essential (primary) hypertension; J44.9 Chronic obstructive pulmonary disease, unspecified; F17.210 Nicotine dependence, cigarettes, uncomplicated; F12.90 Cannabis use, unspecified, uncomplicated; Z91.81 History of falling; Z03.818 Encounter for observation for suspected exposure to other biological agents ruled out; Z79.01 Long term (current) use of anticoagulants; Z79.899 Other long term (current) drug therapy; Y93.9 Activity, unspecified; Y92.039 Unspecified place in apartment as the place of occurrence of the external cause; Y99.9 Unspecified external cause status
CPT/HCPCS: 36415; 72192; 73502; 80053; 81001; 85025; 85610; 87086; 87637; 94640; 97161; 99285; J8540

== ENCOUNTER → 2025-06-12 11:26 | Outpatient (BNV) | payer MEDICARE, SELFPAY | PROVIDERS: Emergency Provider Emergency Medicine; PCP Internal Medicine; Visit Provider Radiology Diagnostic Radiology | DX: M16.0 Bilateral primary osteoarthritis of hip (principal); M25.552 Pain in left hip | CPT/HCPCS: 72192; 73502 ==